=== PATIENT | male | born 1965 | race Caucasian/White ===

== ENCOUNTER 2023-06-03 08:51 | Outpatient (RCR) | payer BC, SELFPAY | END 2023-07-14 16:08 | disposition home or self-care (01) | LOC: PT 08:51 | PROVIDERS: PCP Family Medicine | DX: Z98.890 Other specified postprocedural states (principal) | CPT/HCPCS: 97110; 97112; 97163 ==

== ENCOUNTER 2024-03-07 09:15 | Outpatient (OUT) | payer BC, SELFPAY ==
--- OUTSIDE RECORDS SUMMARY | 2024-03-07 09:30 | XMS_ITS | CCD ---
Author Organization [facility] Care Team Providers Care Waiter/Waitress Captain Name Role Phone Wendy Daniel MD Unavailable Wendy Daniel Primary Care Physician [phone] Wendy Daniel MD Unavailable MARÍA ., DR NGUYEN Consulting Unavailable HOY ., DR NGUYEN Primary Care Unavailable HOY ., DR NGUYEN Admitting Unavailable HOY ., DR NGUYEN Attending Unavailable ZIEBER, DR MAURICE Holly Consulting Unavailable HOY ., DR NGUYEN Admitting Unavailable HOY ., DR NGUYEN Consulting Unavailable HOY ., DR NGUYEN Primary Care Unavailable HOY ., DR NGUYEN Attending Unavailable STAPLETON, DR DAYANARA Harrison Consulting Unavailable DAYANARA ALVAREZ Consulting Unavailable HOY ., DR NGUYEN Consulting Unavailable HOY ., DR NGUYEN Admitting Unavailable HOY ., DR NGUYEN Primary Care Unavailable HOY ., DR NGUYEN Attending Unavailable HOY ., DR NGUYEN Consulting Unavailable HOY ., DR NGUYEN Admitting Unavailable HOY ., DR NGUYEN Primary Care Unavailable HOY ., DR NGUYEN Attending Unavailable HOY ., DR NGUYEN Attending Unavailable HOY ., DR NGUYEN Admconrad Unavailable HOY ., DR NGUYEN Consulting Unavailable HOY ., DR NGUYEN Primary Care Unavailable ZIEBER, DR MAURICE Holly Consulting Unavailable HOY ., DR NGUYEN Admitting Unavailable HOY ., DR NGUYEN Consulting Unavailable HOY ., DR NGUYEN Primary Care Unavailable HOY ., DR NGUYEN Attending Unavailable ZIEBER, DR MAURICE Holly Consulting Unavailable NILL ., DR SHUKLA Attending Unavailable HOY ., DR NGUYEN Primary Care Unavailable NILL ., DR SHUKLA Consulting Unavailable NILL ., DR SHUKLA Admitting Unavailable LEXIE MARTELL Consulting Unavailable CAYLA WEINSTEIN Consulting Unavailable HOY ., DR NGUYEN Admconrad Unavailable HOY ., DR NGUYEN Consulting Unavailable HOY ., DR NGUYEN Primary Care Unavailable HOY ., DR NGUYEN Attending Unavailable Hoy Wendy ORR M Primary Care Provider [phone] Wendy Daniel MD Attending Unavaila ble WENDY DANIEL Primary Care Unavailable PELLE, CLIFF Referring Unavailable BONUS, KEON Attending Unavailable WENDY DANIEL Primary Care Unavailable PELLE, CLIFF Referring Unavailable WENDY DANIEL M Primary Care Unavailable ETHEL INGRAM Referring Unavailable WENDY DANIEL Primary Care Unavailable PELLE, CLIFF Referring Unavailable PELLE, CLIFF Referring Unavailable PELLE, CLIFF Attending Unavailable GRANADO, NICHOLE Referring Unavailable GRANADO, NICHOLE Attending Unavailable BONUS, KEON Attending Unavailable BONUS, KEON Referring Unavailable WENDY DANIEL Primary Care Unavailable PELLE, CLIFF Attending Unavailable PELLE, CLIFF Admitting Unavailable PELLE, CLIFF Referring Unavailable WENDY DANIEL Primary Care Unavailable PEYTON, KEON Attending Unavailable MD Essie Toscano Attending Provider MD Wendy Daniel Primary Care Provider [phone] María Wendy Johnny Primary Care Unavailable Asaad, Imad Attending Unavailable Asaad, Imad Admitting Unavailable NILGayla Mishra R Attending Unavailable NILL, Gayla R Attending Unavailable NILL, Gayla Holly Attending Unavailable Medications Current Medications Medication Drug Class(es) Dates Sig (Normalized) Sig (Original) gabapentin (7 sources) Anti-epileptic Agent Start: 01-27-2023 gabapentin as directed, Refills(s) 0 Start Date: 01/27/23 Status: Ordered Start: 01-23-2023 End: 02-22-2023 take 1 capsule by mouth three times daily gabapentin (NEURONTIN) 300 mg capsule Take 1 capsule by mouth three times daily for 30 days. 90 capsule 0 01/23/2023 Active Comment on above: Take [address] [facility] three times daily for 30 days. oxaprozin 600 mg oral tablet (8 sources) Nonsteroidal Anti-inflammatory Drug Start: 07-22-2023 take 600 mg by mouth once daily Oxaprozin Active 600 MG PO Daily July 22, 2023 12:00am Start: 01-01-2023 take [address] [facility] once daily oxaprozin (DAYPRO) 600 mg tablet Take 1,200 mg by mouth once daily. 0 01/01/2023 Active Comment on above: Take 1,200 mg by erick th once daily. tamsulosin hydrochloride 0.4 mg oral capsule (18 sources) alpha-Adrenergic Pascale Start: 07-22-2023 take 0.4 mg by mouth once daily Tamsulosin Active 0.4 MG PO Daily July 22, 2023 12:00am Start: 08-16-2020 tamsulosin (FL OMAX) 0.4 mg Take by mouth. 0 08/16/2020 Active Comment on above: Take by mouth. Completed/Discontinued Medications Medication Drug Class(es) Dates Sig (Normalized) Sig (Original) baclofen 20 mg oral tablet (5 sources) gamma-Aminobutyri c Acid-ergic Agonist Start: 01-01-2023 take 1 tablet by mouth once daily at bedtime baclofen (LIORESAL) 20 mg tablet Take 20 mg by mouth daily at bedtime. 0 01/01/2023 Active Comment on above: Take 20 mg by mouth daily at bedtime. methocarbamol 500 mg oral tablet (9 sources) Muscle Relaxant Start: 03-27-2023 take 1 tablet by mouth every eight hours as needed methocarbamol (ROBAXIN) 500 mg tablet Take 1 tablet by mouth three times daily as needed for up to 28 doses. 28 tablet 0 03/27/2023 Active Comment on above: Take 1 tablet by erick th three times daily as needed for up to 28 doses. tiZANidine 4 mg oral tablet (5 sources) Central alpha-2 Adrenergic Agonist Start: 01-19-2023 tiZANidine (ZANAFLEX) 4 mg tablet Take 8 mg by mouth daily at bedtime. 0 01/19/2023 Active Comment on above: Take 8 mg by mouth d aily at bedtime. Problems Active Problems Problem Classification Problem Date Documented Da te Episodic/Chronic Alcohol-related disorders (16 sources) Alcohol abuse; Translations: [Alcohol dependence, uncomplicated] Onset: 01-15-2023 01-21-2023 Chronic Deficiency and other anemia (1 source) Anemia, unspecified; Translations: [ANEMIA UNSPECIFIED] Onset: 01-19-2023 Episodic Hyperplasia of prostate (13 sources) Benign prostatic hyperplasia; Translations: [Benign prostatic hyperplasia without lower urinary tract symptoms] Onset: 02-26-2023 01-21-2023 Chronic Other acquired deformities (1 source) Lumbar spondylolisthesis; Translations: [Spondylolisthesis, lumbar region] Episodic Other and unspecified benign neoplasm (1 source) Benign neoplasm of transverse colon; Translations: [BENIGN NEOPLASM OF TRANSVERSE COLON] Onset: 02-26-2023 Episodic Other and unspecified benign neoplasm (1 source) Benign neoplasm of colon; Translations: [Benign neoplasm of colon, unspecified] Onset: 03-03-2023 Episodic Other and unspecified benign neoplasm (1 source) Adenomatous polyp of colon 03-03-2023 Episodic Other and unspecified benign neoplasm (1 source) Polyp of colon; Translations: [Polyp of colon] Onset: 07-22-2023 Episodic Other connective tissue disease (1 source) Pain in left leg; Translations: [PAIN IN LEFT LEG] Onset: 01-18-2023 Episodic Other connective tissue disease (1 source) Pain in right leg; Translations: [PAIN IN RIGHT LEG] Onset: 01-18-2023 Episodic Other gastrointestinal disorders (4 sources) Other fecal abnormalities; Translations: [OTHER FECAL ABNORMALITIES] Onset: 02-18-2023 Episodic Other gastrointestinal disorders (1 source) Occult blood in stools 01-28-2023 Episodic Other male genital disorders (2 sources) Impotence 01-21-2023 Chronic Other nervous system disorders (1 source) Other chronic pain; Translations: [Chronic left-sided low back pain with left-sided sciatica] Onset: 01-23-2023 Chronic Other non-traumatic joint disorders (5 sources) Pain in left hip; Translations: [PAIN IN LEFT HIP] Onset: 10-09-2022 Episodic Other nutritional; endocrine; and metabolic disorders (2 sources) Overweight in adulthood with body mass index of 25 or more but less than 30 01-27-2023 Episodic Other screening for suspected conditions (not mental disorders or infectious disease) (2 sources) Encounter for screening for malignant neoplasm of rectum; Translations: [Encounter for screening for malignant neoplasm of prostate] Onset: 06-26-2022 Episodic Residual codes; unclassified (2 sources) History of lumbar laminectomy; Translations: [Other specified postprocedural states] Episodic Spondylosis; intervertebral disc disorders; other back problems (2 sources) Lumbar spondylosis; Translations: [Spondylosis without myelopathy or radiculopathy, lumbar region] Onset: 01-23-2023 Chronic Substance-related disorders (13 sources) Smoker; Translations: [Nicotine dependence, cigarettes, uncomplicated] Onset: 02-26-2023 01-21-2023 Chronic Varicose veins of lower extremity (1 source) Varicose veins of bilateral lower extremities with pain; Translations: [VARICOSE VNS SAQIB LOW EXTREM W/PAIN] Onset: 01-19-2023 Episodic Past or Other Problems Problem Classification Problem Date Documented Da te Episodic/Chronic Administrative/social admission (2 sources) Education and/or schooling finding; Translations: [Problems related to education and literacy, unspecified] Onset: 03-18-2023 Episodic Other acquired deformities (1 source) Spondylolisthesis , lumbar region; Translations: [Spondylolisthesi s of lumbar region] Onset: 01-23-2023 Episodic Spondylosis; intervertebral disc disorders; other back problems (17 sources) Lumbar radiculopathy; Translations: [Radiculopathy, lumbar region] Onset: 01-07-2023 Episodic Results Test Name Value Interpretation Reference Range Facility Outside Colonoscopyon 2022 Outside Colonoscopy [id number]#1 .00CD:127 Normal [facility] Pathology Noteon 08-11-2023 Pathology Note [id number]# 1.00CD:127 [facility] 07-22-2023 L - -------- Specimen: [id number] Received: 07/22/23 Status: ARIEL Henriquez Num: [id number] Spec Type: Surgical Subm Dr: Essie Toscano MD Tissues: A Colon Biopsy (CECAL POLYP) B Colon Biopsy (ASCENDING COLON POLYP) C Colon Biopsy (SIGMOID POLYP) D Colon Biopsy (RECTAL POLYP) Procedures: HE/8, Gross/Micro L4/4 -------- Age/ Patient Sex Location Account Attending Physician -------- Mimi Villasenor /[facility] [id number] Essie Toscano MD -------- SPEC NUM: [id number] RECD: 07/22/23 STATUS: ARIEL HENRIQUEZ NUM: [id number] EDUARDO: 07/22/23-[address] [facility] [address]: Essie Toscano MD ENTERED: 07/22/[address] [facility] [address]: PAYTON TYPE: Surgical DEPT: S ENTERED BY: [id number] RECV BY: [id number] ORDERED: HE/8, Gross/Micro L4/4 ORDERED: HE/8, Gross/Micro L4/4 Pathological Diagnosis A. Polyp, Cecum, Biopsy: Tubular Adenoma. - Negative For High Grade Dysplasia And Malignancy. B. Polyp, Ascending Colon, Biopsy: Tubular Adenoma. - Negative For High Grade Dysplasia And Malignancy. C. Polyp, Sigmoid Colon, Biopsy: Tubular Adenoma. - Negative For High Grade Dysplasia And Malignancy. D. Polyp, Rectum, Biopsy: Serrated Polyp. - Negative For Dysplasia And Malignancy. Clinical Information Colon polyps -------- Specimen: [id number] Received: 07/22/23 Status: ARIEL Henriquez Num: [id number] Spec Type: Surgical Subm Dr: Essie Toscano MD Tissues: A Colon Biopsy (CECAL POLYP) B Colon Biopsy (ASCENDING COLON POLYP) C Colon Biopsy (SIGMOID POLYP) D Colon Biopsy (RECTAL POLYP) Procedures: , Gross/Micro L4/4 -------- Patient: Mimi Villasenor [id number] (Continued) -------- Specimen: [id number] Received: 07/22/23 (Continued) Signed (signature on file) Jammie Meraz MD 07/30/23 2304 -------- Specimen: [id number] Received: 07/22/23 Status: ARIEL Henriquez Num: [id number] Spec Type: Surgical Subm Dr: Essie Toscano MD Tissues: A Colon Biopsy (CECAL POLYP) B Colon Biopsy (ASCENDING COLON POLYP) C Colon Biopsy (SIGMOID POLYP) D Colon Biopsy (RECTAL POLYP) Procedures: /Bhaskar, Gross/Micro L4/4 -------- Patient: Mimi Villasenor [id number] (Continued) -------- Specimen: [id number] Received: 07/22/23 (Continued) Gross Description A. Received in formalin labeled with the patient's name, date of and cecal polyp are two kelley tissues averaging 0.4 x 0.3 x 0.1 cm. Entirely submitted in one cassette labeled A1. B. Received in formalin labeled with the patient's name, date of and ascending colon polyp are multiple kelley tissues and fecal material measuring 3.0 x 1.7 x 0.3 cm in aggregate. Entirely submitted in one cassette labeled B1. C. Received in formalin labeled with the patient's name, date of and sigmoid polyp is one kelley tissue measuring 0.5 x 0.3 x 0.1 cm. Entirely submitted in one cassette labeled C1. D. Received in formalin labeled with the patient's name, date of and rectal polyp is one kelley tissue measuring 0.5 x 0.3 x 0.2 cm. Entirely submitted in one cassette labeled D1. Microscopic Description A. Two H E slides reviewed. The microscopic examination confirms the diagnosis. B. Two H E slides reviewed. The microscopic examination confirms the diagnosis. C. Two H E slides reviewed. The microscopic examination confirms the diagnosis. D. Two H E slides reviewed. The microscopic examination confirms the diagnosis. CPT Codes 92771b4 -------- -------- Specimen: [id number] Received: 07/22/23 Status: ARIEL Henriquez Num: [id number] Spec Type: Surgical Subm Dr: Essie Toscano MD Tissues: A Colon Biopsy (CECAL POLYP) B Colon Biopsy (ASCENDING COLON POLYP) C Colon Biopsy (SIGMOID POLYP) D Colon Biopsy (RECTAL POLYP) Procedures: HE/Bhaskar, Gross/Micro L4/4 -------- Patient: HamiltonMimi [id number] (Continued) --------- (more content not included)... [facility] CNPAngella 06-26-2023 CNPN Telephone (SPNSMN) MIMI VILLASENOR ([id number]) 1965 M BMD Date Time Provider Department 06/26/23 CLIFF GOMES During your visit today, we recorded the following information about you: Brittany Apple 06/26/2023 3:54 PM Signed Return to work letter faxed to: Akhil Cornelius And to: Attn: Tierra Confirmation received for both. Fidelia Adams 06/29/2023 5:00 PM Signed Fax and confirmed RTW letter to the updated fax number for HR Tierra [phone] Allergies As of Date: 06/26/2023 (No Known Allergies) Date Reviewed: 03/27/2023 Reviewed by: Maddie Kay, CHRISTEN - Fully Assessed Reason for Visit: Return To Work Letter [0989] Prescriptions as of 06/29/2023 - methocarbamol (ROBAXIN) 500 mg tablet Take 1 tablet by mouth three times daily as needed for up to 28 doses. - tamsulosin (FLOMAX) 0.4 mg Take by mouth. Problem List As Of Date 06/26/2023 Noted Resolved Benign prostatic hyperplasia [N40.0] 02/26/2023 Current smoker [F17.200] 02/26/2023 Alcohol abuse [F10.10] 03/10/2023 Encounter Status:Closed by BRITTANY APPLE on 06/26/23 [facility] Cherrie 06-01-2023 ROMÁN Telephone (NIQ) MIMI VILLASENOR ([id number]) 1965 M BMD Date Time Provider Department 06/01/23 KEON TODD During your visit today, we recorded the following information about you: Chyna Tar Chaser, Claudia 06/01/2023 3:10 PM Signed received Restrictions form- given to PRIMARY TEACHING ASSISTANT team to process. Peace Toney LPN 06/01/2023 4:05 PM Signed Received, Reviewed [employer] [facility] forms and need signed by Dr. Gomes Placed on Brittany's [employer], to get signed and fax/scan to patient chart Leave dates: 03/27/23-TBD Per Keon Todd note 05/28/23: He has a physical job. We discussed plan of starting PT and in 4 weeks we will evaluate for RTW. Follow up scheduled for 06/26/23. VLAD Lee Suzanna 06/10/2023 1:17 PM Signed Restrictions form completed, signed and faxed to: [employer] [facility] Confirmation received, copy scanned to chart. Allergies As of Date: 06/01/2023 (No Known Allergies) Date Reviewed: 03/27/2023 Reviewed by: Maddie Kay, CHRISTEN - Fully Assessed Reason for Visit: Restriction form [Other] Prescriptions as of 06/10/2023 - methocarbamol (ROBAXIN) 500 mg tablet Take 1 tablet by mouth three times daily as needed for up to 28 doses. - tamsulosin (FLOMAX) 0.4 mg Take by mouth. Problem List As Of Date 06/01/2023 Noted Resolved Benign prostatic hyperplasia [N40.0] 02/26/2023 Current smoker [F17.200] 02/26/2023 Alcohol abuse [F10.10] 03/10/2023 Encounter Status:Closed by BRITTANY APPLE on 06/10/23 [facility] Cherrie 05-07-2023 ROMÁN Telephone (NIQ) MIMI VILLASENOR ([id number]) 1965 M BMD Date Time Provider Department 05/07/23 CLIFF GOMES During your visit today, we recorded the following information about you: Jessy Apodaca Oncology Physician Assistant 05/07/2023 12:25 PM Signed Patient is calling to know if he can start doing some yard work like riding his formulation chemist anything light he can do around the home call back [phone] Yaya Coronel RN 05/07/2023 1:22 PM Signed Neuro SPINE CARE COORDINATION QUICK NOTE SERVICE DATE: 04/10/2023- YOUNG with Keon BRITO SURGERY DATE: 03/27/23 L3-4 laminectomy Call to the pt to clarify 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 All post op restrictions have been reviewed at length Allergies As of Date: 05/07/2023 (No Known Allergies) Date Reviewed: 03/27/2023 Reviewed by: Maddie Kay RN - Fully Assessed Reason for Visit: Patient Question [2287] Prescriptions as of 05/07/2023 - methocarbamol (ROBAXIN) 500 mg tablet Take 1 tablet by mouth three times daily as needed for up to 28 doses. - tamsulosin (FLOMAX) 0.4 mg Take by mouth. Problem List As Of Date 05/07/2023 Noted Resolved Benign prostatic hyperplasia [N40.0] 02/26/2023 Current smoker [F17.200] 02/26/2023 Alcohol abuse [F10.10] 03/10/2023 Encounter Status:Closed by YAYA CORONEL on 05/07/23 [facility] Cherrie 04-27-2023 JOSUEN Telephone (BRENTQ) MIMI VILLASENOR ([id number]) 1965 M BMD Date Time Provider Department 04/27/23 CLIFF GOMES During your visit today, we recorded the following information about you: Jessy Apodaca Oncology Physician Assistant 04/27/2023 9:29 AM Signed Received 3 pages for patient Short Term Disability from [facility] [employer] requesting more information (medical) gave to PRIMARY TEACHING ASSISTANT's Zuleima/Dia for review Yaya Coronel RN 04/27/2023 10:13 AM Signed Neuro SPINE CARE COORDINATION QUICK NOTE noted Peace Toney LPN 04/27/2023 11:42 AM Signed STD forms stating more information requested. Printed Operative report, discharge summary and VV note from ALISHA Shannon. Gave to BIRGIT Jiménez to fax back to number provided. Allergies As of Date: 04/27/2023 (No Known Allergies) Date Reviewed: 03/27/2023 Reviewed by: Maddie Kay RN - Fully Assessed Reason for Visit: Short Term Disability paperwork [Other] Prescriptions as of 04/27/2023 - methocarbamol (ROBAXIN) 500 mg tablet Take 1 tablet by mouth three times daily as needed for up to 28 doses. - tamsulosin (FLOMAX) 0.4 mg Take by mouth. Problem List As Of Date 04/27/2023 Noted Resolved Benign prostatic hyperplasia [N40.0] 02/26/2023 Current smoker [F17.200] 02/26/2023 Alcohol abuse [F10.10] 03/10/2023 Encounter Status:[facility] Telephone (NIQ) MIMI VILLASENOR ([id number]) 1965 M BMD Date Time Provider Department 04/24/23 CLIFF GOMES During your visit today, we recorded the following information about you: Claudia Clemente Tar Chaser 04/24/2023 10:29 AM Signed pt had surgery on 03/27. Pt scheduled for colonoscopy scheduled, pt would like to discuss with RN if its okay to have colonoscopy post -op. Call back: [phone] Yaya Coronel RN 04/24/2023 11:47 AM Addendum Neuro SPINE CARE COORDINATION POST OP FOLLOW UP SURGERY/PROCEDURE: L3-L4 decompressive lumbar laminectomy, medial facetectomy, foraminotomy.( 03/27/23) No LE symptoms- minimal LBP only - he continues to ice. He will scheduled his colonoscopy Pt is requesting updated [employer] forms to confirm his work date. His HR is stating that his RTW is today No RTW date has been decided Next follow up on 05-28-23 Form updated with PRIMARY TEACHING ASSISTANT- this will be refaxed. CHRISTEN Armijo LPN 04/24/2023 12:01 PM Signed Forms reviewed and revised. Per Yaya RTW will be determined at next office visit 05/28/23. Gave forms to Johanna to have provider review and sign and fax back. Brittany Leander [facility] 04/24/2023 2:54 PM Signed Revised forms faxed to: [employer] Confirmation received. Allergies As of Date: 04/24/2023 (No Known Allergies) Date Reviewed: 03/27/2023 Reviewed by: Maddie Kay RN - Fully Assessed Reason for Visit: Patient Question [1477] Prescriptions as of 04/24/2023 - methocarbamol (ROBAXIN) 500 mg tablet Take 1 tablet by mouth three times daily as needed for up to 28 doses. - tamsulosin (FLOMAX) 0.4 mg Take by mouth. Problem List As Of Date 04/24/2023 Noted Resolved Benign prostatic hyperplasia [N40.0] 02/26/2023 Current smoker [F17.200] 02/26/2023 Alcohol abuse [F10.10] 03/10/2023 Encounter Status:Closed by YAYA CORONEL on 04/24/23 [facility] Cherrie 04-10-2023 CNPN Telephone (SPNSMN) MIMI VILLASENOR ([id number]) 1965 [facility] Date Time Provider Department 04/10/23 KEON TODD SPNSMN During your visit today, we recorded the following information about you: Keon Todd PA-C 04/10/2023 7:30 AM Signed Patient was scheduled for VV. Did not connect. Called listed number but no answer. Left VM. Keon Todd PA-C Allergies As of Date: 04/10/2023 (No Known Allergies) Date Reviewed: 03/27/2023 Reviewed by: Maddie Kay RN - Fully Assessed Reason for Visit: Appointment [186] Prescriptions as of 04/10/2023 - acetaminophen (TYLENOL EXTRA STRENGTH) 500 mg tablet Take 2 tablets by mouth every 8 hours for 14 days. - methocarbamol (ROBAXIN) 500 mg tablet Take 1 tablet by mouth three times daily as needed for up to 28 doses. - tamsulosin (FLOMAX) 0.4 mg Take by mouth. Problem List As Of Date 04/10/2023 Noted Resolved Benign prostatic hyperplasia [N40.0] 02/26/2023 Current smoker [F17.200] 02/26/2023 Alcohol abuse [F10.10] 03/10/2023 Encounter Status:Closed by KEON TODD on 04/10/23 [facility] ANES POSTPROC EVALon 023 ANES POSTPROC EVAL HNO ID: [id number] Author: Luis Barreto MD Service: ? Author Type: Anesthesiologist Type: Anesthesia Postprocedure Evaluation Filed: 03/27/2023 9:52 AM Note Text: POST ANESTHESIA EVALUATION NOTE : 1965 Procedure Summary Date: 03/27/23 Room / Location: MAIN OR14 / [facility] Anesthesia Start: 740 Anesthesia Stop: 936 Procedure: DECOMPRESSION LAMINECTOMY LUMBAR POSTERIOR LEVEL 1 (Spine levels L2-L3-L4) Diagnosis: Lumbar radiculopathy Pre-op testing (Lumbar radiculopathy [M54.16]) (Pre-op testing [Z01.818]) Surgeons: Cliff Gomes MD Responsible Provider: Luis Barreto MD Anesthesia Type: general ASA Status: 2 Anesthesia Type: general Airway Type: ETT Last Vitals Vitals Value Taken Time BP 135/86 03/27/23 0945 Temp 36.3 ?C (97.3 ?F) 03/27/23 0938 Pulse 69 03/27/23 0950 Resp 14 03/27/23 0950 SpO2 97 % 03/27/23 0950 Vitals shown include unvalidated device data. Post Anesthesia Patient Status Patient Evaluation: bedside. Anticipated Disposition: phase 2 then home. Neurological Status: aware and responsive. Pulmonary Status: breathing comfortably on supplemental oxygen Airway Control: returned to baseline unsupported. Cardiovascular Status: stable. Pain Management: clinically adequate Postoperative Hydration: acceptable. Intraoperative Events: no significant anesthesia events Post Operative Nausea/Vomiting Status: no significant post operative nausea or vomiting Recommendation: further care per PACU/ICU/floor team. Anesthesia Observations No Documentation SIGNATURE: Luis Barreto MD PATIENT NAME: Mimi Villasenor DATE: March 27, 2023 TIME: 9:52 AM CSN: [id number] Normal [facility] ANES PRE-OPon 03-27-2023 ANES PRE-OP HNO ID: [id number] Author: Luis Barreto MD Service: ? Author Type: Anesthesiologist Type: Anesthesia Preprocedure Evaluation Filed: 03/27/2023 7:45 AM Note Text: ANESTHESIOLOGY DAY OF SURGERY NOTE : 1965 Procedure Information Date/Time: 03/27/23729 Procedure: DECOMPRESSION LAMINECTOMY LUMBAR POSTERIOR LEVEL 1 (Spine levels L2-L3-L4) Location: MAIN [address] [facility] Surgeons: Cliff Gomes MD Estimated body mass index is 25.09 kg/m? as calculated from the following: Height as of 03/10/23: 182.9 cm (6'). Weight as of 03/10/23: 83.9 kg (185 lb). Most recent hematocrit and potassium results: Hematocrit 47.4 03/10/2023 Potassium 3.9 03/10/2023 Relevant Problems No relevant active problems I - PHYSICAL EVALUATION AIRWAY Patient intubated: No. Tracheostomy tube not present Mallampati: II. TM distance: >3 FB. Neck ROM: full ROM without neurological symptoms. Mouth opening: adequate. Short neck: no. Thick neck: no Gu present: no DENTAL Dental findings: teeth intact. Additional exam findings: no II - ANESTHESIA PLAN ASA Score: 2 Anesthetic Plan: general Airway type: ETT The patient is a current smoker. NPO Status: adequate Beta Pascale Monitoring Plan Monitoring plan: standard ASA. Post Procedure Analgesic Plan Postoperative analgesic plan: parenteral or oral opioids. Informed Consent Anesthetic risks, benefits, alternatives, personnel and consent discussed: yes. Patient / Responsible Alliance Party agrees to proceed: yes Patient / Surrogate agrees to blood products: Yes DNR status not reviewed with patient and/or family prior to surgery. Significant changes in the patient condition since the History and Physical, not otherwise documented in primary service progress note: no. Potential Anesthesia issues that may suggest increased risk of complications or contraindication to planned procedure: none. Discussed the possibility of lip / dental damage: no Vitals Value Taken Time BP 113/75 03/27/23 0602 Pulse 74 03/27/23 0602 Resp 16 03/27/23 0602 Temp 36.1 ?C (97 ?F) 03/27/23 06 SpO2 97 % 03/27/23 0602 Facility-Administered Medications as of 03/27/2023 Medication Dose Route Frequency - lidocaine (PF) 10 mg/mL (1 %) 1-2 mg injection (XYLOCAINE) 0.1-0.2 mL INTRADERMAL PRN Or - lidocaine 1% 0.25 mL subcutaneous j-tip syringe (XYLOCAINE) 0.25 mL SUBCUTANEOUS PRN - lactated ringers iv infusion 5-30 mL/hr INTRAVENOUS CONTINUOUS - NaCl 0.9% iv flush bag 20 mL INTRAVENOUS PRN - ceFAZolin iv piggyback 2 g in D5W (iso-osmotic) 100 mL (ANCEF) 2 g INTRAVENOUS Pre-Op Once - [COMPLETED] acetaminophen 1,000 mg tab(s) (TYLENOL) 1,000 mg ORAL ONCE - [COMPLETED] gabapentin 300 mg cap(s) (NEURONTIN) 300 mg ORAL ONCE Outpatient Medications as of 03/27/2023 Medication Sig - tamsulosin (FLOMAX) 0.4 mg Take by mouth. I have interviewed and examined the patient. I have reviewed the medical record and/or the pre-anesthesia evaluation, pertinent labs, and test results. This contains updated information obtained within 48 hours of Surgery/Procedure. SIGNATURE: Lindsey Nair MD PATIENT NAME: Mimi Villasenor DATE: March 27, 2023 TIME: 7:13 AM CSN: [id number] [facility] BRIEF OP NOTon 03-27-2023 BRIEF OP NOT HNO ID: [id number] Author: Cliff Gomes MD Service: Neurosurgery Author Type: Physician Type: Brief Op Note Filed: 04/14/2023 2:47 PM Note Text: BRIEF OPERATIVE / PROCEDURE NOTE LOG ID: [id number] Surgery/Procedure Date: 03/27/2023 Incision/Procedure Start Time: 8:13 AM Incision Close/Procedure End Time: 9:26 AM Surgeon(s)/Procedural ist(s) and Panel Flow Machine Operator(s): Surgeon(s) and Role: * Cliff Gomes MD - Primary * Lino Plasencia MD - Resident - Assisting * Carlitos Person MD - Fellow Procedure(s): Procedure(s) (LRB): DECOMPRESSION LAMINECTOMY LUMBAR POSTERIOR LEVEL 1 (N/A) Anesthesia: General Approach: Posterior Findings: see dictation Estimated Blood Loss: 50cc Specimens: None Complications: None Pre-Op/Pre-Procedure Diagnosis: Lumbar radiculopathy [M54.16] Pre-op testing [Z01.818] Post-Op/Post-Procedur e Diagnosis: * No post-op diagnosis entered * SIGNATURE: Cliff Gomes MD PATIENT NAME: Mimi Villasenor DATE: April 14, 2023 TIME: 2:47 PM PAGER/CONTACT #: [facility] OPERATIVE NOon 03-27-2023 OPERATIVE NO HNO ID: [id number] Author: Cliff Gomes MD Service: Neurosurgery Author Type: Physician Type: Operative Report Filed: 04/15/2023 7:27 AM Note Text: [facility] - Operative Report [address] [id number] [place] : 1965 AGE: 57. SEX: M PATIENT TYPE: A HOSP C: [facility] LOCATION: [place] [address] ATTENDING PHYSICIAN: Cliff Gomes M.D. CSN NUMBER: [id number] DATE OF SURGERY/PROCEDURE: 03/27/2023 INCISION/PROCEDURE START TIME: 08:13 a.m. INCISION CLOSE/PROCEDURE END TIME: 09:26 a.m. PREOPERATIVE DIAGNOSIS: Lumbar radiculopathy, neurogenic claudication due to lumbar spinal stenosis. POSTOPERATIVE DIAGNOSIS: Lumbar radiculopathy, neurogenic claudication due to lumbar spinal stenosis. SURGEON: Cliff Gomes M.D. QUICK MIXER OPERATOR: 1. Dr. Carlitos Person. Dr. Perosn assisted in the absence of a qualified resident being available. 2. SURGERY/PROCEDURE: L3-L4 decompressive lumbar laminectomy, medial facetectomy, foraminotomy. ANESTHESIA: General endotracheal anesthesia. FINDINGS: Adequate decompression of neural elements. ESTIMATED BLOOD LOSS: Less than 50 mL. SPECIMENS: None. COMPLICATIONS: None. OPERATIVE INDICATIONS: Very pleasant 57-year-old male with the aforementioned diagnosis. Risks, benefits, alternative treatments, and expected outcomes of the aforementioned surgery were discussed in comprehensive detail. The patient elected to proceed with operative intervention. Written consent was signed. DESCRIPTION OF PROCEDURE: The patient was brought to the operating room theater. Appropriate huddle was performed per hospital guideline standards. After huddle was performed, the patient was anesthetized per Anesthesia documentation, flipped prone on Neeraj table. All bony prominences were padded. No Muñoz catheter, Bilateral SCDs. A pre-incision radiograph was obtained. Midline incision was made after audible time-out was performed and the lumbar spine was prepped and draped in a sterile fashion. Subperiosteal exposure of the spine was done and final retractors were placed and localization was done based on spine health guideline. After this was done, portion of L3 and L4 spinous process removed with Leksell rongeur. The portions of the L3 and L4 laminectomy using Leksell rongeur safely were done too. The remainder of the lamina was drilled with high-speed pneumatic drill down to the ligamentum flavum. Once the ligamentum flavum was dissected free from the underlying dura, it was wound 4 punch Kerrison rongeur. Pedicle to pedicle decompression from 3-3 and 4-4 was done with a 4-punch Kerrison rongeur. The medial facets were undercut. Foraminotomies were performed with a 4-punch Kerrison rongeur. The wound was copiously irrigated. No CSF was encountered. The hemostasis was achieved meticulously and the wound was closed in layers. I performed the surgery aside from initial positioning, opening, closing, which was done by Dr. Person under my direct supervision. Cliff Gomes M.D. DP:[id number] /[id number] Normal [facility] XR LUMBAR SPECIFY 1Von 03-27 XR LUMBAR SPECIFY 1V * * *Final Report* * * DATE OF EXAM: Mar 27 2023 8:52AM ESX 5234 - XR LUMBAR SPECIFY 1V / PROCEDURE REASON: INTRA OP * * * * Physician Interpretation * * * * EXAMINATION / TECHNIQUE: XR LUMBAR SPECIFY 1V HISTORY: INTRA OP COMPARISON: Same day spine level verification RESULT: Counting reference: Lumbosacral junction. For the purposes of this report, L4-5 is considered the level of the iliac crest and there are 5 lumbar-type vertebrae. Anatomic Variants: None. Intraoperative radiograph for localization demonstrating surgical instrument, slightly larger than the last, with tip now projecting along the L3-L4 neural foramen. IMPRESSION: Radiograph for intraoperative guidance Travel Registered Nurse [facility] Transcribe Date/Time: Mar 27 2023 8:56A Dictated by : LIZZIE LAWRENCE MD This examination was interpreted and the report reviewed and electronically signed by: LIZZIE LAWRENCE MD on Mar 27 2023 8:57AM EST [id number] Normal [facility] XR LUMBAR SPECIFY 1V * * *Final Report* * * DATE OF EXAM: Mar 27 2023 8:12AM ESX 5234 - XR LUMBAR SPECIFY 1V / PROCEDURE REASON: pre incisional * * * * Physician Interpretation * * * * EXAMINATION / TECHNIQUE: XR LUMBAR SPECIFY 1V HISTORY: pre incisional COMPARISON: 01/23/2023 RESULT: Counting reference: Lumbosacral junction. For the purposes of this report, L4-5 is considered the level of the iliac crest and there are 5 lumbar-type vertebrae. Anatomic Variants: None. Preinsertional operative radiograph demonstrating a posterior approach needle extending towards the inferior aspect of the L3 posterior spinous process at the L3-L4 level. Degenerative findings and alignment are unchanged when compared to the 01/23/2023 radiographs. No acute osseous abnormality IMPRESSION: Preincisional radiograph for operative guidance Travel Registered Nurse Oncology[facility] Transcribe Date/Time: Mar 27 2023 8:31A Dictated by : LIZZIE LAWRENCE MD This examination was interpreted and the report reviewed and electronically signed by: LIZZIE LAWRENCE MD on Mar 27 2023 8:36AM EST [id number] Normal [facility] XR VERIFY LEVEL [id number] 03-27-2023 XR VERIFY LEVEL L-SPINE-NB * * *Final Report* * * DATE OF EXAM: Mar 27 2023 8:17AM ESX 5642 - XR VERIFY LEVEL L-SPINE-NB / PROCEDURE REASON: localiaation * * * * Physician Interpretation * * * * EXAMINATION / TECHNIQUE: XR VERIFY LEVEL L-SPINE-NB HISTORY: localiaation. COMPARISON: Same day spine level specify RESULT: Counting reference: Lumbosacral junction. For the purposes of this report, L4-5 is considered the level of the iliac crest and there are 5 lumbar-type vertebrae. Anatomic Variants: None. See Impression. IMPRESSION: Intraprocedural image for the purposes of localization demonstrating posterior approach instruments projecting at the L3 pars. See procedure report for details. COMMUNICATION: Communicated with CLIFF GOMES on 03/27/2023 8:23 AM via verbal communication. Travel Registered Nurse Oncology: [facility] Transcribe Date/Time: Mar 27 2023 8:22A Dictated by : LIZZIE LAWRENCE MD This examination was interpreted and the report reviewed and electronically signed by: LIZZIE LAWRENCE MD on Mar 27 2023 8:23AM EST [id number] Normal [facility] CNNURSEon 03-18-2023 CNNURSE Nurse Visit (SPNSMN) HAMILTONMIMI ([id number]) 1965 M BMD Date Time Provider Department 03/18/23 10:00 AM NANCY CALVERT During your visit today, we recorded the following information about you: Dia Covarrubias LPN 03/18/2023 9:50 AM Signed Neuro SPINE CARE COORDINATION PRE-OP VISIT Spoke with patient for pre op education. Given both written and verbal instructions re : Skin prep, wound care, pain management and post op restrictions. Provided to patient: [facility] Surgery Guide, skin prep supplies, Spine Surgery Pre/post op education packet. Yes Reviewed with patient to report to desk Azimo for surgery ? Yes. Reviewed with the patient to call [phone] the day before to get surgery report time? Yes. Patient aware eat nothing after midnight prior to surgery, clear liquids only until 2 hours before report time. Yes. Patient aware surgery will be OUTPATIENT. Discussed care post discharge : Self care. Does patient have transportation to and from surgery ? Yes. Falls Education provided ? Yes Questions answered and patient voice(s) understanding via teach back. Physical Therapy : NO Additional Comments : Post -op Support All questions answered . Dia Covarrubias LPN Referring Provider: CLIFF GOMES [[id number]] Allergies As of Date: 03/18/2023 (No Known Allergies) Date Reviewed: 03/10/2023 Reviewed by: Ethel Ingram APRN.TECHNICAL SALES SPECIALIST - Fully Assessed Primary Visit Diagnosis:Educational circumstance [Z55.9] Prescriptions as of 03/18/2023 - tamsulosin (FLOMAX) 0.4 mg Take by mouth. Problem List As Of Date 03/18/2023 Noted Resolved Benign prostatic hyperplasia [N40.0] 02/26/2023 Current smoker [F17.200] 02/26/2023 Alcohol abuse [F10.10] 03/10/2023 Encounter Status:Closed by DIA COVARRUBIAS on 03/18/23 Normal [facility] Cherrie 03-11-2023 CNPN Telephone (SPNSMN) MIMI VILLASENOR ([id number]) 1965 [facility] Date Time Provider Department 03/11/23 [facility] During your visit today, we recorded the following information about you: Brittany Kingston 03/11/2023 10:11 AM Signed Restrictions Form and Attending Physician's Statement completed and faxed to: [employer] Confirmation received and copy scanned to chart. Allergies As of Date: 03/11/2023 (No Known Allergies) Date Reviewed: 03/10/2023 Reviewed by: Ethel Ingram APRN.TECHNICAL SALES SPECIALIST - Fully Assessed Reason for Visit: Forms [913] Prescriptions as of 03/11/2023 - mupirocin (BACTROBAN) 2 % ointment twice daily for 5 days. Apply 0.5 inch with cotton swab (Q-tip) to each nostril in the morning and evening for 5 days prior to and including day of surgery. - tamsulosin (FLOMAX) 0.4 mg Take by mouth. Problem List As Of Date 03/11/2023 Noted Resolved Benign prostatic hyperplasia [N40.0] 02/26/2023 Current smoker [F17.200] 02/26/2023 Alcohol abuse [F10.10] 03/10/2023 Encounter Status:Closed by BRITTANY APPLE on 03/11/23 [facility] Basic metabolic 2000 panelon 03-10-2023 Anion gap [Moles/Vol] 12 mmol/L Normal - [facility] Comment on above: Order Comment: Speci men Type: BLOOD SPECIMEN Ordering Facility: [facility] Address: [address] [place] [address] [place] [address] Performed By: #### 2 4321-2 #### [facility] CLIA [id number] [address] [place] [address] [place] Calcium [Mass/Vol] 9.4 mg/dL Normal 8.5-10.2 [facility] Comment on above: Order Comment: Speci men Type: BLOOD SPECIMEN Ordering Facility: [facility] Address: [address] [place], [place] [address] Performed By: #### 2 4321-2 #### [facility] CLIA [id number] [address] [place] [address] [place] Chloride [Moles/Vol] 107 mmol/L High 97-105 [facility] Comment on above: Order Comment: Speci men Type: BLOOD SPECIMEN Ordering Facility: [facility] Address: [address] [address] Performed By: #### 2 4321-2 #### [facility] CLIA [id number] [address] [place] [address] [place] CO2 [Moles/Vol] 22 mmol/L Normal 22-30 [facility] Comment on above: Order Comment: Speci men Type: BLOOD SPECIMEN Ordering Facility: [facility] Address: [address] Performed By: #### 2 4321-2 #### [facility] CLIA [id number] [address] [place] [address] [place] Creatinine [Mass/Vol] 0.62 mg/dL Low 0.73-1.22 [facility] Comment on above: Order Comment: Speci men Type: BLOOD SPECIMEN Ordering Facility: [facility] Address: [address] Performed By: #### 2 4321-2 #### [facility] CLIA [id number] [address] [place] [address] [place] ESTIMATED GLOMERULAR FILTRATION RATE 111 mL/min/1.73m??? Normal >=60 [facility] Comment on above: Order Comment: Ciara reinoso Type: BLOOD SPECIMEN Ordering Facility: [facility] Address: [address] [place] [address] Result Comment: Gabrielle mated Glomerular Filtration Rate (eGFR) is calculated using the 2020 CKD-EPI creatinine equation. This equation utilizes serum creatinine, sex, and age as parameters. The creatinine assay has traceable calibration to isotope dilution-mass spectrometry. Refer to KDIGO guidelines for clinical interpretation. In patients with unstable renal function, e.g. those with acute kidney injury, the eGFR may not accurately reflect actual GFR. Performed By: #### 2 4321-2 #### [facility] CLIA [id number] [address] [place] [address] [place] Glucose [Mass/Vol] 86 mg/dL Normal 74-99 [facility] Comment on above: Order Comment: Ciara reinoso Type: BLOOD SPECIMEN Ordering Facility: [facility] Address: [address] [place] [address] Result Comment: The [place] Diabetes Association (ADA) provides guidance for cutoff values for fasting glucose and random glucose. The ADA defines fasting as no caloric intake for at least 8 hours. Fasting plasma glucose results between 100 to 125 mg/dL indicate increased risk for diabetes (prediabetes). Fasting plasma glucose results greater than or equal to 126 mg/dL meet the criteria for diagnosis of diabetes. In the absence of unequivocal hyperglycemia, results should be confirmed by repeat testing. In a patient with classic symptoms of hyperglycemia or hyperglycemic crisis, random plasma glucose results greater than or equal to 200 mg/dL meet the criteria for diagnosis of diabetes. Reference: Standards of Medical Care in Diabetes 2016, [place] Diabetes Association. Diabetes Care. 2016.39(Suppl 1). Performed By: #### 2 4321-2 #### [facility] CLIA [id number] [address] [place] [address] [place] Potassium [Moles/Vol] 3.9 mmol/L Normal 3.7-5.1 [facility] Comment on above: Order Comment: Ciara reinoso Type: BLOOD SPECIMEN Ordering Facility: [facility] Address: [address] Performed By: #### 2 4321-2 #### [facility] CLIA [id number] [address] [place] [address] [place] Sodium [Moles/Vol] 141 mmol/L Normal 136-144 [facility] Comment on above: Order Comment: Speci men Type: BLOOD SPECIMEN Ordering Facility: [facility] Address: [address] Performed By: #### 2 4321-2 #### [facility] CLIA [id number] [address] [place] [address] [place] Urea nitrogen [Mass/Vol] 8 mg/dL Low 9-24 [facility] Comment on above: Order Comment: Speci men Type: BLOOD SPECIMEN Ordering Facility: [facility] Address: [address] Performed By: #### 2 4321-2 #### [facility] CLIA [id number] [address] [place] [address] [place] CBC W Auto Differential pane l (Bld)on 03-10-2023 Basophils (Bld) [#/Vol] 0.05 10*3/uL Normal <0.11 [facility] Comment on above: Order Comment: Speci men Type: SWAB OF INTERNAL NOSE Ordering Facility: [facility] Address: [address] Performed By: #### S APCR #### [facility] CLIA [id number] [facility] [place] [address] [place] Basophils/100 WBC (Bld) 0.4 % Normal [facility] Comment on above: Order Comment: Speci men Type: SWAB OF INTERNAL NOSE Ordering Facility: [facility] Address: [address] Performed By: #### S APCR #### [facility] CLIA [id number] [address] [place] [address] [place] Differential cell count method Nom (Bld) Auto Normal [facility] Comment on above: Order Comment: Speci men Type: SWAB OF INTERNAL NOSE Ordering Facility: [facility] Address: [address] [place] [address] Performed By: #### S APCR #### [facility] CLIA [id number] [address] [place] [address] [place] Eosinophils (Bld) [#/Vol] 0.10 10*3/uL Normal <0.46 [facility] Comment on above: Order Comment: Speci men Type: SWAB OF INTERNAL NOSE Ordering Facility: [facility] Address: [address] [place] [address] Performed By: #### S APCR #### [facility] CLIA [id number] [address] [place] [address] [place] Eosinophils/100 WBC (Bld) 0.9 % Normal [facility] Comment on above: Order Comment: Speci men Type: SWAB OF INTERNAL NOSE Ordering Facility: [facility] Address: [address] [place], [place] [address] Performed By: #### S APCR #### [facility] CLIA [id number] [address] [place] [address] [place] Erythrocyte distribution width (RBC) [Ratio] 13.2 % Normal 11.5-15.0 [facility] Comment on above: Order Comment: Speci men Type: SWAB OF INTERNAL NOSE Ordering Facility: [facility] Address: [address] [place], [place] [address] Performed By: #### S APCR #### [facility] CLIA [id number] [address] [place] [address] [place] Hematocrit (Bld) [Volume fraction] 47.4 % Normal 39.0-51.0 [facility] Comment on above: Order Comment: Speci men Type: SWAB OF INTERNAL NOSE Ordering Facility: [facility] Address: [address] Performed By: #### S APCR #### [facility] CLIA [id number] [address] [place] [address] [place] Hemoglobin (Bld) [Mass/Vol] 15.9 g/dL Normal 13.0-17.0 [facility] Comment on above: Order Comment: Speci men Type: SWAB OF INTERNAL NOSE Ordering Facility: [facility] Address: [address] Performed By: #### S APCR #### [facility] CLIA [id number] [address] [place] [address] [place] Immature granulocytes (Bld) [#/Vol] 0.03 10*3/uL Normal <0.10 [facility] Comment on above: Order Comment: Speci men Type: SWAB OF INTERNAL NOSE Ordering Facility: [facility] Address: [address] Performed By: #### S APCR #### [facility] CLIA [id number] [address] [place] [address] [place] Immature granulocytes/100 WBC (Bld) 0.3 % Normal [facility] Comment on above: Order Comment: Speci men Type: SWAB OF INTERNAL NOSE Ordering Facility: [facility] Address: [address] [place] [address] Performed By: #### S APCR #### [facility] CLIA [id number] [address] [place] [address] [place] Lymphocytes (Bld) [#/Vol] 2.60 10*3/uL Normal 1.00-4.00 [facility] Comment on above: Order Comment: Speci men Type: SWAB OF INTERNAL NOSE Ordering Facility: [facility] Address: [address] Performed By: #### S APCR #### [facility] CLIA [id number] [address] [place] [address] [place] Lymphocytes/100 WBC (Bld) 23.1 % Normal [facility] Comment on above: Order Comment: Speci men Type: SWAB OF INTERNAL NOSE Ordering Facility: [facility] Address: [address] [place] [address] Performed By: #### S APCR #### [facility] CLIA [id number] [address] [place] [address] [place] MCH (RBC) [Entitic mass] 32.9 pg Normal 26.0-34.0 [facility] Comment on above: Order Comment: Speci men Type: SWAB OF INTERNAL NOSE Ordering Facility: [facility] Address: [address] [place], [place] [address] Performed By: #### S APCR #### [facility] CLIA [id number] [address] [place] [address] [place] MCHC (RBC) [Mass/Vol] 33.5 g/dL Normal 30.5-36.0 [facility] Comment on above: Order Comment: Speci men Type: SWAB OF INTERNAL NOSE Ordering Facility: [facility] Address: [address] [place], [place] [address] Performed By: #### S APCR #### [facility] CLIA [id number] [address] [place] [address] [place] MCV (RBC) [Entitic vol] 97.9 fL Normal 80.0-100.0 [facility] Comment on above: Order Comment: Speci men Type: SWAB OF INTERNAL NOSE Ordering Facility: [facility] Address: [address] [place], [place] [address] Performed By: #### S APCR #### [facility] CLIA [id number] [address] [place] [address] [place] Monocytes (Bld) [#/Vol] 0.57 10*3/uL Normal <0.87 [facility] Comment on above: Order Comment: Speci men Type: SWAB OF INTERNAL NOSE Ordering Facility: [facility] Address: [address] [place] [address] Performed By: #### S APCR #### [facility] CLIA [id number] [address] [place] [address] [place] Monocytes/100 WBC (Bld) 5.1 % Normal [facility] Comment on above: Order Comment: Speci men Type: SWAB OF INTERNAL NOSE Ordering Facility: [facility] Address: [address] Performed By: #### S APCR #### [facility] CLIA [id number] [address] [place] [address] [place] Neutrophils (Bld) [#/Vol] 7.89 10*3/uL High 1.45-7.50 [facility] Comment on above: Order Comment: Speci men Type: SWAB OF INTERNAL NOSE Ordering Facility: [facility] Address: [address] Performed By: #### S APCR #### [facility] CLIA [id number] [address] [place] [address] [place] Neutrophils/100 WBC (Bld) 70.2 % Normal [facility] Comment on above: Order Comment: Speci men Type: SWAB OF INTERNAL NOSE Ordering Facility: [facility] Address: [address] [place] [address] Performed By: #### S APCR #### [facility] CLIA [id number] [address] [place] [address] [place] Nucleated RBC (Bld) [#/Vol] 10*3/uL Normal <0.01 [facility] Comment on above: Order Comment: Speci men Type: SWAB OF INTERNAL NOSE Ordering Facility: [facility] Address: [address] Performed By: #### S APCR #### [facility] CLIA [id number] [address] [place] [address] [place] Nucleated RBC/100 WBC (Bld) [Ratio] 0.0 /100 WBC Normal [facility] Comment on above: Order Comment: Speci men Type: SWAB OF INTERNAL NOSE Ordering Facility: [facility] Address: [address] [place], [place] [address] Performed By: #### S APCR #### [facility] CLIA [id number] [address] [place] [address] [place] Platelet mean volume (Bld) [Entitic vol] 9.5 fL Normal 9.0-12.7 [facility] Comment on above: Order Comment: Speci men Type: SWAB OF INTERNAL NOSE Ordering Facility: [facility] Address: [address] [place], [place] [address] Performed By: #### S APCR #### [facility] CLIA [id number] [address] [place] [address] [place] Platelets (Bld) [#/Vol] 333 10*3/uL Normal 150-400 [facility] Comment on above: Order Comment: Speci men Type: SWAB OF INTERNAL NOSE Ordering Facility: [facility] Address: [address] [place] [phone] Performed By: #### S APCR #### [facility] CLIA [id number] [address] [place] [address] [place] RBC (Bld) [#/Vol] 4.84 10*6/uL Normal 4.20-6.00 [facility] Comment on above: Order Comment: Speci men Type: SWAB OF INTERNAL NOSE Ordering Facility: [facility] Address: [address] [place] [address] Performed By: #### S APCR #### [facility] CLIA [id number] [address] [id number] [address] [place] WBC (Bld) [#/Vol] 11.24 10*3/uL High 3.70-11.00 [facility] Comment on above: Order Comment: Speci men Type: SWAB OF INTERNAL NOSE Ordering Facility: [facility] Address: [address] [place] [address] Performed By: #### S APCR #### [facility] CLIA [id number] [address] CONFIRM BLOOD TYPEon 023 ABO O Normal [facility] Comment on above: Order Comment: Speci men Type: SWAB OF INTERNAL NOSE Ordering Facility: [facility] Address: [address] [place] [address] Performed By: #### S APCR #### [facility] CLIA [id number] [address] [place] Rh Nom (Bld) Negative Normal [facility] Comment on above: Order Comment: Speci men Type: SWAB OF INTERNAL NOSE Ordering Facility: [facility] Address: [address] [place] [address] Performed By: #### S APCR #### [facility] CLIA [id number] [address] [place] ECG COMPLETEon 03-10-2023 ECG COMPLETE Ventricular Rate : 7 1 BPM Atrial Rate : 71 BPM P-R Interval : 126 ms QRS Duration : 98 ms Q-T Interval : 386 ms QTC Calculation(Bazett) : 419 ms Calculated P Lancaster : 61 degrees Calculated R Lancaster : 77 degrees Calculated T Lancaster : 64 degrees NORMAL SINUS RHYTHM NORMAL ECG Confirmed by NAA CAMPBELL MD ([id number]) on 03/18/2023 2:49:46 PM NAME : MIMI VILLASENOR PID : [id number] : 1965 Gender : Male Race : ORD : [id number] Procedure Date : Mar 10 2023 09:43:15 Edit Date : Mar 18 2023 14:49:48 Diagnosis: NORMAL SINUS RHYTHM NORMAL ECG Confirmed by NAA CAMPBELL MD ([id number]) on 03/18/2023 2:49:46 PM Test Reason : Location : 145 : LOCARD Overread By : NAA CAMPBELL MD Edited By : NAA CAMPBELL MD Referred By : ETHEL INGRAM Acquired by : Azul negrete [facility] HISTORY PHYSICALon HISTORY PHYSICAL HNO ID: [id number] Author: Ethel Ingram APRN.TECHNICAL SALES SPECIALIST Service: ? Author Type: Nurse Practitioner Type: HANDP Filed: 03/11/2023 9:04 AM Note Text: HISTORY AND PHYSICAL EXAMINATION SERVICE DATE: 03/10/2023 SERVICE TIME: 10:49 AM PRIMARY CARE PHYSICIAN: Wendy Daniel MD REASON FOR VISIT: Mimi Villasenor is a 57 year old male who is scheduled for Procedure(s) (LRB): DECOMPRESSION LAMINECTOMY LUMBAR POSTERIOR LEVEL 1 (N/A) at the request of Dr. Cliff Gomes for consultation. My final recommendation will be communicated back to the requesting physician by way of shared medical record or letter. The patient has the following: ACTIVE PROBLEM LIST Benign Prostatic Hyperplasia Current Smoker Alcohol Abuse Subjective CHIEF COMPLAINT: Lumbar radiculopathy HPI: 57 year old year old Male presents to [facility] for evaluation. Patient has been having back pain > 1 year. Reports that the pain radiates to his hip and down his leg. He has been unable to work due to the pain and has elected for surgical intervention. History reviewed. No pertinent past medical history. PAST SURGICAL HISTORY Procedure Laterality Date APPENDECTOMY INGUINAL HERNIA REPAIR HX FAMILY HISTORY Problem Relation Age of Onset Anesthesia Problems No Family History SOCIAL HISTORY: Social History Tobacco Use Smoking status: Every Day Packs/day: 0.75 Types: Cigarettes Start date: 2007 Smokeless tobacco: Never Substance Use Topics Alcohol use: Yes Comment: 4x per week 6-10 beers Drug use: Not Currently Comment: denies tx for drug/alcohol abuse in the past. Prior to Admission medications as of 03/10/23 1052 Medication Sig Last Dose Taking tamsulosin (FLOMAX) 0.4 mg Take by mouth. Yes mupirocin (BACTROBAN) 2 % ointment twice daily for 5 days. Apply 0.5 inch with cotton swab (Q-tip) to each nostril in the morning and evening for 5 days prior to and including day of surgery. No medication comments found. ALLERGIES No Known Allergies COVID VACCINATION STATUS: Not vaccinated REVIEW OF SYSTEMS: PAIN ASSESSMENT: Pain Pain Level: 6 Pain Location: Back-Lower Description: Dull, Aching Duration Amount of Time: 1 Duration Units: Months Frequency: Continuous Intervention/Comfort measure: Positioning, Medication Comments: laying flat with legs raised. General: No weight loss, malaise or fevers. Neuro: No history of TIA's, stroke, EDGE FINISHER tumor, impaired sensorium, hemiplegia, paraplegia or quadraplegia. No neurological symptoms or problems. Respiratory: No history of current cough or dyspnea, or pneumonia in the past 6 weeks. No history of respiratory/pulmonary symptoms or problems. Cardiovascular: No history of HTN requiring medication, no history of angina, CHF, [place], cardiac surgery or stents. Denies rest pain, gangrene or revascularization/amp utation for PVD. No history of cardiovascular symptoms or problems. GI: No history of GI symptoms or problems. No history of esophageal varices, recent ascites, or ETOH greater than 2 drinks per day. : No difficulty urinating, nocturia > 1 time per night or hematuria +BPH Endocrine: No history of diabetes. Has not taken steroids within the past 30 days. No history of endocrinological symptoms or problems. Hematology: No history of bleeding or clotting disorder. Pt is not taking anti-coagulation or platelet medications. No history of hematological symptoms or problems. Oncology: No history of CA metastasis, chemo within 30 days, or radiotherapy within 90 days. Has not lost 10% of body wt in 6 months. No history of oncological symptoms or problems. Psych: Anxiety Musculoskeletal: See HPI Skin: Negative for lesions, rash and itching. Objective PHYSICAL EXAM: VITALS: BP 138/81 Pulse 74 Temp (Src) 97.9 (Temporal Artery) Resp 16 Ht 6' 0 (1.83m) Wt 185 lb (83.9kg) SpO2 96% BMI 25.08 kg/(m2). General: Alert and oriented Skin: Normal color, no rash, no lesions. HEENT: EOM, pupils equal, round and reactive. Cardiovascular: Normal S1 AND S2, no rubs, murmurs or gallops. No JVD. Pulse regular. Lungs: Normal breath sounds, no wheezes or crackles. Extremities: No deformity, no edema or tenderness, no joint swelling or clubbing. Neurological: Normal cognition and motor skills. Pulses: Carotid and radial pulses normal +2. Diagnostic tests reviewed for today's visit: Lab Value Units Date High Low HB 15.9 g/dL 03/10/2023 17.0 13.0 HCT 47.4 % 03/10/2023 51.0 39.0 WBC 11.24 k/uL 03/10/2023 11.00 3.70 PLT 333 k/uL 03/10/2023 400 150 NA 141 mmol/L 03/10/2023 144 136 K 3.9 mmol/L 03/10/2023 5.1 3.7 GLUC 86 mg/dL 03/10/2023 99 74 BUN 8 mg/dL 03/10/2023 24 9 CREAT 0.62 mg/dL 03/10/2023 1.22 0.73 PTSEC 9.8 sec 03/10/2023 13.0 9.7 INR 0.9 no uni* 03/10/2023 1.3 0.9 APTT 30.0 sec 03/10/2023 32.4 23.0 ALT No results within date range. AST No results within date range. TBILI No results within date range. (more content not included)... Normal [facility] PT panel Coag (PPP)on 2022 INR Coag (PPP) [Relative time] 0.9 {INR} Normal 0.9-1.3 [facility] Comment on above: Order Comment: Speci men Type: SWAB OF INTERNAL NOSE Ordering Facility: [facility] Address: [address] [place] [phone] Result Comment: Mishel min K Antagonist (VKA) Therapeutic Range: INR 2 to 3 (Target INR of 2.5) Note: For patients treated with VKA drugs, such as warfarin, the [employer] 2012 Guideline recommends a therapeutic INR range of 2 to 3 (target INR of 2.5). This recommendation includes high-risk patients with antiphospholipid syndrome with previous arterial or venous thromboembolism, current-generation mechanical or bioprosthetic aortic heart valve replacement. Note: Patients with mechanical aortic valve replacement and additional risk factors for thromboembolic events (atrial fibrillation, previous thromboembolism, LV dysfunction, hypercoagulable conditions) or an older generation mechanical AVR (i.e., ball in-Cage) or any mechanical MVR should have a INR therapeutic range of 2.5 to 3.5 (target INR of 3). Hansel GH, et al. Chest 2012, 141:7S-47S Emmy RA, et al. [facility] 2017, 70: 252-289 Performed By: #### S APCR #### [facility] CLIA [id number] [address] [place] [address] [place] PT Coag (PPP) [Time] 9.8 s Normal 9.7-13.0 [facility] Comment on above: Order Comment: Speci men Type: SWAB OF INTERNAL NOSE Ordering Facility: [facility] Address: [address] [place] [address] Performed By: #### S APCR #### [facility] CLIA [id number] [address] [place] [address] STAPH AUREUS PCRon S. aureus and MRSA panel TYLER+probe (Nose) Normal Negative [facility] Comment on above: Order Comment: Speci men Type: SWAB OF INTERNAL NOSE Ordering Facility: [facility] Address: [address] [place] [address] Result Comment: Nega tive for Staphylococcus aureus by PCR. Negative for MRSA by PCR Performed By: #### S APCR #### [facility] CLIA [id number] [address] [place] [address] [place] TYPE AND SCREEN,30 DAYon ABO O Normal [facility] Comment on above: Order Comment: Speci men Type: SWAB OF INTERNAL NOSE Ordering Facility: [facility] Address: [address] [place] [address] Performed By: #### S APCR #### [facility] CLIA [id number] [address] [place] [address] [place] HISTORICAL AB SCR STATUS Negative Normal [facility] Comment on above: Order Comment: Speci men Type: SWAB OF INTERNAL NOSE Ordering Facility: [facility] Address: [address] [place] [address] Performed By: #### S APCR #### [facility] CLIA [id number] [address] [place] [address] [place] Rh Nom (Bld) Negative Normal [facility] Comment on above: Order Comment: Speci men Type: SWAB OF INTERNAL NOSE Ordering Facility: [facility] Address: [address] [place] [address] Performed By: #### S APCR #### [facility] CLIA [id number] [address] [place] [address] [place] aPTT PPPon 03-10-2023 aPTT Coag (PPP) [Time] 30.0 s Normal 23.0-32.4 [facility] Comment on above: Order Comment: Speci men Type: SWAB OF INTERNAL NOSE Ordering Facility: [facility] Address: [address] [place] [address] Result Comment: Froz en Plasma Aliquot Performed By: #### S APCR #### [facility] CLIA [id number] [address] [place] [address] CNPNon 03-04-2023 CNPN Telephone (NIQ) MIMI VILLASENOR ([id number]) 1965 M BMD Date Time Provider Department 03/04/23 CLIFF GOMES During your visit today, we recorded the following information about you: Denise Silva [facility] 03/04/2023 8:37 AM Signed Pt saw Dr. Gomes on 02/25 and has been waiting for a call to schedule his surgery. He is asking for a call. Nancy Calvert RN 03/05/2023 1:21 PM Signed Surgery Planning Name: Mimi Villasenor Age: [age] year old Wt: 83.1 kg (183 lb 4.8 oz) BMI: 24.86 kg/(m2) Procedure: 3.4 lami Diagnosis: (M54.16) Lumbar radiculopathy Length of Surgery:2 Expected Length of Hospital Stay:n/a Special needs: n/a PMH: No past medical history on file. PSH: No past surgical history on file. Nicotine: Tobacco Use: Types: Cigarettes HGBA1C: No results found for: HBA1C CBC:No results found for: HB, HCT, WBC, PLT Optimization Labs:none Last In-person appointment w/ Dr. Cliff Gomes:02/25/23 Please schedule PAT for [place] for the week of 03/09. Please schedule pre op consent with Dr Gomes: n/a Please schedule pre op RN education: 03/18 at 10 AM Please schedule 2 week post op Mago Todd (virtual visit) Please schedule post op MCVV with Mago Todd 6-8wks post op [place] call: RHYS Blood Thinner: No Consults: Type(s):None Provider: Conservative Therapy: baclofen, tizanidine and oxaprozin; gabapentin; oxycodone, voltaren, heat/cold, never tried injections or membrane stabilizers. Other Medication/Concerns: n/a Orders Nicotine N/A HGBA1C N/A Blood MGMT N/A Mupriocin/swab X XRAY N/A Surg Elective X [facility] X Education X Urology/CT Lumbar N/A TREK/ N/A Nancy Calvert RN 03/05/2023 1:21 PM Signed Neuro SPINE CARE COORDINATION SURGERY SCHEDULING Patient accepts surgery date of 03/[address] Gomes. Planned procedure is 3.4 lami . [facility] will be in person. [facility]quest : n/a Medications reviewed : Yes}. Meds to be stopped prior to surgery : NSAIDS and Vitamins and supplements. Additional pre op clearances needed : none. Any implanted devices : No. Transplant History No . Patient will get optimization lab work : none. Questions answered. Patient verbalizes understanding via teach back. Additional comments : lives at home with and adult children who will help with post op care Preoperative Needs Assessment Do you live alone or with someone that can help you? Lives with caregiver Will you have assistance available at home after your surgery to help with physical activities such a toileting or dressing? Always How many steps do you need to climb to get into your home? 1-10 Once in your home, how many steps do you need to climb to access your bedroom or bathroom? 11-20 Do you use a mobility aid for walking/getting around? (note, if more than one type of aid is used, select the one that is used more frequently) None Anticipated LOS > 5 days: No Significant home social issues or Current history or past history of substance abuse: No Wheelchair baseline, Homebound baseline, Significant gait instability, or History of significant falls: No Thora/lumbar fusion any level planned or 2+ level posterior cervical fusion planned: No Myelopathic or Spine tumor: No Probability of non-home discharge disposition : Low [4] Nancy Calvert RN Allergies As of Date: 03/04/2023 (No Known Allergies) Date Reviewed: 02/25/2023 Reviewed by: Leola Valiente MA - Fully Assessed Reason for Visit: Schedule Surgery [1330] Prescriptions as of 03/05/2023 - baclofen (LIORESAL) 20 mg tablet Take 20 mg by mouth daily at bedtime. - oxaprozin (DAYPRO) 600 mg tablet Take 1,200 mg by mouth once daily. - tamsulosin (FLOMAX) 0.4 mg Take by mouth. - tiZANidine (ZANAFLEX) 4 mg tablet Take 8 mg by mouth daily at bedtime. - gabapentin (NEURONTIN) 300 mg capsule Take 1 capsule by mouth three times daily for 30 days. Problem List As Of Date: 03/04/2023 (None) Encounter Status:Closed by NANCY CALVERT on 03/05/23 [facility] General Surgery Office/Clini c Noteon 03-03-2023 General Surgery Office/Clinic Note Chief Complaint colonoscopy follow up HPI Staff 13 day post operative follow up post colonoscopy with transverse colon polypectomy. History of Present Illness s/p colonoscopy done due to positive fecal occult blood; flat, ill-defined lesion in proximal transverse colon biopsied, pathology consistent with serrated adenoma; denies abd pain or blood in stools. Review of Systems ROS - Provider Constitutional: no fever, no sweats, no weight loss. Eyes: no glasses, no blurred vision, no visual loss. ENMT: no dentures, no hoarseness, no swallowing difficulties, no hearing loss, no ear infection(s), no nose bleeds. Cardiovascular: normal blood pressure, no chest pain, regular heartbeat, no heart murmur. Respiratory: no shortness of breath, no cough, no asthma, no wheezing. Gastrointestinal: no nausea, no vomiting, no diarrhea, no constipation, no blood in stool, no change in bowel habits, no abdominal pain, no hepatitis. Genitourinary: no kidney stones, no urine infection, no dysuria. Musculoskeletal: no pain, no weakness. Skin: no changing moles, no rash, no skin lumps. Neurologic: no seizures, no epilepsy, no headache. Psychiatric: no emotional or psychiatric problem. Heme/Lymph: no bleeding problems, no anemia, no blood clots, no transfusions. Allergy/Immunologic: no swollen lymph nodes/glands, no IV drug abuse. Other: Additional ROS info: Except as noted in the above Review of Systems and in the History of Present Illness, all other systems have been reviewed and are negative or noncontributory. Assessment/Plan 1. Serrated adenoma of colon (D12.6: Benign neoplasm of colon, unspecified) plan referral to Gastroenterology for removal with possible lift technique; call with problems/questions. [place] [facility] [place] Ambulatory Referral Follow-up No qualifying data available Problem List/Past Medical History Ongoing Alcohol abuse BMI 25.0-25.9,adult BPH (benign prostatic hyperplasia) Impotence Low back pain syndrome Lumbar radiculopathy Positive fecal occult blood test Serrated adenoma of colon Smoker Historical No qualifying data Procedure/Surgical History Colonoscopy (02/18/2023), excision of subcutaneous nodule left anterior thigh - local (07/26/2015), Appendectomy, Repair of left inguinal hernia, Repair of right inguinal hernia. Medications Daypro 600 mg Tab, 1200 mg= 2 tab(s), Oral, Daily Flomax 0.4 mg Cap, 0.4 mg= 1 cap(s), Oral, Daily gabapentin Allergies No Known Allergies Social History Alcohol Current, Beer, 3-5 times per week, 01/27/2023 Substance Abuse - Denies Substance Abuse, 01/27/2023 Tobacco 10 or more cigarettes (1/2 pack or more)/day in last 30 days Tobacco Use:. Never Smokeless Tobacco Use:. Cigarettes, 1 per day. Started age 40.0 Years. Yes, 01/27/2023 Family History Diabetes mellitus type 2: Brother. Malignant lymphoma: Sister. Immunizations Vaccine Date Status Comments influenza virus vaccine, inactivated - Not Given Patient Refuses SARS-CoV-2 mRNA (tozinameran 5y-11y) vac - Not Given Patient Refuses Normal [facility] Comment on above: Result Comment: Elec tronically Signed By: SHEY ORR, Gayla Li\Date and Time Signed: 03/03/23 15:15 EDT Cherrie 02-27-2023 CNPN Telephone (NIQ) MIMI VILLASENOR ([id number]) 1965 M BMD Date Time Provider Department 02/27/23 CLIFF GOMES During your visit today, we recorded the following information about you: Denise Ricardo [facility] [place] [facility] 02/27/2023 2:09 PM Signed Pt called asking for an 02/25/23 OV summary or plan of care documentation. Review of OV does not have the requested information documented. The incomplete information was not identified. Pt was only told he would be contacted by the nurse. Brittany Leander [facility] 03/11/2023 10:05 AM Signed 02/25/23 OV Note faxed to: [employer] Confirmation received. Allergies As of Date: 02/27/2023 (No Known Allergies) Date Reviewed: 02/25/2023 Reviewed by: Leola Valiente MA - Fully Assessed Reason for Visit: Incomplete Office Note [Other] Prescriptions as of 03/11/2023 - mupirocin (BACTROBAN) 2 % ointment twice daily for 5 days. Apply 0.5 inch with cotton swab (Q-tip) to each nostril in the morning and evening for 5 days prior to and including day of surgery. - tamsulosin (FLOMAX) 0.4 mg Take by mouth. Problem List As Of Date: 02/27/2023 (None) Encounter Status:Closed by BRITTANY APPLE on 03/11/23 Normal [facility] CNOVon 02-25-2023 CNOV Office Visit (SPNSMN ) MIMI VILLASENOR ([id number]) 1965 M [facility] Date Time Provider Department 02/25/23 9:10 AM CLIFF GOMES SPNSMN During your visit today, we recorded the following information about you: Pulse Respiration Blood pressure Weight 80/minute 16/minute 131/78 83.1 kg Height 1.829 m Cliff Gomes MD 02/25/2023 1:25 PM Signed SPINE SURGERY OUTPATIENT CONSULT This is an in-person visit. Staff note: Radiculopathy and claudication We discussed the minimum criteria for elective surgery: A. Imaging fits with history and examination and has surgical correctable findings B. Conservative modalities have been trialed in a meaningful way that have failed to provide relief C. The pain is significant enough to interfere with QOL and undergoing an irreversible surgical procedure makes sense to the patient from a symptom severity standpoint A and B were confirmed by me, C was confirmed by the patient. With this in mind it is reasonable to proceed with: 3.4 andi MEJIA reviewed in comprehensive detail, all questions were answered to stated satisfaction, patient elected to proceed I had a long discussion with the patient in the office today, they had many appropriate questions, all were answered to their satisfaction, no guarantees were offer nor implied in our discussion. Cliff Gomes MD SERVICE DATE: 02/25/2023 PCP: No primary care provider on file. REFERRING PROVIDER: No referring provider defined for this encounter. Consult requested for an opinion regarding the evaluation and treatment of leg pain. My final impression and recommendations will be communicated back to the requesting physician by way of the shared medical record or letter via [place] mail. SUBJECTIVE Mimi Villasenor is a 57 year old male presenting with daughter. CHIEF COMPLAINT: Left leg pain HISTORY OF PRESENT ILLNESS Mr. Villasenor is a very pleasant 57-year-old man who presents with approximately 1 year of left leg pain. He states that the pain is going on for about 1 year but flared significantly in December. The pain would go down the back of his left buttocks throughout most of his proximal left leg and down to his ankle. He did not have any significant extension into his foot. The pain would be present in most activities but could be relieved when lying supine. It was exacerbated by walking and even sitting. The pain can reach 10 out of 10 in severity. 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 He tried a number of conservative treatments, including anti-inflammatories, muscle relaxants, oral prednisone, and more recently gabapentin. He states that the gabapentin gave him the most significant relief. At present, his leg pain is down to a 3 out of 10 in severity. However, he has stopped taking his gabapentin recently due to difficulty tolerating the side effects. He denies any significant component of axial back pain and he denies any right leg pain. He denies any upper extremity complaints. PRECIPITATING EVENT: None DURATION OF SYMPTOMS: Greater Than 1 Year DERMATOMAL DISTRIBUTION: Left: L3 and L4 AMBULATORY STATUS: Independent Community Distances ANTIPLATELET OR ANTICOAGULATION STATUS: No PREVIOUS CONSERVATIVE TREATMENTS: baclofen, tizanidine and oxaprozin; gabapentin; oxycodone, voltaren, heat/cold, never tried injections or membrane stabilizers. PREVIOUS SPINAL SURGERY: None There is no problem list on file for this patient. History reviewed. No pertinent past medical history. History reviewed. No pertinent surgical history. History reviewed. No pertinent family history. Social History Tobacco Use Smoking status: Every Day Types: Cigarettes Smokeless tobacco: Never Substance Use Topics Alcohol use: Yes Comment: social ALLERGIES No Known Allergies MEDICATIONS: baclofen (LIORESAL) 20 mg tablet Take 20 mg by mouth daily at bedtime. oxaprozin (DAYPRO) 600 mg tablet Take 1,200 mg by mouth once daily. tamsulosin (FLOMAX) 0.4 mg Take by mouth. tiZANidine (ZANAFLEX) 4 mg tablet Take 8 mg by mouth daily at bedtime. gabapentin (NEURONTIN) 300 mg capsule Take 1 capsule by mouth three times daily for 30 days. REVIEW OF SYSTEMS: GENERAL: No weight loss or malaise MUSCULOSKELETAL: Negative for joint pain, swelling or muscle pain NEURO: No history of headaches, syncope, paralysis, seizures or tremors Patient Entered Questionnaires Spine Questions 01/20/2023 Pain Location: Lower back Pain Duration: 3-6 months Pain over last 6 months: Every day or nearly every day in the past 6 months Symptoms from neck/cervical spine: No Employment Status: Disabled due to back pain, permanently or temporarily Off work 1 month or more due to back/neck pain: Yes Applied for/receive disability/WC due to low back/neck pain Yes Involved in law suit/legal claim: No PROMIS Score Pe (more content not included)... Normal [facility] Pathology Noteon 02-23-2023 Pathology Note [id number] .00CD:127 [facility] Outside Colonoscopyon 2022 Outside Colonoscopy [id number] .00CD:127 [facility] Pre-Certification Formon Pre-Certification Form [id number] 1.00CD:127 [facility] Consent for Procedure/Surger yon 01-29-2023 Consent for Procedure/Surgery [id number] .00CD:127 [facility] Facesheeton 01-29-2023 Facesheet [id number] .00CD:127 [facility] CNPNon 01-28-2023 [facility] Telephone (SPNS[facility]) MIMI VILLASENOR ([id number]) 1965 M BMD Date Time Provider Department 01/28/23 NICHOLE GRANADO SPNSMN During your visit today, we recorded the following information about you: Nichole Granado APRN.TECHNICAL SALES SPECIALIST 01/28/2023 3:24 PM Signed Called and spoke with patient regarding his case. I reviewing his images and symptoms with Dr. Guy who recommends lumbar decompression. However Dr. Guy would not be able to schedule this until May. Patient requested another surgeon who could possibly get him in sooner. Also provided appointment number if patient does not hear from scheduling by end of next week. Patient grateful for call and all questions answered. Nichole Granado APRN.TECHNICAL SALES SPECIALIST Allergies As of Date: 01/28/2023 (No Known Allergies) Date Reviewed: 01/23/2023 Reviewed by: Adriana Ochoa MA - Fully Assessed Reason for Visit: Follow Up [171] Prescriptions as of 01/28/2023 - baclofen (LIORESAL) 20 mg tablet Take 20 mg by mouth daily at bedtime. - oxaprozin (DAYPRO) 600 mg tablet Take 1,200 mg by mouth once daily. - tamsulosin (FLOMAX) 0.4 mg Take by mouth. - tiZANidine (ZANAFLEX) 4 mg tablet Take 8 mg by mouth daily at bedtime. - gabapentin (NEURONTIN) 300 mg capsule Take 1 capsule by mouth three times daily for 30 days. Problem List As Of Date: 01/28/2023 (None) Encounter Status:Closed by NICHOLE GRANADO on 01/28/23 Normal [facility] Consent for Procedure/Surger yon 01-28-2023 Consent for Procedure/Surgery [id number] .00CD:127 Normal [facility] Ambulatory Visit Summaryon 0 01-27-2023 Ambulatory Visit Summary MIMI VILLASENOR :1965 Visit Date:01/27/2023 Ambulatory Visit Instructions Your Care Team Attending Physician - Gayla KAT MD Primary Care Physician - Wendy Daniel MD This Is Your Medications List gabapentin oxaprozin (Daypro 600 mg Tab) tamsulosin (Flomax 0.4 mg Cap) Procedures Performed excision of subcutaneous nodule left anterior thigh - local (07/26/2015), Appendectomy, Repair of left inguinal hernia, Repair of right inguinal hernia. Discharge Vitals Heart Rate (Peripheral) 68 Respiratory Rate 16 Blood Pressure 120/76 Height 182.88 cm Height 72 in Weight 85 kg Weight 187 lb BMI 25.41 Medications What How Much When Instructions Unchanged gabapentin as directed Unchanged oxaprozin (Daypro 600 mg Tab) 2 Tablets By Mouth Every day Unchanged tamsulosin (Flomax 0.4 mg Cap) 1 Capsules By Mouth Every day Medications and Immunizations Administered Not Given influenza virus vaccine, inactivated, Patient Refuses SARS-CoV-2 mRNA (tozinameran 5y-11y) vac, Patient Refuses Allergies No Known Allergies Problems Ongoing - Any problem that you are currently receiving treatment for. Alcohol abuse BMI 25.0-25.9,adult BPH (benign prostatic hyperplasia) Impotence Low back pain syndrome Lumbar radiculopathy Smoker Normal [facility] CNOVon 01-23-2023 CNOV Office Visit (SPNSMN ) MIMI VILLASENOR ([id number]) 1965 M [facility] Date Time Provider Department 01/23/23 1:00 PM NICHOLE GRANADO SPNSMN During your visit today, we recorded the following information about you: Pulse Respiration Blood pressure Weight 81/minute 18/minute 111/75 82.8 kg Height 1.829 m Nichole Granado APRN.TECHNICAL SALES SPECIALIST 01/23/2023 2:30 PM Signed SPINE SURGERY NEW PATIENT This is an in-person visit. PCP: No primary care provider on file. REFERRING PROVIDER: none SUBJECTIVE HISTORY OF PRESENT ILLNESS: Mimi Villasenor is a 57 year old male presenting with spouse. 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 Pain is worse when sitting too long and standing. Pain path radiates from his low back down his left buttock into his posterior thigh and into his knee. Patient states when the pain is really bad the pain radiates further down his leg and into his heel. He describes the pain as a constant burning. He also states he gets bad muscle spasms in the top of his left thigh. Patient also endorses numbness and tingling He went to see his PCP who prescribed him baclofen, tizanidine and oxaprozin; Patient states PCP also gave him 3 injections in the back which he did not know the name of the specific drugs injected but stated it was a steroid, muscle relaxer and NSAID which helped with his pain for a couple days. CMT: baclofen, tizanidine and oxaprozin; oxycodone, voltaren, heat/cold, never tried injections or membrane stabilizers Educated patient on Gabapentin and states he is willingly to try it in the meantime for pain. Provided him with chart and instructions to titrate until he finds a dose that works for his pain. Denies bowel and bladder incontinence. Having bowel issues with constipation. Occult blood test + going for colonoscopy next week. Denies trouble using hands. Denies unsteady gait and feeling unbalanced. Smoker since 1996 almost pack a day (kennedy sweets) Hx ETOH abuse drinks daily PRECIPITATING EVENT: None DURATION OF SYMPTOMS: Greater Than 1 Year Progressively worse this past month PAIN EVALUATION 01/20/2023 0816 Pain Level: 6 Pain Location: Back-Lower Description: Aching;Cramping;Numbn ess;Spasm;Stiffness;T ightness;Tingling Frequency: Intermittent Intervention/Comfort measure: Medication;Reposition ;Relaxation;Cold;Pill ow support;Positioning Pain Radiation: down posterior thigh into knee and when severe can go pass the knee into heel of foot All left side Aggravating Factors: Flexion, Rotation, Lifting, Standing, Walking Alleviating Factors: Medications, Side-lying Pain Ratio: Pain in the leg(s) is greater than in the back DERMATOMAL DISTRIBUTION: Left: L3, L4, and L5 AMBULATORY STATUS: Independent Community Distances ANTIPLATELET OR ANTICOAGULATION STATUS: No PREVIOUS CONSERVATIVE TREATMENTS: See above HPI PREVIOUS SPINAL SURGERY: None There is no problem list on file for this patient. No past medical history on file. No past surgical history on file. No family history on file. Social History Tobacco Use Smoking status: Every Day Types: Cigarettes Smokeless tobacco: Never Substance Use Topics Alcohol use: Yes Comment: social ALLERGIES No Known Allergies MEDICATIONS: baclofen (LIORESAL) 20 mg tablet Take 20 mg by mouth daily at bedtime. oxaprozin (DAYPRO) 600 mg tablet Take 1,200 mg by mouth once daily. tamsulosin (FLOMAX) 0.4 mg Take by mouth. tiZANidine (ZANAFLEX) 4 mg tablet Take 8 mg by mouth daily at bedtime. gabapentin (NEURONTIN) 300 mg capsule Take 1 capsule by mouth three times daily for 30 days. REVIEW OF SYSTEMS: PAIN ASSESSMENT: See HPI. GENERAL: Denies fever, chills malaise and weight loss. HEENT: No recent change in vision or hearing. CARDIOVASCULAR: Denies chest pain, history of A-fib, valvular disease, or pacemaker/ICD. RESPIRATORY: Denies SOB, sputum production, and hemoptysis. GI: Denies GI ulcers, inflammatory disease, or liver disease. : Denies change in frequency or urgency, kidney disease, and burning with urination. MUSCULOSKELETAL: Positive for low back pain and muscle pain SKIN: Denies rash or itching. PSYCHOLOGICAL: Denies uncontrolled depression or anxiety. NEURO: Denies CVA, seizures, headaches. ENDOCRINE: Denies diabetes, thyroid disease. HEMATOLOGY/LYMPHOLOGY : Denies cancer, bleeding or clotting disorders, anemia,and DVT's. ALLERGIC/IMMUNOLOGICA L: Denies risks for infection, or recent MRSA infections. Patient Entered Questionnaires Spine Questions 01/20/2023 Pain Location: Lower back Pain Duration: 3-6 months Pain over last 6 months: Every day or nearly every day in the past 6 months Symptoms from neck/cervic (more content not included)... Normal [facility] XR LUMBAR 4V AP/LAT/ FLEX/EX Ton 01-23-2023 XR LUMBAR 4V AP/LAT/ FLEX/EXT * * *Final Report* * * DATE OF EXAM: Jan 23 2023 11:43AM JIX [id number] - XR LUMBAR 4V AP/LAT/ FLEX/EXT / PROCEDURE REASON: Lumbar spondylosis * * * * Physician Interpretation * * * * HISTORY: Lumbar spondylosis TECHNOLOGIST PROVIDED HISTORY (if applicable): 1 1/2 YEARS LEFT SIDED LBP RADIATING DOWN THE LEFT LEG WITH NUMBNESS AND TINGLING. TECHNIQUE: XR LUMBAR 4V AP/LAT/ FLEX/EXT RESULT: 4 views of the lumbar spine. Counting reference: Lumbosacral junction. For the purposes of this report, L5-S1 is considered the most caudal well formed disc space. [place] rightward curvature centered at L2 to. The lordosis is mildly straightened. There is mild disc space narrowing and minimal anterolisthesis at L4-5. Similar narrowing at L3-4 without subluxation. Small endplate osteophytes at L1-2 and L2-3. Advanced facet arthropathy L3-4 caudal. Between flexion and extension there is no demonstration of instability. Mild degenerative changes of the LEFT sacroiliac joint. Mild degenerative changes at the hips. IMPRESSION: Multilevel degenerative changes without radiographically demonstrated instability. Travel Registered Nurse Oncology: [facility] Transcribe Date/Time: Jan 23 2023 11:54A Dictated by : DORIS GIPSON MD This examination was interpreted and the report reviewed and electronically signed by: DORIS GIPSON MD on Jan 23 2023 11:55AM EST [id number] Normal [facility] XR LUMBAR MOTION 4V AP/LAT/ FLEX/EXTon 01-23-2023 [facility] OCC BLD IMMUNO SCREENon 12-25 OCCULT BLOOD Positive Abnormal NEGATIVE [facility] Comment on above: Performed By: #### O BSN ####[facility] [id number] [place], [place] [address]Og. Osei Argueta US SINGLE QUAD RT UPPERon US SINGLE QUAD RT UPPER EXAMINATION: US SINGLE QUAD RT UPPER HISTORY: Alcohol dependence COMPARISON: No relevant comparison available. TECHNIQUE: Transabdominal evaluation of the right upper quadrant. FINDINGS: LIVER: Mild fatty infiltration. PORTAL VEIN: Duplex Doppler demonstrates normal hepatopetal flow pattern with flow velocity averaging 24 cm/s. GALLBLADDER: No visible gallstones, wall thickening, or pericholecystic free fluid. Negative sonographic Toney's sign. BILIARY: No abnormal dilation or stones. Common bile duct diameter is within normal limits. PANCREASE: No visible mass, abnormal atrophy, or duct dilation. KIDNEY: No hydronephrosis. No visible mass or stones. Size: 12.0 x 5.7 x 6.1 cm IMPRESSION: 1. Mild fatty infiltration of liver. No appreciable evidence of cirrhosis. 2. Otherwise unremarkable right upper quadrant ultrasound. Electronically authenticated by: MAURICE GARCIA Date: 2023-01-15 17:25 Normal [facility] VC VENOUS REFLUX SAQIB LMTon 0 01-15-2023 VC VENOUS REFLUX SAQIB LMT Patient: MIMI VILLASENOR Exam Date: 01/15/2023 : 1965 Gender:M Ordering : DR WENDY DANIEL . Admission #: [id number] Family : Order #: [id number] CLICK HERE TO VIEW EXAM RADIOLOGY REPORT PROCEDURE: VEIN CENTER ULTRASOUND VENOUS REFLUX BILATERAL LIMTED COMPARISON: None. INDICATIONS: Pain co-occurrent and due to varicose veins of bilateral legs I83.813 TECHNIQUE: Duplex imaging of the lower extremity to assess the deep and superficial venous system for the presence of deep or superficial venous incompetence and to document the location and severity of disease. The study includes evaluation of the great saphenous vein (GSV), anterior accessory saphenous vein (AASV) and small saphenous vein (SSV). Patient scanned in reverse Trendelenburg and standing. FINDINGS: RIGHT LOWER EXTREMITY: Saphenofemoral Junction Reflux: YesNo 9.1mm sec GSV: Diam (mm) Reflux/ Time (sec) Proximal Thigh 3.6 No Mid Thigh 2.8 Yes 0.5 Distal Thigh 3.1 Yes 0.5 Prox Calf 2.3 No Mid Calf 1.9 Yes 0.6 Saphenopopliteal Junction Reflux: 2.3mm Yes 0.5 SSV: Proximal Calf 1.8 Yes 0.3 Mid Calf 2.7 No AASV: Proximal Thigh 2.1 Yes 0.7 Mid Thigh Distal Thigh Thrombi: No acute or chronic thrombus visualized Compressibility: Normal Flow: Normal Preforator: Dist/med calf 4mm with 0s reflux. Tech Note: No incompetent varicose veins visualized. LEFT LOWER EXTREMITY: Saphenofemoral Junction Reflux: Yes 6.0 mm 0.5 sec GSV: Diam (mm) Reflux/Time (sec) Proximal Thigh 3.6 Yes 0.6 Mid Thigh 3.7 Yes 0.6 Distal Thigh 3.2 No Prox Calf 3.1 Yes 0.6 Mid Calf 2.3 No Saphenopopliteal Junction Relux: 2.4 mm No SSV: Proximal Calf 2.2 No Mid Calf 2.3 No AASV: Proximal Thigh 4.0 No Mid Thigh 2.3 Yes 0.7 Distal Thigh Thrombi: No acute or chronic thrombus visualized Compressibility: Normal Flow: Normal Professor Of Environmental Engineering: Dist/med calf 3.3mm with 0s reflux. Tech Note: Patent varicose vein mid/med calf 1.7mm with 0.4s reflux. Patent varicose vein mid/med thigh 2.3mm with 0.7s reflux. CONCLUSION: 1. No significant dilation of the superficial veins or clinically significant venous reflux. Dictated by: Maurice Garcia M.D. on 01/15/2023 at 14:05 Approved by: Maurice Garcia M.D. on 01/15/2023 at 14:07 Normal [facility] AMYLASEon 01-14-2023 Amylase [Catalytic activity/Vol] 58 U/L Normal 25-[address] [facility] Comment on above: Performed By: #### L IPA, LIPID, TERRY, CMP ####[facility] [id number] [place] [address]Dr. Osei Argueta CBC AUTO DIFFon 01-14-2023 BASO # 0.1 103/ul Normal 0.0-0.1 [facility] Comment on above: Performed By: #### C BC #### [facility] [address] [place] [address] [address] Osei Argueta Basophils/100 WBC (Bld) 0.5 % Normal 0.2-2.[address] [facility] Comment on above: Performed By: #### C BC #### [facility] [address] [address] [address] Osei Argueta EO # 0.4 103/ul Normal 0.0-0.7 [facility] Comment on above: Performed By: #### C BC #### [facility] [address] [address] [address] Osei Argueta Eosinophils/100 WBC (Bld) 3.5 % Normal 0.9-7.0 [facility] Comment on above: Performed By: #### C BC #### [facility] [address] [place] [address] Dr. Osei Argueta Erythrocyte distribution width (RBC) [Ratio] 12.8 % Normal 11.0-15.0 [facility] Comment on above: Performed By: #### C BC #### [facility] [address] [place] [address] Dr. Osei Argueta Hematocrit (Bld) [Volume fraction] 48.3 % Normal 42.0-54.0 [facility] Comment on above: Performed By: #### C BC #### [facility] [address] [place] [address] Dr. Osei Argueta Hemoglobin (Bld) [Mass/Vol] 16.7 g/dL Normal 14.0-18.0 [facility] Comment on above: Performed By: #### C BC #### [facility] [address] [place] [address] Dr. Osei Argueta IG # 0.03 10e3/ul Normal 0.00-0.03 [facility] Comment on above: Performed By: #### C BC #### [facility] [address] [place] [address] Dr. Osei Argueta IG % 0.3 % Normal 0.0-0.5 [facility] Comment on above: Performed By: #### C BC #### [facility] [address] [place] [address] Dr. Osei Argueta LYMPH # 2.9 103/ul Normal 1.2-3.8 [facility] Comment on above: Performed By: #### C BC #### [facility] [address] [place] [address] Dr. Osei Argueta Lymphocytes/100 WBC (Bld) 27.4 % Normal 20.5-60.0 [facility] Comment on above: Performed By: #### C BC #### [facility] [address] [place] [address] Dr. Osei Argueta MANUAL DIFF REQ NO Normal [facility] Comment on above: Performed By: #### C BC #### [facility] [address] [address] [address] Osei Argueta MCH (RBC) [Entitic mass] 33.3 pg Normal 25.9-34.0 [facility] Comment on above: Performed By: #### C BC #### [facility] [address] [address] [address] Osei Argueta MCHC (RBC) [Mass/Vol] 34.6 g/dL Normal 29.9-35.2 [facility] Comment on above: Performed By: #### C BC #### [facility] [address] [address] [address] Osei Argueta MCV (RBC) [Entitic vol] 96.2 fL Critically high 80.0-94.0 [facility] Comment on above: Performed By: #### C BC #### [facility] [address] [place] [address] Dr. Osei Argueta MONO # 0.6 103/ul Normal 0.3-0.8 [facility] Comment on above: Performed By: #### C BC #### [facility] [address] [address] [address] Osei Argueta Monocytes/100 WBC (Bld) 5.5 % Normal 1.7-12.0 [facility] Comment on above: Performed By: #### C BC #### [facility] [address] [place] [address] Dr. Osei Argueta NEUT # 6.6 103/ul Critically high 1.4-6.5 [facility] Comment on above: Performed By: #### C BC #### [facility] [address] [place] [address] Dr. Osei Argueta Neutrophils/100 WBC (Bld) 62.8 % Normal 43.0-75.[address] [facility] Comment on above: Performed By: #### C BC #### [facility] [address] [place] [address] Dr. Osei Argueta Platelet mean volume (Bld) [Entitic vol] 9.0 fL Critically low 9.5-13.[address] [facility] Comment on above: Performed By: #### C BC #### [facility] [address] [address] [address] Osei Argueta PLT 299 103/ul Normal 150-450 [facility] Comment on above: Performed By: #### C BC #### [facility] [address] [address] [address] Osei Argueta RBC 5.02 106/ul Normal 4.70-6.10 [facility] Comment on above: Performed By: #### C BC #### [facility] [address] [address] [address] Osei Argueta WBC 10.4 103/ul Normal 4.0-11.0 [facility] Comment on above: Performed By: #### C BC #### [facility] [address] [address] [address] Osei Argueta IRONon 01-14-2023 Iron [Mass/Vol] 68.0 ug/dL Normal 65.0-175.0 [facility] Comment on above: Performed By: #### I JHONATHAN #### [facility] [address] [address] [address] Osei Argueta LIPASEon 01-14-2023 Lipase [Catalytic activity/Vol] 102.0 U/L Normal 73.0-393.0 [facility] Comment on above: Performed By: #### L IPA, LIPID, TERRY, CMP ####[facility] [id number] [place] [id number] Argueta LIPID PROFILEon 01-14-2023 CHOL-HDL RATIO NORM SEE BELOW Normal [facility] Comment on above: Result Comment: 3.3 - 4.4 LOW RISK 4.4 - 7.1 AVERAGE RISK 7.1 - 11.0 MODERATE RISK >11.0 HIGH RISK Performed By: #### L IPA, LIPID, TERRY, CMP ####[facility] [id number] [place] [id number] Argueta Cholesterol [Mass/Vol] 162 mg/dL Normal <=[address] [facility] Comment on above: Performed By: #### L IPA, LIPID, TERRY, CMP ####[facility] [id number] [place] [id number]. Osei Argueta Cholesterol in HDL [Mass/Vol] 44 mg/dL Normal 40-[address] [facility] Comment on above: Performed By: #### L IPA, LIPID, TERRY, CMP ####[facility] [id number] [place] [id number]. Osei Argueta Cholesterol in LDL [Mass/Vol] 111.2 mg/dL Normal [facility] Comment on above: Performed By: #### L IPA, LIPID, TERRY, CMP ####[facility] [address] [place] [id number]. Osei Argueta Cholesterol.total/Ch olesterol in HDL [Mass ratio] 3.7 {ratio} Normal [facility] Comment on above: Performed By: #### L IPA, LIPID, TERRY, CMP ####[facility] [address] [place] [address]Dr. Osei Argueta HDL NORMAL > or = 60 mg/dl - LO W CARDIOVASCULAR RISK <40 mg/dl - HIGH CARDIOVASCULAR RISK Normal [facility] Comment on above: Performed By: #### L IPA, LIPID, TERRY, CMP ####[facility] [address] [place] [id number]. Osei Argueta LDL CALC NORMAL SEE BELOW Normal [facility] Comment on above: Result Comment: <100 mg/dl OPTIMAL 100 - 129 mg/dl NEAR OR ABOVE OPTIMAL 130 - 159 mg/dl BORDERLINE HIGH 160 - 189 mg/dl HIGH >190 mg/dl VERY HIGH Performed By: #### L IPA, LIPID, TERRY, CMP ####[facility] [address] [place] [id number]. Osei Argueta Triglyceride [Mass/Vol] 34 mg/dL Normal <=[address] [facility] Comment on above: Performed By: #### L IPA, LIPID, TERRY, CMP ####[facility] [address] [place] [id number]. Osei Argueta VLDL CALC 6.8 mg/dL Normal [facility] Comment on above: Performed By: #### L IPA, LIPID, TERRY, CMP ####[facility] [address] [place] [address]Dr. Osei Argueta PROF 14(COMP METB)on 023 Albumin [Mass/Vol] 3.9 g/dL Normal 3.4-5.0 [facility] Comment on above: Performed By: #### L IPA, LIPID, TERRY, CMP ####[facility] [address] [place] [address]Dr. Osei Argueta Albumin/Globulin [Mass ratio] 1.0 {ratio} Normal [facility] Comment on above: Performed By: #### L IPA, LIPID, TERRY, CMP ####[facility] [address] [place] [address]Dr. Osei Argueta ALP [Catalytic activity/Vol] 82 U/L Normal 46-116 [facility] Comment on above: Performed By: #### L IPA, LIPID, TERRY, CMP ####[facility] [address] [place], [place] [address]Dr. Osei Argueta ALT [Catalytic activity/Vol] 23 U/L Normal 16-63 [facility] Comment on above: Performed By: #### L IPA, LIPID, TERRY, CMP ####[facility] [address] [place], [place] [address]Dr. Osei Argueta Anion gap [Moles/Vol] 8.2 mmol/L Normal [facility] Comment on above: Performed By: #### L IPA, LIPID, TERRY, CMP ####[facility] [address] [place], [place] [address]Dr. Osei Argueta AST [Catalytic activity/Vol] 19 U/L Normal 15-37 [facility] Comment on above: Performed By: #### L IPA, LIPID, TERRY, CMP ####[facility] [address] [place], [place] [address]Dr. Osei Argueta Bilirubin [Mass/Vol] 0.3 mg/dL Normal 0.2-1.0 [facility] Comment on above: Performed By: #### L IPA, LIPID, TERRY, CMP ####[facility] [address] [place], [place] [address]Dr. Osei Argueta Calcium [Mass/Vol] 9.5 mg/dL Normal 8.5-10.1 [facility] Comment on above: Performed By: #### L IPA, LIPID, TERRY, CMP ####[facility] [address] [place] [address]Dr. Osei Argueta Chloride [Moles/Vol] 107 mmol/L Normal 98-[address] [facility] Comment on above: Performed By: #### L IPA, LIPID, TERRY, CMP ####[facility] [address] [place] [address]Dr. Osei Argueta CO2 [Moles/Vol] 29.1 mmol/L Normal 21.0-32.0 [facility] Comment on above: Performed By: #### L IPA, LIPID, TERRY, CMP ####[facility] [address] [place] [address]Dr. Osei Argueta Creatinine [Mass/Vol] 0.82 mg/dL Normal 0.70-1.[address] [facility] Comment on above: Performed By: #### L IPA, LIPID, TERRY, CMP ####[facility] [address] [place], [place] [address]Dr. Osei Argueta EGFR-AF BULGARIAN >60 Normal >=60 [facility] Comment on above: Performed By: #### L IPA, LIPID, TERRY, CMP ####[facility] [address] [place] [address]Dr. Osei Argueta EGFR-NON AF BULGARIAN >60 Normal >=[address] [facility] Comment on above: Performed By: #### L IPA, LIPID, TERRY, CMP ####[facility] [address] [place] [address]Dr. Osei Argueta Globulin (S) [Mass/Vol] 3.9 g/dL Normal [facility] Comment on above: Performed By: #### L IPA, LIPID, TERRY, CMP ####[facility] [address] [place] [address]Dr. Osei Argueta Glucose [Mass/Vol] 94 mg/dL Normal 74-106 [facility] Comment on above: Performed By: #### L IPA, LIPID, TERRY, CMP ####[facility] [address] [place] [address]Dr. Osei Argueta Potassium [Moles/Vol] 5.3 mmol/L Critically high 3.5-5.1 [facility] Comment on above: Performed By: #### L IPA, LIPID, TERRY, CMP ####[facility] [address] [place] [address]Dr. Osei Argueta Protein [Mass/Vol] 7.8 g/dL Normal 6.4-8.2 [facility] Comment on above: Performed By: #### L IPA, LIPID, TERRY, CMP ####[facility] [address] [place] [address]Dr. Osei Argueta Sodium [Moles/Vol] 139 mmol/L Normal 136-145 [facility] Comment on above: Performed By: #### L IPA, LIPID, TERRY, CMP ####[facility] [address] [place] [address]Dr. Osei Argueta Urea nitrogen [Mass/Vol] 16.0 mg/dL Normal 7.0-18.[address] [facility] Comment on above: Performed By: #### L IPA, LIPID, TERRY, CMP ####[facility] [address] [place] [address]Dr. Osei Argueta Urea nitrogen/Creatinine [Mass ratio] 19.5 mg/mg Normal [facility] Comment on above: Performed By: #### L IPA, LIPID, TERRY, CMP ####[facility] [address] [place] [address]Dr. Osei Argueta MRI LSPINE WO CONon 01-08-20 MRI LSPINE WO CON EXAMINATION: MRI LSPINE WO CON HISTORY: Lumbar radiculopathy ; acute lumbar and left leg pain, numbness and tingling in left leg COMPARISON: None TECHNIQUE: A variety of imaging planes and parameters were utilized for visualization of suspected pathology. FINDINGS: For the purposes of numbering, sagittal T2 image # 7 extends from the T11-12 vertebral body superiorly to the S2-3 level inferiorly. PARASPINAL AREA: Fusiform dilation of the distal aorta, 3.3 cm in diameter. BONES: Minimal grade 1 anterior listhesis of L4 on 5. CORD/CAUDA EQUINA: Normal caliber, contour, and signal intensity. DISC LEVELS: 12-L1: No significant disc/facet abnormality, spinal stenosis, or foraminal stenosis. L1-L2: Mild foramen narrowing bilaterally without significant central canal narrowing. Mild diffuse disc bulging without significant disc height reduction. L2-L3: Mild central canal and moderate-marked foramen narrowing bilaterally. Mild diffuse disc bulging without disc at reduction. Marked degenerative facet arthropathy bilaterally. L3-L4: Marked central canal and bilateral foramen narrowing. Moderate diffuse disc bulging with mild disc height reduction. Marked degenerative facet hypertrophy, right greater than left. L4-L5: Mild central canal. Marked right, moderate left foramen narrowing. Mild diffuse disc bulging with mild disc at reduction. Mild grade 1 anterior listhesis of L4 on 5. Marked degenerative facet hypertrophy, right greater than left. L5-S1: No significant central canal narrowing. Moderate right, mild left foramen narrowing. No significant disc bulging or height reduction. Mild degenerative facet arthropathy bilaterally. IMPRESSION: 1. L3-4 marked central canal narrowing. 2. Multilevel moderate marked foramen narrowing secondary to degenerative disc disease and facet arthropathy. Electronically authenticated by: MAURICE GARCIA Date: 2023-01-08 07:47 Normal [address] [facility] XR HIP LT 2 3V W PELVISon XR HIP LT 2 3V W PELVIS EXAM: AP of the pelvis and left hip HISTORY: . Pain of left hip joint . COMPARISON: None. TECHNIQUE: 3 views FINDINGS: Bony pelvis is intact. No fracture or bony destructive process is noted. There is narrowing of the left hip joint. Small spurs are noted involving the femoral head and the acetabulum. Surrounding soft tissues are unremarkable. IMPRESSION: 1. Negative AP of the pelvis. 2. Mild arthritic changes of the left hip. Electronically authenticated by: DAYANARA ALVAREZ Date: 2022-10-09 09:58 Normal [facility] XR LSPINE MIN 4 VIEWSon 09-23 XR LSPINE MIN 4 VIEWS EXAMINATION: XR LSPINE MIN 4 VIEWS HISTORY: Pain of left hip joint COMPARISON: No relevant comparison available. FINDINGS: BONES: No acute fracture or dislocation. Mild to moderate degenerative spondylosis and facet osteoarthropathy DISC SPACES: Normal. No significant disc height narrowing, subluxation, or endplate abnormality. PARASPINOUS: Negative. No paraspinous abnormality is seen. OTHER: Negative. IMPRESSION: Fekc-bw-lsuuyaey degenerative changes Electronically authenticated by: DAYANARA LUX Date: 2022-10-09 13:26 Normal [address] [facility] PROF 14(COMP METB)on 022 Albumin [Mass/Vol] 3.9 g/dL Normal 3.4-5.0 [facility] Comment on above: Performed By: #### C MP #### [facility] [address] [place] [address] Dr. Osei Argueta Albumin/Globulin [Mass ratio] 1.0 {ratio} Normal [facility] Comment on above: Performed By: #### C MP #### [facility] [address] [place] [address] Dr. Osei Argueta ALP [Catalytic activity/Vol] 93 U/L Normal 46-116 [facility] Comment on above: Performed By: #### C MP #### [facility] [address] [place] [address] Dr. Osei Argueta ALT [Catalytic activity/Vol] 25 U/L Normal 16-63 [facility] Comment on above: Performed By: #### C MP #### [facility] [address] [place] [address] Dr. Osei Argueta Anion gap [Moles/Vol] 11.3 mmol/L Normal [facility] Comment on above: Performed By: #### C MP #### [facility] [address] [place] [address] Dr. Osei Argueta AST [Catalytic activity/Vol] 29 U/L Normal 15-37 [facility] Comment on above: Performed By: #### C MP #### [facility] [address] [place] [address] Dr. Osei Argueta Bilirubin [Mass/Vol] 0.4 mg/dL Normal 0.2-1.0 [facility] Comment on above: Performed By: #### C MP #### [facility] [address] [place] [address] Dr. Osei Argueta Calcium [Mass/Vol] 9.1 mg/dL Normal 8.5-10.1 [facility] Comment on above: Performed By: #### C MP #### [facility] [address] [place] [address] Dr. Osei Argueta Chloride [Moles/Vol] 107 mmol/L Normal 98-107 [facility] Comment on above: Performed By: #### C MP #### [facility] [address] [place] [address] [address] Osei Argueta CO2 [Moles/Vol] 27.0 mmol/L Normal 21.0-32.0 [facility] Comment on above: Performed By: #### C MP #### [facility] [address] [place] [address] Dr. Osei Argueta Creatinine [Mass/Vol] 0.78 mg/dL Normal 0.70-1.30 [facility] Comment on above: Performed By: #### C MP #### [facility] [address] [place] [address] Dr. Osei Argueta EGFR-AF BULGARIAN >60 Normal >=60 [facility] Comment on above: Performed By: #### C MP #### [facility] [address] [place] [address] Dr. Osei Argueta EGFR-NON AF BULGARIAN >60 Normal >=60 [facility] Comment on above: Performed By: #### C MP #### [facility] [address] [place] [address] Dr. Osei Argueta Globulin (S) [Mass/Vol] 3.9 g/dL Normal [facility] Comment on above: Performed By: #### C MP #### [facility] [address] [place] [address] Dr. Osei Argueta Glucose [Mass/Vol] 99 mg/dL Normal 74-106 [facility] Comment on above: Performed By: #### C MP #### [facility] [address] [place] [address] Dr. Osei Argueta Potassium [Moles/Vol] 4.3 mmol/L Normal 3.5-5.[address] [facility] Comment on above: Result Comment: SPEC IMEN SLIGHTLY HEMOLIZED Performed By: #### C MP #### [facility] [address] [place] [address] [address] Osei Argueta Protein [Mass/Vol] 7.8 g/dL Normal 6.4-8.2 [facility] Comment on above: Performed By: #### C MP #### [facility] [address] [place] [address] Dr. Osei Argueta Sodium [Moles/Vol] 141 mmol/L Normal 136-145 [facility] Comment on above: Performed By: #### C MP #### [facility] [address] [place] [address] Dr. Osei Argueta Urea nitrogen [Mass/Vol] 14.0 mg/dL Normal 7.0-18.0 [facility] Comment on above: Performed By: #### C MP #### [facility] [address] [place] [address] Dr. Osei Argueta Urea nitrogen/Creatinine [Mass ratio] 17.9 mg/mg Normal [facility] Comment on above: Performed By: #### C MP #### [facility] [address] [place] [address] Dr. Osei Argueta CBC AUTO DIFFon 06-20-2022 BASO # 0.0 103/ul Normal 0.0-0.1 [facility] Comment on above: Performed By: #### C BC #### [facility] [address] [place] [address] Dr. Osei Argueta Basophils/100 WBC (Bld) 0.4 % Normal 0.2-2.0 [facility] Comment on above: Performed By: #### C BC #### [facility] [address] [place] [address] Dr. Osei Argueta EO # 0.2 103/ul Normal 0.0-0.7 [facility] Comment on above: Performed By: #### C BC #### [facility] [address] [place] [address] Dr. Osei Argueta Eosinophils/100 WBC (Bld) 1.6 % Normal 0.9-7.0 [facility] Comment on above: Performed By: #### C BC #### [facility] [address] [place] [address] [address] Osei Argueta Erythrocyte distribution width (RBC) [Ratio] 13.2 % Normal 11.0-15.0 [facility] Comment on above: Performed By: #### C BC #### [facility] [address] [place] [address] Dr. Osei Argueta Hematocrit (Bld) [Volume fraction] 52.2 % Normal 42.0-54.0 [facility] Comment on above: Performed By: #### C BC #### [facility] [address] [place] [address] Dr. Osei Argueta Hemoglobin (Bld) [Mass/Vol] 18.0 g/dL Normal 14.0-18.0 [facility] Comment on above: Performed By: #### C BC #### [facility] [address] [place] [address] Dr. Osei Argueta IG # 0.02 10e3/ul Normal 0.00-0.03 [facility] Comment on above: Performed By: #### C BC #### [facility] [address] [place] [address] Dr. Osei Argueta IG % 0.2 % Normal 0.0-0.5 [facility] Comment on above: Performed By: #### C BC #### [facility] [address] [place] [address] Dr. Osei Argueta LYMPH # 2.4 103/ul Normal 1.2-3.8 [facility] Comment on above: Performed By: #### C BC #### [facility] [address] [place] [address] Dr. Osei Argueta Lymphocytes/100 WBC (Bld) 24.7 % Normal 20.5-60.0 [facility] Comment on above: Performed By: #### C BC #### [facility] [address] [place] [address] Dr. Osei Argueta MANUAL DIFF REQ NO Normal [facility] Comment on above: Performed By: #### C BC #### [facility] [address] [place] [address] Dr. Oesi Argueta MCH (RBC) [Entitic mass] 33.1 pg Normal 25.9-34.[address] [facility] Comment on above: Performed By: #### C BC #### [facility] [address] [place] [address] Dr. Osei Argueta MCHC (RBC) [Mass/Vol] 34.5 g/dL Normal 29.9-35.[address] [facility] Comment on above: Performed By: #### C BC #### [facility] [address] [place] [address] Dr. Osei Argueta MCV (RBC) [Entitic vol] 96.1 fL Critically high 80.0-94.0 [facility] Comment on above: Performed By: #### C BC #### [facility] [address] [place] [address] Dr. Osei Argueta MONO # 0.6 103/ul Normal 0.3-0.8 [facility] Comment on above: Performed By: #### C BC #### [facility] [address] [place] [address] Dr. Osei Argueta Monocytes/100 WBC (Bld) 6.1 % Normal 1.7-12.0 [facility] Comment on above: Performed By: #### C BC #### [facility] [address] [place] [address] Dr. Osei Argueta NEUT # 6.4 103/ul Normal 1.4-6.[address] [facility] Comment on above: Performed By: #### C BC #### [facility] [address] [place] [address] Dr. Osei Argueta Neutrophils/100 WBC (Bld) 67.0 % Normal 43.0-75.[address] [facility] Comment on above: Performed By: #### C BC #### [facility] [address] [place] [address] Dr. Osei Argueta Platelet mean volume (Bld) [Entitic vol] 9.1 fL Critically low 9.5-13.[address] [facility] Comment on above: Performed By: #### C BC #### [facility] [address] [place] [address] [address] Osei Argueta PLT 324 103/ul Normal 150-450 [facility] Comment on above: Performed By: #### C BC #### [facility] [address] [place] [address] [address] Osei Argueta RBC 5.43 106/ul Normal 4.70-6.10 [facility] Comment on above: Performed By: #### C BC #### [facility] [address] [place] [address] Dr. Osei Argueta WBC 9.5 103/ul Normal 4.0-11.0 [facility] Comment on above: Performed By: #### C BC #### [facility] [address] [place] [address] Dr. Osei Argueta GLYCOHEMOGLOBIN A1Con 2021 ADA RECOMMENDATION SEE BELOW Normal [facility] Comment on above: Result Comment: ADA RECOMMENDED LIMIT 4.0 - 6.0 ADA THERAPEUTIC TARGET < 7.0 ACTION SUGGESTED > 7.0 Performed By: #### A 1C #### [facility] [address] [place] [address] Dr. Osei Argueta Glucose [Mass/Vol] 108 mg/dL Normal [facility] Comment on above: Performed By: #### A 1C #### [facility] [address] [place] [address] Dr. Osei Argueta HbA1c (Bld) [Mass fraction] 5.4 % Normal 4.5-6.2 [facility] Comment on above: Performed By: #### A 1C #### [facility] [address] [place] [address] Dr. Osei Argueta LIPID PROFILEon 06-20-2022 CHOL-HDL RATIO NORM SEE BELOW Normal [facility] Comment on above: Result Comment: 3.3 - 4.4 LOW RISK 4.4 - 7.1 AVERAGE RISK 7.1 - 11.0 MODERATE RISK >11.0 HIGH RISK Performed By: #### L IPID #### [facility] [address] [place] [address] Dr. Osei Argueta Cholesterol [Mass/Vol] 161 mg/dL Normal <=200 [facility] Comment on above: Performed By: #### L IPID #### [facility] [address] [address] [address] Osei Argueta Cholesterol in HDL [Mass/Vol] 49 mg/dL Normal 40-60 [facility] Comment on above: Performed By: #### L IPID #### [facility] [address] [address] [address] Osei Argueta Cholesterol in LDL [Mass/Vol] 104.0 mg/dL Normal [facility] Comment on above: Performed By: #### L IPID #### [facility] [address] [address] [address] Osei Argueta Cholesterol.total/Ch olesterol in HDL [Mass ratio] 3.3 {ratio} Normal [facility] Comment on above: Performed By: #### L IPID #### [facility] [address] [address] [address] Osei Argueta HDL NORMAL > or = 60 mg/dl - LO W CARDIOVASCULAR RISK <40 mg/dl - HIGH CARDIOVASCULAR RISK Normal [facility] Comment on above: Performed By: #### L IPID #### [facility] [address] [address] [address] Osei Argueta LDL CALC NORMAL SEE BELOW Normal [facility] Comment on above: Result Comment: <100 mg/dl OPTIMAL 100 - 129 mg/dl NEAR OR ABOVE OPTIMAL 130 - 159 mg/dl BORDERLINE HIGH 160 - 189 mg/dl HIGH >190 mg/dl VERY HIGH Performed By: #### L IPID #### [facility] [address] [address] [address] Osei Argueta Triglyceride [Mass/Vol] 40 mg/dL Normal <=[address] [facility] Comment on above: Performed By: #### L IPID #### [facility] [address] [place] [address] Dr. Osei Argueta VLDL CALC 8.0 mg/dL Normal [facility] Comment on above: Performed By: #### L IPID #### [facility] [address] [address] [address] Osei Argueta OCC BLD IMMUNO SCREENon 05-24 OCCULT BLOOD Negative Normal NEGATIVE [facility] Comment on above: Performed By: #### O BSCRN #### [facility] [address] [address] [address] Osei Argueta Vital Signs Date Time Vital Sign Value Performing Clinician Faci lity 07-22-2023 13:24-0400 Diastolic blood pressure 76 mm[Hg] MD Wendy Daniel Work Phone: [facility] 07-22-2023 13:24-0400 Heart rate 73 /min MD Wendy Daniel Work Phone: [facility] 07-22-2023 13:24-0400 Respiratory rate 16 /min MD Wendy Daniel Work Phone: [facility] 07-22-2023 13:24-0400 SaO2% (BldA) [Mass fraction] 98 % MD Wendy Daniel Work Phone: [facility] 07-22-2023 13:24-0400 Systolic blood pressure 105 mm[Hg] MD Wendy Daniel Work Phone: [facility] 07-22-2023 11:15-0400 Body height 182.88 cm MD Wendy Daniel Work Phone: [facility] 07-22-2023 11:15-0400 Body temperature 98.1 [degF] MD Wendy Daniel Work Phone: [facility] 07-22-2023 11:15-0400 Body weight 83.91 kg MD Wendy Daniel Work Phone: [facility] 02-25-2023 08:56-0400 Body height 182.9 cm Cliff Gomes MD Work Phone: [facility] 02-25-2023 08:56-0400 Body weight 83.14 kg Cliff Gomes MD Work Phone: [facility] 02-25-2023 08:56-0400 Diastolic blood pressure 78 mm[Hg] Cliff Gomes MD Work Phone: [facility] 02-25-2023 08:56-0400 Heart rate 80 /min Cliff Gomes MD Work Phone: [facility] 02-25-2023 08:56-0400 Respiratory rate 16 /min Cliff Gomes MD Work Phone: [facility] 02-25-2023 08:56-0400 SaO2% (BldA) [Mass fraction] 97 % Cliff Gomes MD Work Phone: [facility] 02-25-2023 08:56-0400 Systolic blood pressure 131 mm[Hg] Cliff Gomes MD Work Phone: [facility] 01-27-2023 13:09-0500 Blood Pressure Location Gayla NILL [facility] [place] 01-27-2023 13:09-0500 Diastolic blood pressure 76 mm[Hg] Gayla NILL [facility] [place] 01-27-2023 13:09-0500 Heart rate 68 /min Gayla NILL [facility] [place] 01-27-2023 13:09-0500 Respiratory rate 16 /min Gayla NILL [facility] [place] 01-27-2023 13:09-0500 Systolic blood pressure 120 mm[Hg] Gayla NILL [facility] 01-23-2023 12:19-0500 Body height 182.9 cm Nichole Granado SOLAR ENERGY TECHNICIAN.TECHNICAL SALES SPECIALIST Work Phone: [facility] 01-23-2023 12:19-0500 Body weight 82.78 kg Nichole Granado SOLAR ENERGY TECHNICIAN.TECHNICAL SALES SPECIALIST Work Phone: [facility] 01-23-2023 12:19-0500 Diastolic blood pressure 75 mm[Hg] Nichole Granado SOLAR ENERGY TECHNICIAN.TECHNICAL SALES SPECIALIST Work Phone: [facility] 01-23-2023 12:19-0500 Heart rate 81 /min Nichole Granado SOLAR ENERGY TECHNICIAN.TECHNICAL SALES SPECIALIST Work Phone: [facility] 01-23-2023 12:19-0500 Respiratory rate 18 /min Nichole Granado SOLAR ENERGY TECHNICIAN.TECHNICAL SALES SPECIALIST Work Phone: [facility] 01-23-2023 12:19-0500 Systolic blood pressure 111 mm[Hg] Nichole Granado SOLAR ENERGY TECHNICIAN.TECHNICAL SALES SPECIALIST Work Phone: [facility] Encounters Encounter Date Encounter Type Care Provider Facility Start: 01-01-2024 ambulatory Wendy Daniel MD Facility:[facility] Start: 07-22-2023 End: 07-22-2023 ambulatory Wendy Daniel Facility:[facility] Start: 07-22-2023 End: 07-22-2023 Admission to same day surgery center MD Wendy Daniel Work Phone: [facility] Work Phone: Start: 07-22-2023 End: 07-22-2023 ambulatory MD Wendy Daniel Work Phone: [facility] Work Phone: Start: 06-29-2023 ambulatory Keon Bonus PA-C Work Phone: [facility] Comment on above: Return to work Start: 06-26-2023 Telephone encounter Cliff wheatley MD Work Phone: [facility] Comment on above: Return To Work Lette r Start: 06-26-2023 End: 06-26-2023 ambulatory Keon Bonus PA-C Work Phone: [facility] Comment on above: History of lumbar la minectomy (Primary Dx) Start: 06-26-2023 End: 06-26-2023 Telemedicine consultation with patient Keon Christopherus PA-C Work Phone: [facility] Start: 06-01-2023 Telephone encounter Keon ramires PA-C Work Phone: Neurology Comment on above: Restriction form Start: 05-28-2023 End: 05-28-2023 ambulatory Keon Christopherus PA-C Work Phone: Sp[facility] Surgery Comment on above: S/P lumbar laminecto my (Primary Dx) Start: 05-28-2023 Patient encounter procedure Keon Todd PA-C Work Phone: Sp[facility] Surgery Comment on above: Therapy Referral Start: 05-28-2023 End: 05-28-2023 ambulatory WENDY M JOSE ENRIQUESofiya Facility:[facility] Start: 05-28-2023 End: 05-28-2023 Telemedicine consultation with patient Keon Todd PA-C Work Phone: [facility] Start: 05-07-2023 Telephone encounter Cliff wheatley MD Work Phone: Neurology Comment on above: Patient Question Start: 04-27-2023 Telephone encounter Cliff wheatley MD Work Phone: Neurology Comment on above: Short Term Disabilit y paperwork Start: 04-24-2023 Telephone encounter Cliff wheatley MD Work Phone: Neurology Comment on above: Patient Question Start: 04-10-2023 End: 04-10-2023 ambulatory CLIFF GOMES Facility:[facility] Start: 03-27-2023 End: 03-27-2023 ambulatory CLIFF GOMES Facility:[facility] Start: 03-18-2023 End: 03-18-2023 Nursing evaluation of patient and report Nancy Calvert RN [facility] Comment on above: Educational circumst ance (Primary Dx) Start: 03-18-2023 End: 03-19-2023 ambulatory WENDY DANIEL Facility:[facility] Start: 03-10-2023 Encounter for other preprocedural examination WENDY DANIEL [facility] Start: 03-10-2023 End: 03-11-2023 ambulatory WENDY M HOSofiya Facility:[facility] Start: 03-09-2023 End: 03-09-2023 ambulatory CLIFF GOMES Facility:[facility] Start: 03-05-2023 ambulatory Cliff Gomes MD Work Phone: [facility] Start: 03-05-2023 Patient encounter status Tj Gomes MD Work Phone: [facility] Start: 03-03-2023 End: 03-04-2023 ambulatory Gayla KAT Facility: [facility] Start: 03-03-2023 End: 03-03-2023 Patient encounter procedure Gayla KAT [facility] Start: 02-25-2023 End: 02-26-2023 ambulatory CLIFF GOMES Facility:[facility] Start: 02-25-2023 End: 02-25-2023 Patient encounter procedure Cliff Gomes MD Work Phone: [facility] Comment on above: Lumbar radiculopathy (Primary Dx) Start: 02-18-2023 End: 02-19-[address] GAYLA KAT . Facility: Start: 01-28-2023 Telephone encounter Nichole grey SOLAR ENERGY TECHNICIAN.TECHNICAL SALES SPECIALIST Work Phone: [facility] Comment on above: Follow Up Start: 01-27-2023 End: 01-28-2023 ambulatory Gayla KAT Facility: [facility] Start: 01-27-2023 End: 01-27-2023 Patient encounter procedure Gayla KAT [facility] Start: 01-23-2023 End: 01-24-2023 ambulatory NICHOLE GRANADO Facility:[facility] Start: 01-23-2023 End: 01-23-2023 Patient encounter procedure Nichole Granado SOLAR ENERGY TECHNICIAN.TECHNICAL SALES SPECIALIST Work Phone: [facility] Comment on above: Lumbar radiculopathy (Primary Dx); Chronic left-sided low back pain with left-sided sciatica; Spinal stenosis, lumbar region, without neurogenic claudication; Spondylolisthesis of lumbar region Start: 01-23-2023 End: 01-23-2023 Subsequent hospital visit by physician Chioma Sorto J1-4 Work Phone: Radiology Comment on above: Lumbar spondylosis [ M47.816] Start: 01-15-2023 End: 01-16-[address] WENDY DANIEL . Facility:[facility] Start: 01-15-2023 End: 01-16-[address] WENDY DANIEL . Facility:[facility] Start: 01-14-2023 End: 01-15-[address] WENDY DANIEL . Facility:[facility] Start: 01-07-2023 End: 01-08-[address] WENDY DANIEL . Facility:[facility] Start: 10-09-2022 End: 10-10-[address] WENDY DANIEL . Facility:[facility] Start: 07-17-2022 Encounter for genera l adult medical examination without abnormal findings DR WENDY DANIEL . [facility] Start: 07-14-2022 End: 07-15-[address] WENDY DANIEL . Facility:[facility] Start: 07-14-2022 End: 07-15-2022 Encounter for general adult medical examination without abnormal findings DR WENDY DANIEL . Facility:[facility] Start: 06-20-2022 End: 06-21-[address] WENDY DANIEL . Facility: Procedures Date Procedure Procedure Detail Performing Clinician Start: 07-22-2023 Colonoscopy MD Wendy Daniel Work Phone: Start: 03-10-2023 Antibody screen WENDY DANIEL Comment on above: Order Comment: Speci men Type: SWAB OF INTERNAL NOSE Ordering Facility: [facility] Address: [address] [place] [address] Performed By: #### S APCR #### [facility] CLIA [id number] [address] [place] [address] [place] Start: 02-18-2023 Colonoscopy Gayla LOVE Start: 01-23-2023 Radex spine lumbosac ral minimum 4 views Nichole Granado SOLAR ENERGY TECHNICIAN.TECHNICAL SALES SPECIALIST Work Phone: Start: 06-20-[address] ERICA DANIEL . Comment on above: Performed By: #### P SASC #### [facility] [address] [address] [address] Osei Argueta Start: 07-26-2015 excision of subcutan eous nodule left anterior thigh - local Gayla KAT Appendectomy Gayla KAT Repair of left ingui nal hernia Gayla KAT Repair of right ingu inal hernia Gayla KAT Plan of Treatment Date Care Activity Detail Author Start: 06-20-2027 PROSTATE CANCER SCREENING DISCUSSION PROSTATE CANCER SCREENING DISCUSSION [facility] Start: 03-10-2026 DIABETES SCREEN DIABETES SCREEN [facility] Start: 07-24-2023 Influenza vaccination [facility] Start: 07-22-2023 [facility] Start: 03-27-2023 End: 09-01-2023 [facility] PCR [facility] PCR Lab Routine Lumbar radiculopathy Pre-op testing Expected: 03/27/2023, Expires: 09/01/2023 [facility] Work Phone: Comment on above: Expected: 03/27/2023 , Expires: 09/01/2023 Start: 11-23-2022 DEPRESSION ASSESSMENT DEPRESSION ASS ESSMENT [facility] Start: 07-24-2022 Influenza vaccination INFLUENZA (#1) [facility] Start: 2015 SHINGRIX VACCINE (1 of 2) SHINGRIX VACCINE (1 of 2) [facility] Start: 2010 COLOGUARD (FIT-DNA) COLOGUARD (FIT-D NA) [facility] Start: 2010 Colonoscopy COLONOSCOPY [facility] Start: 2010 COLORECTAL CANCER SCREENING COLORECTAL CANCER SCREENING [facility] Start: [address] COLONOGRAPHY [facility] Start: 2010 DIABETES SCREEN DIABETES SCREEN [facility] Start: 2010 FECAL OCCULT BLOOD FECAL OCCULT BLOO D [facility] Start: 2010 SIGMOIDOSCOPY SIGMOIDOSCOPY [facility] Start: 2000 LIPID SCREEN LIPID SCREEN [facility] Start: 1984 Urine microalbumin profile DTAP,TDAP,TD (1 - Tdap) [facility] Start: 1983 HEPATITIS C SCREENING HEPATITIS C SC REENING [facility] Start: 1983 HIV SCREENING HIV SCREENING [facility] Start: 1971 PNEUMOCOCCAL (1 - PCV) PNEUMOCOCCAL (1 - PCV) [facility] Start: 1965 COVID-19 VACCINE (#1) COVID-19 VACCI NE (#1) [facility] Start: 1965 HEPATITIS B (1 of 3 - 3-dose series) HEPATITIS B (1 of 3 - 3-dose series) [facility] Patient Education Colon Polypectomy (DC) [facility] Work Phone: [facility] Immunizations Immunization Date Immunization Notes Care Provider Fa cililaurie NEGATED: Highlighted row has not occurred!01-27-2023 influenza virus vaccine, unspecified formulation Gayla KAT [facility] [place] NEGATED: Highlighted row has not occurred!01-27-2023 SARS-CoV-2 mRNA (tozinameran 5y-11y) vaccine Gayla KAT [facility] [place] Payers Date Payer Category Payer Self-pay 2021 Unknown [employer] PPO OOS [id number] 2021-Present [phone] [address] [place] [address] PPO [id number] 2013 Medicaid MEDICAID [facility] MEDICAID [id number] 2013-Present [phone] [address] [place] [address] Medicaid [id number] 1965 Unknown [id number] 1965 Unknown [id number] 1965 Unknown [id number] 1965 Unknown [id number] 1965 Unknown [id number] 1965 Unknown [id number] 1965 Unknown [id number] 1965 Unknown [id number] 1965 Unknown [id number] [id number] 1965 Unknown [id number] 1965 Unknown [id number] 1959 Unknown [id number] Unknown [facility] [id number] Unknown [id number] Social History Date Type Detail Facility Start: 11-23-2007 End: 03-10-2023 Tobacco smoking status NHIS Smokes tobacco daily [facility] Work Phone: Start: 11-23-2007 History of tobacco use Cigarette Smo ker [facility] Work Phone: Start: 01-23-2023 End: 03-10-2023 Tobacco use and exposure Smokeless tobacco non-user [facility] Work Phone: Start: 01-23-2023 End: 03-10-2023 Alcohol intake Current drinker of alcohol (finding) [facility] Start: 01-23-2023 Alcohol Comment social [facility] Start: 1965 Sex Assigned At Not on file [facility] Start: 01-13-2023 End: 03-03-2023 Exposure to SARS-CoV-2 (event) Not sure [facility] Start: 01-27-2023 Tobacco smoking status Heavy t obacco smoker (finding) [facility] Tobacco smoking status Never [facility] Start: 03-10-2023 End: 04-10-2023 Sex Assigned At Male Reji Holloway [facility] Start: 03-10-2023 End: 04-10-2023 Cigarettes smoked current (pack per day) - Reported 0.8 [facility] Start: 03-10-2023 Alcohol Comment 4x per week 6-10 bee rs [facility] Start: 01-20-2023 Gender identity Identifies as male gender (finding) [facility] Start: 07-22-2023 Tobacco smoking stat us NHIS Smoker (finding) [facility] Start: 1965 Sex Assigned At Male F [facility] Goals Date Patient Goal Desired Activity /State Functional Status Date Assessment Result Facility 01-27-2023 Functional Status N/A [facility] 01-16-2023 to 07-22-2023 Note Date & Type Note Facility 07-22-2023 History and physical note Note Date/Time July 22, 2023 12:09pm [facility] [address] [place] [address] Gastroenterology H&P Signed Patient: Mimi Villasenro MR#: [id number] : 1965 Acct:[id number] Age/Sex: 58 / M Adm Date: 3 Loc: Room: Type: [facility] Attending Dr: Essie Toscano MD Copies to: MD Essie Shields MD~ Date of Service: 07/22/2023 HISTORY & PHYSICAL: Patient's history with special attention to the cardiovascular, pulmonary systems and the current problem was reviewed with the patient immediately prior to the procedure. Present medications and doses reviewed in the EMR. Allergies and pertinent laboratory tests were also reviewedat this time in the EMR. The physical examination, as below, was then performed. Indication, assessment and HPI: 58-year-old man with colonic polyp found on recent colonoscopy but not removed here for colonoscopy with polypectomy Family history of GI malignancy? No PHYSICAL EXAMINATION Mouth and Pharynx : Moist mucus membranes, normal dentition Cardiac: Regular rate, regular rhythm Pulmonary: Clear to auscultation bilaterally, no wheezing Neurological: Alert and oriented x3, no focal deficits noted Abdomen: Abdomen soft, non-tender REVIEW OF SYSTEMS Constitutional: Denies malaise, fevers Cardiovascular: Denies chest pain, palpitations Respiratory: Denies shortness of breath, wheezing Gastrointestinal: Per HPI Genitourinary: Denies dysuria, polyuria Musculoskeletal: Denies joint swelling, joint stiffness Neurological: Denies numbness, tingling Integumentary: Denies rashes, skin lesions Endocrine: Denies fatigue, weight loss Written informed consent obtained from the patient. Risks (including but not limited to perforation, infection, bloating, bleeding, need for emergent surgeryand loss of life), benefits and alternatives explained and questions answered. The patient verbalized understanding. Based on history patient is an appropriate candidate for the procedure. Essie Toscano M.D. Documented By: Essie Toscano MD 07/22/231207 Signed By: <Electronically signed by Essie Toscano MD> 07/22/23 1208 [facility] Work Phone: 1(802) 974-701808-30-2023 [facility] Miscellaneous Notes* Telephone Encounter - Brittany Apple - 06/26/2023 3:52 PM EDT Return to work letter faxed to: Akhil [employer]el[employer] And to: Attn: Tierra Confirmation received for both. documented in [facility]-2023 NoteHNO ID: [id number] Author: Keon Todd PA-C Service: ? Author Type: Physician Panel Flow Machine Operator Type: Progress Notes Filed: 06/26/2023 12:11 PM Note Text: SPINE SURGERY FOLLOW UP This is a virtual visit using Xcalar video visit. It required patient-provider interaction for the medical decision making as documented below. I have communicated my name and active licensure. The patient's identity and physical location were verified at the time of this visit. Either the patient or their legal client service representative has been informed of the risks and benefits of -- and alternatives to -- treatment through a remote evaluation and consents to proceed with the evaluation remotely. SERVICE DATE: 06/26/2023 SURGERY DATE: 03/27/23 L3-4 laminectomy Seen virtually for RTW. Started PT and feels like he's doing very well. Increasing activity without any new pain. Pain remains resolved. Very happy with his results. Patient Entered Questionnaires Spine Questions 01/20/2023 03/17/2023 Pain Location: Lower back Lower back Pain Duration: 3-6 months - Pain over last 6 months: Every day or nearly every day in the past 6 months - Symptoms from neck/cervical spine: No No Employment Status: Disabled due to back pain, permanently or temporarily - Off work 1 month or more due to back/neck pain: Yes - Applied for/receive disability/WC due to low back/neck pain Yes - Involved in law suit/legal claim: No - PROMIS Score Percentiles Physical Health 01/20/2023 03/17/2023 Physical Function Percentile 14 18* Sleep Percentile 10 34 Fatigue Percentile 10 24* Pain Interference Percentile 4 12 PROMIS SOCIAL ROLE SCORE 01/20/2023 03/17/2023 Social Role Satisfaction Percentile 3 31 PROMIS Global Health Scale 01/20/2023 Physical Health Percentile 7 Mental Health Percentile 5 Percentiles provide an indication of how the patient's score ranks in relation to the general population. Higher percentile rankings indicate better function/quality of life. 50th percentile is the average of the general population and indicates half of respondents had a worse score. Depression Screening: PHQ-9 01/20/2023 03/17/2023 Score 12 5 PHQ-9 Self-harm Question 01/20/2023 03/17/2023 Thoughts that you would be better off , or of hurting yourself in some way 0 0 PHQ-9 Self-Harm (Item 9) response options: 0 Not at all 1 Several days 2 More than half the days 3 Nearly every day PHQ-9 Levels: 0-4 No to mild depression 5-9 Mild depression 10-14 Moderate depression 15-19 Moderately severe depression 20-27 Severe depression PHYSICAL EXAM: There were no vitals taken for this visit. Virtual visit Able to sit, stand and walk without assistance. DATA REVIEW [facility] records independently reviewed ASSESSMENT/PLAN (Z98.890) History of lumbar laminectomy (primary encounter diagnosis) Seen virtually. Overall doing very well and very happy with his results. Working with PT and back to full activity without any issues. Ok to RTW 06/30/23. He will start with light duty and 4 weeks later resume full duty. Letter provided. Follow up PRN. The majority of the visit was spent counseling and/or coordinating care for the patient. Total face to face time was 20 minutes. SIGNATURE: Keon Todd PA-C PATIENT NAME: Mimi Villasenor DATE: June 26, 2023 TIME: 11:58 AM PAGER:[facility]08-04-2023 History of Present illness Narrative* Keon Todd PA-C - 06/26/2023 11:58 AM EDT SPINE SURGERY FOLLOW UP This is a virtual visit using Xcalar video visit. It required patient-provider interaction for themedical decision making as documented below. I have communicated my name and active licensure. The patient's identity and physical location wereverified at the time of this visit. Either the patient or their legal client service representative has been informed of the risks and benefits of -- and alternatives to -- treatment through a remote evaluation andconsents to proceed with the evaluation remotely. SERVICE DATE: 06/26/2023 SURGERY DATE: 03/27/23 L3-4 laminectomy Seen virtually for RTW. Started PT and feels like he's doing very well. Increasing activity without any new pain. Pain remains resolved. Very happy with his results. Patient Entered Questionnaires Spine Questions 01/20/2023 03/17/2023 Pain Location: Lower back Lower back Pain Duration: 3-6 months - Pain over last 6 months: Every day or nearly every day in the past 6 months - Symptoms from neck/cervical spine: No No Employment Status: Disabled due to back pain, permanently or temporarily - Off work 1 month or more due to back/neck pain: Yes - Applied for/receive disability/WC due to low back/neck pain Yes - Involved in law suit/legal claim: No - PROMIS Score Percentiles Physical Health 01/20/2023 03/17/2023 Physical Function Percentile 14 18* Sleep Percentile 10 34 Fatigue Percentile 10 24* Pain Interference Percentile 4 12 PROMIS SOCIAL ROLE SCORE 01/20/2023 03/17/2023 Social Role Satisfaction Percentile 3 31 PROMIS Global Health Scale 01/20/2023 Physical Health Percentile 7 Mental Health Percentile 5 Percentiles provide an indication of how the patient's score ranks in relation to the general population. Higher percentile rankings indicate better function/quality of life. 50th percentile is the average of the general population and indicates half of respondents had a worse score. Depression Screening: PHQ-9 01/20/2023 03/17/2023 Score 12 5 PHQ-9 Self-harm Question 01/20/2023 03/17/2023 Thoughts that you would be better off , or of hurting yourself in some way 0 0 PHQ-9 Self-Harm (Item 9) response options: 0 Not at all 1 Several days 2 More than half the days 3 Nearly every day PHQ-9 Levels: 0-4 No to mild depression 5-9 Mild depression 10-14 Moderate depression 15-19 Moderately severe depression 20-27 Severe depression PHYSICAL EXAM: There were no vitals taken for this visit. Virtual visit Able to sit, stand and walk without assistance. DATA REVIEW [facility] records independently reviewed ASSESSMENT/PLAN (Z98.890) History of lumbar laminectomy (primary encounter diagnosis) Seen virtually. Overall doing very well and very happy with his results. Working with PT and back to full activity without any issues. Ok to RTW 06/30/23. He will start with light duty and 4 weeks later resume full duty. Letter provided. Follow up PRN. The majority of the visit was spent counseling and/or coordinating care for the patient. Total faceto face time was 20 minutes. SIGNATURE: Keon Todd PA-C PATIENT NAME: Mimi Villasenor DATE: June 26, 2023 TIME: 11:58 AM PAGER: documented in [facility]07-19-2023 Miscellaneous Notes* Telephone Encounter - Brittany Apple - 06/10/2023 1:16 PM EDT Restrictions form completed, signed and faxed to: [employer] [facility] Confirmation received, copy scanned to chart. * Telephone Encounter - Peace Toney LPN - 06/01/2023 4:03 PM EDT Received, Reviewed [facility] forms and need signed by Dr. Gomes Placed on BIRGIT Brittany's inbasket, to get signed and fax/scan to patient chart Leave dates: 03/27/23-TBD Per Keon Todd note 05/28/23: He has a physical job. We discussed plan of starting PT and in 4 weeks we will evaluate for RTW. Follow up scheduled for 06/26/23. Peace Guzman LPN * Telephone Encounter - Claudia Hung - 06/01/2023 3:06 PM EDT received Restrictions form- given to PRIMARY TEACHING ASSISTANT team to process. documented in this encounterK[facility]23 NoteHNO ID: [id number] Author: Keon Todd PA-C Service: ? Author Type: Physician Panel Flow Machine Operator Type: Progress Notes Filed: 05/28/2023 8:49 AM Note Text: SPINE SURGERY FOLLOW UP This is a virtual visit using Xcalar video visit. It required patient-provider interaction for the medical decision making as documented below. I have communicated my name and active licensure. The patient's identity and physical location were verified at the time of this visit. Either the patient or their legal client service representative has been informed of the risks and benefits of -- and alternatives to -- treatment through a remote evaluation and consents to proceed with the evaluation remotely. SERVICE DATE: 05/28/2023 SURGERY DATE: 03/27/23 L3-4 laminectomy Seen virtually for 8 week post operative appointment. Since surgery he has noticed resolution of his leg pain. He is currently having no pain and happy with his results. No new symptoms Using nothing for pain relief Incision fully healed without any complications. Patient Entered Questionnaires Spine Questions 01/20/2023 03/17/2023 Pain Location: Lower back Lower back Pain Duration: 3-6 months - Pain over last 6 months: Every day or nearly every day in the past 6 months - Symptoms from neck/cervical spine: No No Employment Status: Disabled due to back pain, permanently or temporarily - Off work 1 month or more due to back/neck pain: Yes - Applied for/receive disability/WC due to low back/neck pain Yes - Involved in law suit/legal claim: No - PROMIS Score Percentiles Physical Health 01/20/2023 03/17/2023 Physical Function Percentile 14 18* Sleep Percentile 10 34 Fatigue Percentile 10 24* Pain Interference Percentile 4 12 PROMIS SOCIAL ROLE SCORE 01/20/2023 03/17/2023 Social Role Satisfaction Percentile 3 31 PROMIS Global Health Scale 01/20/2023 Physical Health Percentile 7 Mental Health Percentile 5 Percentiles provide an indication of how the patient's score ranks in relation to the general population. Higher percentile rankings indicate better function/quality of life. 50th percentile is the average of the general population and indicates half of respondents had a worse score. Depression Screening: PHQ-9 01/20/2023 03/17/2023 Score 12 5 PHQ-9 Self-harm Question 01/20/2023 03/17/2023 Thoughts that you would be better off , or of hurting yourself in some way 0 0 PHQ-9 Self-Harm (Item 9) response options: 0 Not at all 1 Several days 2 More than half the days 3 Nearly every day PHQ-9 Levels: 0-4 No to mild depression 5-9 Mild depression 10-14 Moderate depression 15-19 Moderately severe depression 20-27 Severe depression PHYSICAL EXAM: There were no vitals taken for this visit. Virtual visit Able to sit, stand and walk without assistance DATA REVIEW [facility] records independently reviewed ASSESSMENT/PLAN (Z98.890) S/P lumbar laminectomy (primary encounter diagnosis) Seen virtually for 8 week post operative appointment. Leg pain remains resolved. He is very happy with his results. Incision fully healed without any complications. Discussed normal recovery goals and expectations. Reviewed plan of slowly increasing activity and lifting restrictions. Referral placed for PT. He will MC message the fax to have it sent to. Continue to use muscle relaxant and OTC for pain control. He has a physical job. We discussed plan of starting PT and in 4 weeks we will evaluate for RTW. Follow up scheduled for 06/26/23. The majority of the visit was spent counseling and/or coordinating care for the patient. Total face to face time was 30 minutes. SIGNATURE: Keon Todd PA-C PATIENT NAME: Mimi Villasenor DATE: May 28, 2023 TIME: 8:33 AM PAGER:[facility]07-06-2023 History of Present illness Narrative* Keon Todd PA-C - 05/28/2023 8:33 AM EDT SPINE SURGERY FOLLOW UP This is a virtual visit using Xcalar video visit. It required patient-provider interaction for themedical decision making as documented below. I have communicated my name and active licensure. The patient's identity and physical location wereverified at the time of this visit. Either the patient or their legal client service representative has been informed of the risks and benefits of -- and alternatives to -- treatment through a remote evaluation andconsents to proceed with the evaluation remotely. SERVICE DATE: 05/28/2023 SURGERY DATE: 03/27/23 L3-4 laminectomy Seen virtually for 8 week post operative appointment. Since surgery he has noticed resolution of his leg pain. He is currently having no pain and happy with his results. No new symptoms Using nothing for pain relief Incision fully healed without any complications. Patient Entered Questionnaires Spine Questions 01/20/2023 03/17/2023 Pain Location: Lower back Lower back Pain Duration: 3-6 months - Pain over last 6 months: Every day or nearly every day in the past 6 months - Symptoms from neck/cervical spine: No No Employment Status: Disabled due to back pain, permanently or temporarily - Off work 1 month or more due to back/neck pain: Yes - Applied for/receive disability/WC due to low back/neck pain Yes - Involved in law suit/legal claim: No - PROMIS Score Percentiles Physical Health 01/20/2023 03/17/2023 Physical Function Percentile 14 18* Sleep Percentile 10 34 Fatigue Percentile 10 24* Pain Interference Percentile 4 12 PROMIS SOCIAL ROLE SCORE 01/20/2023 03/17/2023 Social Role Satisfaction Percentile 3 31 PROMIS Global Health Scale 01/20/2023 Physical Health Percentile 7 Mental Health Percentile 5 Percentiles provide an indication of how the patient's score ranks in relation to the general population. Higher percentile rankings indicate better function/quality of life. 50th percentile is the average of the general population and indicates half of respondents had a worse score. Depression Screening: PHQ-9 01/20/2023 03/17/2023 Score 12 5 PHQ-9 Self-harm Question 01/20/2023 03/17/2023 Thoughts that you would be better off , or of hurting yourself in some way 0 0 PHQ-9 Self-Harm (Item 9) response options: 0 Not at all 1 Several days 2 More than half the days 3 Nearly every day PHQ-9 Levels: 0-4 No to mild depression 5-9 Mild depression 10-14 Moderate depression 15-19 Moderately severe depression 20-27 Severe depression PHYSICAL EXAM: There were no vitals taken for this visit. Virtual visit Able to sit, stand and walk without assistance DATA REVIEW [facility] records independently reviewed ASSESSMENT/PLAN (Z98.890) S/P lumbar laminectomy (primary encounter diagnosis) Seen virtually for 8 week post operative appointment. Leg pain remains resolved. He is very happy with his results. Incision fully healed without any complications. Discussed normal recovery goals and expectations. Reviewed plan of slowly increasing activity and lifting restrictions. Referral placed for PT. He will MC message the fax to have it sent to. Continue to use muscle relaxant and OTC for pain control. He has a physical job. We discussed plan of starting PT and in 4 weeks we will evaluate for RTW. Follow up scheduled for 06/26/23. The majority of the visit was spent counseling and/or coordinating care for the patient. Total faceto face time was 30 minutes. 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 All post op restrictions have been reviewed at length * Telephone Encounter - Jessy Livingston Asst - 05/07/2023 12:22 PM EDT Patient is calling to know if he can start doing some yard work like riding his formulation chemist anythinglight he can do around the home call back [phone] documented in this encounterK[facility]06-05-2023 Miscellaneous Notes* Telephone Encounter - Peace Toney LPN - 04/27/2023 11:39 AM EDT STD forms stating more information requested. Printed Operative report, discharge summary and VV note from ALISHA Shannon. Gave to BIRGIT Jiménez to fax back to number provided. * Telephone Encounter - Yaya Coronel RN - 04/27/2023 10:13 AM EDT Neuro SPINE CARE COORDINATION QUICK NOTE noted * Telephone Encounter - Jessy Livingston Asst - 04/27/2023 9:26 AM EDT Received 3 pages for patient Short Term Disability from [employer] requesting more information (medical) gave to VLAD's Zuleima/Dia for review documented in this encounterK[facility]tering [facility]06-02-2023 Miscellaneous Notes* Telephone Encounter - Brittany Tabor [facility] [place] [facility] - 04/24/2023 2:53 PM EDT Revised forms faxed to: [employer] Confirmation received. Electronically signed by Brittany Tabor [facility] at 04/24/2023 2:54 PM EDT * Telephone Encounter - Peace Toney LPN - 04/24/2023 11:59 AM EDT Forms reviewed and revised. Per Yaya RTW will be determined at next office visit 05/28/23. Gave forms to Johanna to have provider review and sign and fax back. * Telephone Encounter - Yaya Coronel RN - 04/24/2023 11:10 AM EDT Neuro SPINE CARE COORDINATION POST OP FOLLOW UP SURGERY/PROCEDURE: L3-L4 decompressive lumbar laminectomy, medial facetectomy, foraminotomy.( 03/27/23) No LE symptoms- minimal LBP only - he continues to ice. He will scheduled his colonoscopy Pt is requesting updated [employer] forms to confirm his work date. His HR is stating that his RTW is today No RTW date has been decided Next follow up on 05-28-23 Form updated with PRIMARY TEACHING ASSISTANT- this will be refaxed. Yaya Coronel RN * Telephone Encounter - Claudia Clemente Tar Chaser - 04/24/2023 10:26 AM EDT pt had surgery on 03/27. Pt scheduled for colonoscopy scheduled, pt would like to discuss with RN if its okay to have colonoscopy post -op. Call back: [phone] documented in this encounterK[facility]05-19-2023 NoteHNO ID: [id number] Author: Keon Todd PA-C Service: ? Author Type: Physician Panel Flow Machine Operator Type: Progress Notes Filed: 04/10/2023 7:51 AM Note Text: SPINE SURGERY FOLLOW UP This is a virtual visit using Xcalar video visit. It required patient-provider interaction for the medical decision making as documented below. I have communicated my name and active licensure. The patient's identity and physical location were verified at the time of this visit. Either the patient or their legal client service representative has been informed of the risks and benefits of -- and alternatives to -- treatment through a remote evaluation and consents to proceed with the evaluation remotely. SERVICE DATE: 04/10/2023 SURGERY DATE: 03/27/23 L3-4 laminectomy Seen virtually for 2 week post operative appointment. Since surgery he has noticed resolution of his leg pain. He has some mild aching in the low back but this is tolerable. No new symptoms. Walking daily and overall feels like he is doing well. Using Tylenol for pain relief. Stopped using the narcotics at 3 days. Incision is healing well. Some slight swelling but no drainage, erythema or dehiscence. Patient Entered Questionnaires Spine Questions 01/20/2023 03/17/2023 Pain Location: Lower back Lower back Pain Duration: 3-6 months - Pain over last 6 months: Every day or nearly every day in the past 6 months - Symptoms from neck/cervical spine: No No Employment Status: Disabled due to back pain, permanently or temporarily - Off work 1 month or more due to back/neck pain: Yes - Applied for/receive disability/WC due to low back/neck pain Yes - Involved in law suit/legal claim: No - PROMIS Score Percentiles Physical Health 01/20/2023 03/17/2023 Physical Function Percentile 14 18* Sleep Percentile 10 34 Fatigue Percentile 10 24* Pain Interference Percentile 4 12 PROMIS SOCIAL ROLE SCORE 01/20/2023 03/17/2023 Social Role Satisfaction Percentile 3 31 PROMIS Global Health Scale 01/20/2023 Physical Health Percentile 7 Mental Health Percentile 5 Percentiles provide an indication of how the patient's score ranks in relation to the general population. Higher percentile rankings indicate better function/quality of life. 50th percentile is the average of the general population and indicates half of respondents had a worse score. Depression Screening: PHQ-9 01/20/2023 03/17/2023 Score 12 5 PHQ-9 Self-harm Question 01/20/2023 03/17/2023 Thoughts that you would be better off , or of hurting yourself in some way 0 0 PHQ-9 Self-Harm (Item 9) response options: 0 Not at all 1 Several days 2 More than half the days 3 Nearly every day PHQ-9 Levels: 0-4 No to mild depression 5-9 Mild depression 10-14 Moderate depression 15-19 Moderately severe depression 20-27 Severe depression PHYSICAL EXAM: There were no vitals taken for this visit. Virtual visit Able to sit, stand and walk without assistance DATA REVIEW [facility] records independently reviewed ASSESSMENT/PLAN (Z98.890) S/P lumbar laminectomy (primary encounter diagnosis) Seen virtually for 2 week post operative appointment. Since surgery he's experienced resolution of his leg pain. Some aching in the low back but this is tolerable. No new symptoms. Incision is healing well. No longer needing narcotics. Only using Tylenol. Discussed using Robaxin PRN. Continue with restrictions. Follow up at 6 week post op as scheduled. The majority of the visit was spent counseling and/or coordinating care for the patient. Total face to face time was 25 minutes. SIGNATURE: Keon Todd PA-C PATIENT NAME: Mimi Villasenor DATE: April 10, 2023 TIME: 7:32 AM PAGER:[facility]05-05-[facility]23 NoteHNO ID: [id number] Author: Lindsey Nair MD Service: ? Author Type: Fellow Type: Anesthesia Procedure Notes Filed: 03/27/2023 8:08 AM Note Text: ANESTHESIOLOGY PROCEDURE NOTE Airway General Information Procedure Start Time/Medication Administration: 03/27/2023 7:48 AM Patient location during procedure: OR Timeout Performed Pre-procedure: timeout performed Consent Obtained: Yes Patient identity confirmed: arm band and patient Staffing Fellow: Lindsey Nair MD Performed by: fellow Indications and Patient Condition Indications for airway management: anesthesia Preoxygenated: yes Method: asleep Cricoid Pressure: Yes Manual In-Line Stabilization: No Difficult Mask: No Final Airway Details Final airway type: endotracheal airway Final Endotracheal Airway: ETT Cuffed: yes Successful intubation technique: direct laryngoscopy Endotracheal tube insertion site: oral Blade size: #4 ETT size (mm): 8.0 Measured from: teeth Measurement (cm): 23 Placement verified by: chest auscultation and capnometry Cormack-Lehane Classification: grade IIa - partial view of glottis Number of attempts at approach: 1 Ventilation between attempts: none Failed airway: no Unrecognized esophageal intubation: no Airway not difficult SIGNATURE: Lindsey Nair MD PATIENT NAME: Mimi Villasenor DATE: March 27, 2023 TIME: 8:07 AM CSN: [id number] [facility]ville [facility]04-26-2023 NoteHNO ID: [id number] Author: Dia Covarrubias LPN Service: ? Author Type: LICENSED NURSE Type: Progress Notes Filed: 03/18/2023 9:50 AM Note Text: Neuro SPINE CARE COORDINATION PRE-OP VISIT Spoke with patient for pre op education. Given both written and verbal instructions re : Skin prep, wound care, pain management and post op restrictions. Provided to patient: [facility] Surgery Guide, skin prep supplies, Spine Surgery Pre/post op education packet. Yes Reviewed with patient to report to desk J19 for surgery ? Yes. Reviewed with the patient to call [phone] the day before to get surgery report time? Yes. Patient aware eat nothing after midnight prior to surgery, clear liquids only until 2 hours before report time. Yes. Patient aware surgery will be OUTPATIENT. Discussed care post discharge : Self care. Does patient have transportation to and from surgery ? Yes. Falls Education provided ? Yes Questions answered and patient voice(s) understanding via teach back. Physical Therapy : NO Additional Comments : Post -op Support All questions answered . [facility] History of Present illness Narrative* Dia Covarrubias LPN - 03/18/2023 9:35 AM EDT Neuro SPINE CARE COORDINATION PRE-OP VISIT Spoke with patient for pre op education. Given both written and verbal instructions re : Skin prep,wound care, pain management and post op restrictions. Provided to patient: [facility] Surgery Guide, skin prep supplies, Spine Surgery Pre/post op education packet. Yes Reviewed with patient to report to desk J19 for surgery ? Yes. Reviewed with the patient to call [phone] the day before to get surgery report time? Yes. Patient aware eat nothing after midnight prior to surgery, clear liquids only until 2 hours before report time. Yes. Patient aware surgery will be OUTPATIENT. Discussed care post discharge : Self care. Does patient have transportation to and from surgery ? Yes. Falls Education provided ? Yes Questions answered and patient voice(s) understanding via teach back. Physical Therapy : NO Additional Comments : Post -op Support All questions answered . Dia Covarrubias LPN documented in this encounterK[facility]04-05-2023 NoteHNO ID: [id number] Author: Cliff Gomes MD Service: ? Author Type: Physician Type: Progress Notes Filed: 02/25/2023 1:25 PM Note Text: SPINE SURGERY OUTPATIENT CONSULT This is an in-person visit. Staff note: Radiculopathy and claudication We discussed the minimum criteria for elective surgery: A. Imaging fits with history and examination and has surgical correctable findings B. Conservative modalities have been trialed in a meaningful way that have failed to provide relief C. The pain is significant enough to interfere with QOL and undergoing an irreversible surgical procedure makes sense to the patient from a symptom severity standpoint A and B were confirmed by me, C was confirmed by the patient. With this in mind it is reasonable to proceed with: 3.4 lami RBAEO reviewed in comprehensive detail, all questions were answered to stated satisfaction, patient elected to proceed I had a long discussion with the patient in the office today, they had many appropriate questions, all were answered to their satisfaction, no guarantees were offer nor implied in our discussion. Cliff Gomes MD SERVICE DATE: 02/25/2023 PCP: No primary care provider on file. REFERRING PROVIDER: No referring provider defined for this encounter. Consult requested for an opinion regarding the evaluation and treatment of leg pain. My final impression and recommendations will be communicated back to the requesting physician by way of the shared medical record or letter via US mail. NATE Whitlock Komal Villasenor is a 57 year old male presenting with daughter. CHIEF COMPLAINT: Left leg pain HISTORY OF PRESENT ILLNESS Mr. Villasenor is a very pleasant 57-year-old man who presents with approximately 1 year of left leg pain. He states that the pain is going on for about 1 year but flared significantly in December. The pain would go down the back of his left buttocks throughout most of his proximal left leg and down to his ankle. He did not have any significant extension into his foot. The pain would be present in most activities but could be relieved when lying supine. It was exacerbated by walking and even sitting. The pain can reach 10 out of 10 in severity. 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 He tried a number of conservative treatments, including anti-inflammatories, muscle relaxants, oral prednisone, and more recently gabapentin. He states that the gabapentin gave him the most significant relief. At present, his leg pain is down to a 3 out of 10 in severity. However, he has stopped taking his gabapentin recently due to difficulty tolerating the side effects. He denies any significant component of axial back pain and he denies any right leg pain. He denies any upper extremity complaints. PRECIPITATING EVENT: None DURATION OF SYMPTOMS: Greater Than 1 Year DERMATOMAL DISTRIBUTION: Left: L3 and L4 AMBULATORY STATUS: Independent Community Distances ANTIPLATELET OR ANTICOAGULATION STATUS: No PREVIOUS CONSERVATIVE TREATMENTS: baclofen, tizanidine and oxaprozin; gabapentin; oxycodone, voltaren, heat/cold, never tried injections or membrane stabilizers. PREVIOUS SPINAL SURGERY: None There is no problem list on file for this patient. History reviewed. No pertinent past medical history. History reviewed. No pertinent surgical history. History reviewed. No pertinent family history. Social History Tobacco Use Smoking status: Every Day Types: Cigarettes Smokeless tobacco: Never Substance Use Topics Alcohol use: Yes Comment: social ALLERGIES No Known Allergies MEDICATIONS: baclofen (LIORESAL) 20 mg tablet Take 20 mg by mouth daily at bedtime. oxaprozin (DAYPRO) 600 mg tablet Take 1,200 mg by mouth once daily. tamsulosin (FLOMAX) 0.4 mg Take by mouth. tiZANidine (ZANAFLEX) 4 mg tablet Take 8 mg by mouth daily at bedtime. gabapentin (NEURONTIN) 300 mg capsule Take 1 capsule by mouth three times daily for 30 days. REVIEW OF SYSTEMS: GENERAL: No weight loss or malaise MUSCULOSKELETAL: Negative for joint pain, swelling or muscle pain NEURO: No history of headaches, syncope, paralysis, seizures or tremors Patient Entered Questionnaires Spine Questions 01/20/2023 Pain Location: Lower back Pain Duration: 3-6 months Pain over last 6 months: Every day or nearly every day in the past 6 months Symptoms from neck/cervical spine: No Employment Status: Disabled due to back pain, permanently or temporarily Off work 1 month or more due to back/neck pain: Yes Applied for/receive disability/WC due to low back/neck pain Yes Involved in law suit/legal claim: No PROMIS Score Percentiles Physical Health 01/20/2023 Physical Function Percentile 14 Sleep Percentile 10 Fatigue Percentile 10 Pain Interference Percentile 4 PROMIS SOCIAL ROLE SCORE 01/20/2023 Social Role Satisfaction Percentile 3 PROMIS Global Health Scale 01/20/2023 Physica (more content not included)...[facility]04-05-2023 History of Present illness Narrative* Cliff Gomes MD - 02/25/2023 8:54 AM EDT SPINE SURGERY OUTPATIENT CONSULT This is an in-person visit. Staff note: Radiculopathy and claudication We discussed the minimum criteria for elective surgery: A. Imaging fits with history and examination and has surgical correctable findings B. Conservative modalities have been trialed in a meaningful way that have failed to provide relief C. The pain is significant enough to interfere with QOL and undergoing an irreversible surgical procedure makes sense to the patient from a symptom severity standpoint A and B were confirmed by me, C was confirmed by the patient. With this in mind it is reasonable toproceed with: 3.4 lami RBAEO reviewed in comprehensive detail, all questions were answered to stated satisfaction, patientelected to proceed I had a long discussion with the patient in the office today, they had many appropriate questions, all were answered to their satisfaction, no guarantees were offer nor implied in our discussion. Cliff Gomes MD SERVICE DATE: 02/25/2023 PCP: No primary care provider on file. REFERRING PROVIDER: No referring provider defined for this encounter. Consult requested for an opinion regarding the evaluation and treatment of leg pain. My final impression and recommendations will be communicated back to the requesting physician by way of the sharedmedical record or letter via US mail. SUBJECTIVE Mimi Villasenor is a 57 year old male presenting with daughter. CHIEF COMPLAINT: Left leg pain HISTORY OF PRESENT ILLNESS Mr. Villasenor is a very pleasant 57-year-old man who presents with approximately 1 year of left leg pain. He states that the pain is going on for about 1 year but flared significantly in December. The pain would go down the back of his left buttocks throughout most of his proximal left leg and down to his ankle. He did not have any significant extension into his foot. The pain would be present in most activities but could be relieved when lying supine. It was exacerbated by walking and even sitting. The pain can reach 10 out of 10 in severity. 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 He tried a number of conservative treatments, including anti-inflammatories, muscle relaxants, oral prednisone, and more recently gabapentin. He states that the gabapentin gave him the mostsignificant relief. At present, his leg pain is down to a 3 out of 10 in severity. However, he has stopped taking his gabapentin recently due to difficulty tolerating the side effects. He denies any significant component of axial back pain and he denies any right leg pain. He denies any upper extremity complaints. PRECIPITATING EVENT: None DURATION OF SYMPTOMS: Greater Than 1 Year DERMATOMAL DISTRIBUTION: Left: L3 and L4 AMBULATORY STATUS: Independent Community Distances ANTIPLATELET OR ANTICOAGULATION STATUS: No PREVIOUS CONSERVATIVE TREATMENTS: baclofen, tizanidine and oxaprozin; gabapentin; oxycodone, voltaren, heat/cold, never tried injections or membrane stabilizers. PREVIOUS SPINAL SURGERY: None There is no problem list on file for this patient. History reviewed. No pertinent past medical history. History reviewed. No pertinent surgical history. History reviewed. No pertinent family history. Social History Tobacco Use Smoking status: Every Day Types: Cigarettes Smokeless tobacco: Never Substance Use Topics Alcohol use: Yes Comment: social ALLERGIES No Known Allergies MEDICATIONS: baclofen (LIORESAL) 20 mg tablet Take 20 mg by mouth daily at bedtime. oxaprozin (DAYPRO) 600 mg tablet Take 1,200 mg by mouth once daily. tamsulosin (FLOMAX) 0.4 mg Take by mouth. tiZANidine (ZANAFLEX) 4 mg tablet Take 8 mg by mouth daily at bedtime. gabapentin (NEURONTIN) 300 mg capsule Take 1 capsule by mouth three times daily for 30 days. REVIEW OF SYSTEMS: GENERAL: No weight loss or malaise MUSCULOSKELETAL: Negative for joint pain, swelling or muscle pain NEURO: No history of headaches, syncope, paralysis, seizures or tremors Patient Entered Questionnaires Spine Questions 01/20/2023 Pain Location: Lower back Pain Duration: 3-6 months Pain over last 6 months: Every day or nearly every day in the past 6 months Symptoms from neck/cervical spine: No Employment Status: Disabled due to back pain, permanently or temporarily Off work 1 month or more due to back/neck pain: Yes Applied for/receive disability/WC due to low back/neck pain Yes Involved in law suit/legal claim: No PROMIS Score Percentiles Physical Health 01/20/2023 Physical Function Percentile 14 Sleep Percentile 10 Fatigue Percentile 10 Pain Interference Percentile 4 PROMIS SOCIAL ROLE SCORE 01/20/2023 Social Role Satisfaction Percentile 3 PROMIS Global Health Scale 01/20/2023 Physical Health Percentile 7 Mental Health Percentile 5 Percentiles provide an indication of how the patient's score ranks in relation to the general population. Higher percentile rankings indicate better function/quality of life. 50th percentile is the average of the general population and indicates half of respondents had a worse score. Depression Screening: PHQ-9 01/20/2023 Score 12 PHQ-9 Self-harm Question 01/20/2023 Thoughts that you would be better off , or of hurting yourself in some way 0 PHQ-9 Self-Harm (Item 9) response options: 0 Not at all 1 Several days 2 More than half the days 3 Nearly every day PHQ-9 Levels: 0-4 No to mild depression 5-9 Mild depression 10-14 Moderate depression 15-19 Moderately severe depression 20-27 Severe depression OBJECTIVE: PHYSICAL EXAM BP 131/78 Pulse 80 Resp 16 Ht 182.9 cm (6') Wt 83.1 kg (183 lb 4.8 oz) SpO2 97% BMI 24.86 kg/m GENERAL APPEARANCE: Well nourished, well developed, and no apparent distress. NEURO PSYCH: Patient oriented to person, place, and time. Mood pleasant. Benign affect. MUSCULOSKELETAL VISUAL INSPECTION CERVICAL: WNL THORACIC: WNL LUMBAR: WNL MOTOR: 5/5 in all muscle groups. SENSORY: Normal sensory exam GAIT: Normal. REFLEXES: +2 to bilateral U/L extremities. LONG TRACT SIGNS: No clonus. No Hoffmans. NEURO TESTS: None DATA REVIEW Imaging and outside records independently reviewed ASSESSMENT/PLAN (M54.16) Lumbar radiculopathy (primary encounter diagnosis) SIGNATURE: Cliff Gomes MD PATIENT NAME: Mimi Villasenor DATE: February 25, 2023 TIME: 9:26 AM PAGER: [facility] NoteOP Note OPERATION DATE: 02/18/2023 PREOPERATIVE DIAGNOSIS: Positive fecal occult blood. POSTOPERATIVE DIAGNOSIS: Flat lesion in the proximal transverse colon. PROCEDURE: Colonoscopy to cecum with biopsy of flat mucosal lesion of the proximal transverse colon. SURGEON: Gayla Kat M.D. ANESTHESIA: Monitored anesthesia care. ESTIMATED BLOOD LOSS: Less than 1 mL. INDICATIONS AND CONSENT: Patient is a 57-year-old male recently found to have positive fecal occult blood. Indications, risks, benefits, alternatives of proceeding with colonoscopy were explained extensively to the patient, including the risks of bleeding, colon perforation or anesthetic complications. All of his questions were answered. Informed consent was obtained. PROCEDURE: Patient brought to the operating room, placed in the left lateral decubitus position. Monitored anesthesia care was provided. Rectal exam was performed which showed no masses or blood. The scope was inserted into the anal canal. Under direct visualization was advanced. It was advanced to the cecum where cecal markings were clearly identified. Upon withdrawal of the scope, mucosal surfaces were carefully examined. There was noted to be a good prep. Within the proximal transverse colon, there was what appeared to be a flat lesion around a fold versus some irritation and mucosal edema. Several biopsies of this lesion were obtained with cold biopsy forceps for with good hemostasis. No other mass lesions or polyps were noted. No inflammatory changes or ulcerations. No significant diverticulosis. The scope was retroflexed in the anal canal. There was no significant hemorrhoidal disease. Scope was then withdrawn. Patient tolerated procedure well, was sent to recovery room in good condition. CC: Wendy Daniel M.D.[facility] [id number] NoteChief Complaint consultation for positive occult stool HPI Staff 57 year old male presents on consultation from Dr. Daniel for positive occult stool. Denies abdominal or rectal pain. He has not noted rectal bleeding or blood in stool. Denies change in bowel habits. No nausea or vomiting. No unexplained weight loss. Never had colonoscopy in the past. No known family history of colon cancer. History of Present Illness 57 yo male with h/o lumbar radiculopathy; bph; referred for positive fecal occult blood; denies change in bms or blood in stools, no abdominal complaints; no previous colonoscopy; abdominal operations significant for appendectomy and bilateral inguinal hernia repairs; no asa or NSAID use; no SBE prophylaxis; no fmhx of GI malignancy or IBD. Review of Systems PHQ Score Initial Depression Screen Score: 0 ROS - Provider Constitutional: no fever, no sweats, no weight loss. Eyes: no glasses, no blurred vision, no visual loss. ENMT: no dentures, no hoarseness, no swallowing difficulties, no hearing loss, no ear infection(s),no nose bleeds. Cardiovascular: normal blood pressure, no chest pain, regular heartbeat, no heart murmur. Respiratory: no shortness of breath, no cough, no asthma, no wheezing. Gastrointestinal: no nausea, no vomiting, no diarrhea, no constipation, no blood in stool, no change in bowel habits, no abdominal pain, no hepatitis. Genitourinary: no kidney stones, no urine infection, no dysuria. Musculoskeletal: no pain, no weakness. Skin: no changing moles, no rash, no skin lumps. Neurologic: no seizures, no epilepsy, no headache. Psychiatric: no emotional or psychiatric problem. Heme/Lymph: no bleeding problems, no anemia, no blood clots, no transfusions. Allergy/Immunologic: no swollen lymph nodes/glands, no IV drug abuse. Other: Additional ROS info: Except as noted in the above Review of Systems and in the History of Present Illness, all other systems have been reviewed and are negative or noncontributory. Physical Exam Vitals & Measurements HR: 68(Peripheral) RR: 16 BP: 120/76 HT: 72 in HT: 182.88 cm WT: 85 kg WT: 187 lb BMI: 25.41 HEENT: normal conjunctiva, sclera clear, no scleral icterus, EOM intact, PERRLA, oral mucosa moist without lesions. Neck: trachea midline, no mass, symmetric, no thyromegaly or nodules, no adenopathy Respiratory: lungs CTA, respirations non labored. Cardiovascular: regular rate and rhythm, no murmur, no pedal edema or varicosities. Gastrointestinal: soft, non distended, no tenderness, no masses, no palpable hernias, diastasis recti no, no hepatosplenomegaly; normal bs Lymphatic: no cervical adenopathy, no supraclavicular adenopathy Musculoskeletal: normal gait, digits and nails without infection, nodes, cyanosis, clubbing. Skin: no rashes, no lesions, no ulcers, no subcutaneous nodules, induration. Psychiatric/Neuro: oriented to time, place, person, judgement normal, affect appropriate for age, insight intact, no focal deficits. Tests: labs reviewed, x-rays reviewed, review of old records completed, Discussed surgical options, risks, and possible complications with patient. Assessment/Plan 1. Positive fecal occult blood test (R19.5: Other fecal abnormalities) plan colonoscopy under anesthesia, informed consent obtained. Follow-up No qualifying data available Problem List/Past Medical History Ongoing Alcohol abuse BMI 25.0-25.9,adult BPH (benign prostatic hyperplasia) Impotence Low back pain syndrome Lumbar radiculopathy Positive fecal occult blood test Smoker Historical No qualifying data Procedure/Surgical History excision of subcutaneous nodule left anterior thigh - local (07/26/2015), Appendectomy, Repair of left inguinal hernia, Repair of right inguinal hernia. Medications Daypro 600 mg Tab, 1200 mg= 2 tab(s), Oral, Daily Flomax 0.4 mg Cap, 0.4 mg= 1 cap(s), Oral, Daily gabapentin Allergies No Known Allergies Social History Alcohol Current, Beer, 3-5 times per week, 01/27/2023 Substance Abuse - Denies Substance Abuse, 01/27/2023 Tobacco 10 or more cigarettes (1/2 pack or more)/day in last 30 days Tobacco Use:. Never Smokeless Tobacco Use:. Cigarettes, 1 per day. Started age 40.0 Years. Yes, 01/27/2023 Family History Diabetes mellitus type 2: Brother. Malignant lymphoma: Sister. Immunizations Vaccine Date Status Comments influenza virus vaccine, inactivated - Not Given Patient Refuses SARS-CoV-2 mRNA (isaiahn 5y-11y) vac - Not Given Patient RefusesWright-Patterson Medical CenterComment on above:Result Comment: Electronically Signed By: SHEY ORR, Gayla Li\Date and Time Signed: 01/28/23 16:46 [id number] Miscellaneous Notes* Telephone Encounter - Nichole Granado APRN.CNP - 01/28/2023 3:19 PM EST Called and spoke with patient regarding his case. I reviewing his images and symptoms with Dr. Guy who recommends lumbar decompression. However Dr. Guy would not be able to schedule this until May. Patient requested another surgeon who could possibly get him in sooner. Also provided appointment number if patient does not hear from scheduling by end of next week. Patient grateful for call and all questions answered. Nichole Granado APRN.JOSUE documented in [facility] encounterK[facility]03-[facility]-2023 NoteHNO ID: [id number] Author: Nichole Granado APRN.CNP Service: ? Author Type: Nurse Practitioner Type: Progress Notes Filed: 01/23/2023 2:30 PM Note Text: SPINE SURGERY NEW PATIENT This is an in-person visit. PCP: No primary care provider on file. REFERRING PROVIDER: none SUBJECTIVE HISTORY OF PRESENT ILLNESS: Mimi Villasenor is a 57 year old male presenting with spouse. 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 Pain is worse when sitting too long and standing. Pain path radiates from his low back down his left buttock into his posterior thigh and into his knee. Patient states when the pain is really bad the pain radiates further down his leg and into his heel. He describes the pain as a constant burning. He also states he gets bad muscle spasms in the top of his left thigh. Patient also endorses numbness and tingling He went to see his PCP who prescribed him baclofen, tizanidine and oxaprozin; Patient states PCP also gave him 3 injections in the back which he did not know the name of the specific drugs injected but stated it was a steroid, muscle relaxer and NSAID which helped with his pain for a couple days. CMT: baclofen, tizanidine and oxaprozin; oxycodone, voltaren, heat/cold, never tried injections or membrane stabilizers Educated patient on Gabapentin and states he is willingly to try it in the meantime for pain. Provided him with chart and instructions to titrate until he finds a dose that works for his pain. Denies bowel and bladder incontinence. Having bowel issues with constipation. Occult blood test + going for colonoscopy next week. Denies trouble using hands. Denies unsteady gait and feeling unbalanced. Smoker since 1996 almost pack a day (kennedy sweets) Hx ETOH abuse drinks daily PRECIPITATING EVENT: None DURATION OF SYMPTOMS: Greater Than 1 Year Progressively worse this past month PAIN EVALUATION 01/20/2023 0816 Pain Level: 6 Pain Location: Back-Lower Description: Aching;Cramping;Numbness;Spasm;Stiffness;Tightness;Tingling Frequency: Intermittent Intervention/Comfort measure: Medication;Reposition;Relaxation;Cold;Pillow support;Positioning Pain Radiation: down posterior thigh into knee and when severe can go pass the knee into heel of foot All left side Aggravating Factors: Flexion, Rotation, Lifting, Standing, Walking Alleviating Factors: Medications, Side-lying Pain Ratio: Pain in the leg(s) is greater than in the back DERMATOMAL DISTRIBUTION: Left: L3, L4, and L5 AMBULATORY STATUS: Independent Community Distances ANTIPLATELET OR ANTICOAGULATION STATUS: No PREVIOUS CONSERVATIVE TREATMENTS: See above HPI PREVIOUS SPINAL SURGERY: None There is no problem list on file for this patient. No past medical history on file. No past surgical history on file. No family history on file. Social History Tobacco Use Smoking status: Every Day Types: Cigarettes Smokeless tobacco: Never Substance Use Topics Alcohol use: Yes Comment: social ALLERGIES No Known Allergies MEDICATIONS: baclofen (LIORESAL) 20 mg tablet Take 20 mg by mouth daily at bedtime. oxaprozin (DAYPRO) 600 mg tablet Take 1,200 mg by mouth once daily. tamsulosin (FLOMAX) 0.4 mg Take by mouth. tiZANidine (ZANAFLEX) 4 mg tablet Take 8 mg by mouth daily at bedtime. gabapentin (NEURONTIN) 300 mg capsule Take 1 capsule by mouth three times daily for 30 days. REVIEW OF SYSTEMS: PAIN ASSESSMENT: See HPI. GENERAL: Denies fever, chills malaise and weight loss. HEENT: No recent change in vision or hearing. CARDIOVASCULAR: Denies chest pain, history of A-fib, valvular disease, or pacemaker/ICD. RESPIRATORY: Denies SOB, sputum production, and hemoptysis. GI: Denies GI ulcers, inflammatory disease, or liver disease. : Denies change in frequency or urgency, kidney disease, and burning with urination. MUSCULOSKELETAL: Positive for low back pain and muscle pain SKIN: Denies rash or itching. PSYCHOLOGICAL: Denies uncontrolled depression or anxiety. NEURO: Denies CVA, seizures, headaches. ENDOCRINE: Denies diabetes, thyroid disease. HEMATOLOGY/LYMPHOLOGY: Denies cancer, bleeding or clotting disorders, anemia,and DVT's. ALLERGIC/IMMUNOLOGICAL: Denies risks for infection, or recent MRSA infections. Patient Entered Questionnaires Spine Questions 01/20/2023 Pain Location: Lower back Pain Duration: 3-6 months Pain over last 6 months: Every day or nearly every day in the past 6 months Symptoms from neck/cervical spine: No Employment Status: Disabled due to back pain, permanently or temporarily Off work 1 month or more due to back/neck pain: Yes Applied for/receive disability/WC due to low back/neck pain Yes Involved in law suit/legal claim: No PROMIS Score Percentiles (more content not included)...[facility]03-03-2023 NoteHNO ID: [id number] Author: Kae Rodriguez RT(R) Service: Radiology Author Type: Technologist Type: Progress Notes Filed: 01/23/2023 11:47 AM Note Text: Radiology Service Progress Note PATIENT NAME: Mimi Villasenor DATE OF SERVICE: January 23, 2023 TIME: 11:46 AM PATIENT IDENTITY VERIFICATION COMPLETED USING TWO (2) IDENTIFIERS: Name and Date of confirmed by patient verbally. FALL SCREENING: Has the patient had 2 falls in the last year or 1 fall with injury or currently using an Ambulatory Assistive Device (Walker, Cane, Wheelchair, Crutches, etc.)? No PATIENT GENDER DATA: Male PATIENT RELEVANT IMPLANT DATA REVIEWED: Not Applicable RADIOLOGY DEPARTMENT: General X-ray: Exam(s) Completed: Spine X-Ray(s): Lumbar AP / LAT / L5-S1 / FLEX-EXT PERIPHERAL IV DATA: Not applicable SIGNED BY: RT Birdie(R) January 23, 2023 11:46 [facility]03-03-2023 History of Present illness Narrative* Nichole Granado APRN.TECHNICAL SALES SPECIALIST - 01/23/2023 1:00 PM EST Images from the original note were not included. SPINE SURGERY NEW PATIENT This is an in-person visit. PCP: No primary care provider on file. REFERRING PROVIDER: none SUBJECTIVE HISTORY OF PRESENT ILLNESS: Mimi Villasenor is a 57 year old male presenting with spouse. 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 Pain is worse when sitting too long and standing. Pain path radiates from his low back down his left buttock into his posterior thigh and into his knee. Patient states when the pain is really bad the pain radiates further down his leg and into his heel. He describes the pain as a constant burning. He also states he gets bad muscle spasms in the top of his left thigh. Patient also endorses numbness and tingling He went to see his PCP who prescribed him baclofen, tizanidine and oxaprozin; Patient states PCP also gave him 3 injections in the back which he did not know the name of the specific drugs injected but stated it was a steroid, muscle relaxer and NSAID which helped with his pain for a couple days. CMT: baclofen, tizanidine and oxaprozin; oxycodone, voltaren, heat/cold, never tried injections or membrane stabilizers Educated patient on Gabapentin and states he is willingly to try it in the meantime for pain. Provided him with chart and instructions to titrate until he finds a dose that works for his pain. Denies bowel and bladder incontinence. Having bowel issues with constipation. Occult blood test + going for colonoscopy next week. Denies trouble using hands. Denies unsteady gait and feeling unbalanced. Smoker since 1996 almost pack a day (kennedy sweets) Hx ETOH abuse drinks daily PRECIPITATING EVENT: None DURATION OF SYMPTOMS: Greater Than 1 Year Progressively worse this past month PAIN EVALUATION 01/20/2023 0816 Pain Level: 6 Pain Location: Back-Lower Description: Aching;Cramping;Numbness;Spasm;Stiffness;Tightness;Tingling Frequency: Intermittent Intervention/Comfort measure: Medication;Reposition;Relaxation;Cold;Pillow support;Positioning Pain Radiation: down posterior thigh into knee and when severe can go pass the knee into heel of foot All left side Aggravating Factors: Flexion, Rotation, Lifting, Standing, Walking Alleviating Factors: Medications, Side-lying Pain Ratio: Pain in the leg(s) is greater than in the back DERMATOMAL DISTRIBUTION: Left: L3, L4, and L5 AMBULATORY STATUS: Independent Community Distances ANTIPLATELET OR ANTICOAGULATION STATUS: No PREVIOUS CONSERVATIVE TREATMENTS: See above HPI PREVIOUS SPINAL SURGERY: None There is no problem list on file for this patient. No past medical history on file. No past surgical history on file. No family history on file. Social History Tobacco Use Smoking status: Every Day Types: Cigarettes Smokeless tobacco: Never Substance Use Topics Alcohol use: Yes Comment: social ALLERGIES No Known Allergies MEDICATIONS: baclofen (LIORESAL) 20 mg tablet Take 20 mg by mouth daily at bedtime. oxaprozin (DAYPRO) 600 mg tablet Take 1,200 mg by mouth once daily. tamsulosin (FLOMAX) 0.4 mg Take by mouth. tiZANidine (ZANAFLEX) 4 mg tablet Take 8 mg by mouth daily at bedtime. gabapentin (NEURONTIN) 300 mg capsule Take 1 capsule by mouth three times daily for 30 days. REVIEW OF SYSTEMS: PAIN ASSESSMENT: See HPI. GENERAL: Denies fever, chills malaise and weight loss. HEENT: No recent change in vision or hearing. CARDIOVASCULAR: Denies chest pain, history of A-fib, valvular disease, or pacemaker/ICD. RESPIRATORY: Denies SOB, sputum production, and hemoptysis. GI: Denies GI ulcers, inflammatory disease, or liver disease. : Denies change in frequency or urgency, kidney disease, and burning with urination. MUSCULOSKELETAL: Positive for low back pain and muscle pain SKIN: Denies rash or itching. PSYCHOLOGICAL: Denies uncontrolled depression or anxiety. NEURO: Denies CVA, seizures, headaches. ENDOCRINE: Denies diabetes, thyroid disease. HEMATOLOGY/LYMPHOLOGY: Denies cancer, bleeding or clotting disorders, anemia,and DVT's. ALLERGIC/IMMUNOLOGICAL: Denies risks for infection, or recent MRSA infections. Patient Entered Questionnaires Spine Questions 01/20/2023 Pain Location: Lower back Pain Duration: 3-6 months Pain over last 6 months: Every day or nearly every day in the past 6 months Symptoms from neck/cervical spine: No Employment Status: Disabled due to back pain, permanently or temporarily Off work 1 month or more due to back/neck pain: Yes Applied for/receive disability/WC due to low back/neck pain Yes Involved in law suit/legal claim: No PROMIS Score Percentiles Physical Health 01/20/2023 Physical Function Percentile 14 Sleep Percentile 10 Fatigue Percentile 10 Pain Interference Percentile 4 PROMIS SOCIAL ROLE SCORE 01/20/2023 Social Role Satisfaction Percentile 3 PROMIS Global Health Scale 01/20/2023 Physical Health Percentile 7 Mental Health Percentile 5 Percentiles provide an indication of how the patient's score ranks in relation to the general population. Higher percentile rankings indicate better function/quality of life. 50th percentile is the average of the general population and indicates half of respondents had a worse score. Depression Screening: PHQ-9 01/20/2023 Score 12 PHQ-9 Self-harm Question 01/20/2023 Thoughts that you would be better off , or of hurting yourself in some way 0 PHQ-9 Self-Harm (Item 9) response options: 0 Not at all 1 Several days 2 More than half the days 3 Nearly every day PHQ-9 Levels: 0-4 No to mild depression 5-9 Mild depression 10-14 Moderate depression 15-19 Moderately severe depression 20-27 Severe depression OBJECTIVE: PHYSICAL EXAM BP 111/75 Pulse 81 Resp 18 Ht 182.9 cm (6') Wt 82.8 kg (182 lb 8 oz) BMI 24.75 kg/m GENERAL APPEARANCE: Well nourished, well developed, and no apparent distress. NEURO PSYCH: Patient oriented to person, place, and time. Mood pleasant. Benign affect. MUSCULOSKELETAL VISUAL INSPECTION CERVICAL: WNL THORACIC: WNL LUMBAR: WNL PALPATION: SPINOUS PROCESS: No pain. PARASPINALS: No pain. MUSCLE BULK: Normal and symmetrical in the upper & lower extremities. MUSCLE TONE: Normal. MOTOR: 5/5 in all muscle groups. Except LLE weakness : 4/5 left hip flexors left EHL 4/5 SENSORY: Normal sensory exam GAIT: Abnormal. Favoring right side when walking REFLEXES: +2 to bilateral U/L extremities. PROPRIOCEPTION: Normal. LONG TRACT SIGNS: No clonus. No Hoffmans. STRAIGHT LEG TEST: Ipsilateral: Positive. L'HERMITTES SIGN: Not tested. SPURLING'S TEST: Negative. DATA REVIEW Images independently reviewed with the patient MRI lumbar 12/2022 L3/4 moderate to severe canal stenosis and foraminal narrowing L4/5 Grade 1 anterolisthesis with moderate left side foraminal narrowing XR lumbar spine flex/ext 01/2023 flexion and extension there is no instability at L4-5 ASSESSMENT/PLAN (M54.16) Lumbar radiculopathy (primary encounter diagnosis) (M54.42, G89.29) Chronic left-sided low back pain with left-sided sciatica (M48.061) Spinal stenosis, lumbar region, without neurogenic claudication (M43.16) Spondylolisthesis of lumbar region Mimi Villasenor will continue with medical management of his/her condition and is a possible surgical candidate pending review. Possible lumbar decompression. 1. Medications: Neurontin (gabepentin) 300 per dosing protocol (Sheet given) Continue with current medication regimen of Zanaflex prescribed by PCP 2. Follow up: will review case with Dr. Guy next week and call patient with next steps for possible surgical intervention and/or surgical referral 3. Discussed with patient other non-surgical options such as injections, patient wishes to pursue surgery if possible due to debilitating pain, unable to work and perform daily tasks due to pain. Imaging Ordered: None I spent a total of 45 minutes on the date of the service which included preparing to see the patient, [id number] patient care, completing clinical documentation, obtaining and/or reviewing separately obtained history, performing a medically appropriate examination, counseling and educating the pat ient/family/caregiver, independently interpreting results (not separately reported), and communicating results to the patient/family/caregiver. SIGNATURE: Nichole Granado APRN.CNP PATIENT NAME: Mimi Villasenor DATE: January 22, 2023 TIME: 3:48 PM PAGER: [facility] History of Present illness Narrative* KaeRT Balwinder(R) - 01/23/2023 12:30 PM EST Radiology Service Progress Note PATIENT NAME: Mimi Villasenor DATE OF SERVICE: January 23, 2023 TIME: 11:46 AM PATIENT IDENTITY VERIFICATION COMPLETED USING TWO (2) IDENTIFIERS: Name and Date of confirmedby patient verbally. FALL SCREENING: Has the patient had 2 falls in the last year or 1 fall with injury or currently using an Ambulatory Assistive Device (Walker, Cane, Wheelchair, Crutches, etc.)? No PATIENT GENDER DATA: Male PATIENT RELEVANT IMPLANT DATA REVIEWED: Not Applicable RADIOLOGY DEPARTMENT: General X-ray: Exam(s) Completed: Spine X-Ray(s): Lumbar AP / LAT / L5-S1 / FLEX-EXT PERIPHERAL IV DATA: Not applicable SIGNED BY: RT Birdie(R) January 23, 2023 11:46 AM documented in this encounterKet[facility]02-[facility]23 NoteHNO ID: [id number] Author: Nichole Granado APRN.JOSUE Service: ? Author Type: Nurse Practitioner Type: Progress Notes Filed: 01/16/2023 4:25 PM Note Text: Per Triage: Mimi Villasenor is a 57 year old male that requests evaluation of lumbar spine. Per review, they have symptoms of Back, hip, leg pain on left side, numbness weakness and diff walking all left side Referring Provider Dr. Wendy Daniel CMT: Chiropractor, muscle relaxant, NSAID, Tylenol Studies (Reports unless indicated) MRI lumbar L2/3 canal and foraminal narrowing L3/4 marked central canal narrowing and bilateral foraminal narrowing Grad 1 anterolisthesis L4-5 Disposition: Please schedule with myself. XR lumbar 4 ext and flex ordered please instruct patient to complete prior to appointment can be same day.[facility]02-24-[facility]23 NoteHNO ID: [id number] Author: Brianda Garcia Service: ? Author Type: ? Type: Progress Notes Filed: 01/16/2023 4:25 PM Note Text: Patient name: Mimi Villasenor Are you being referred by a [facility] Provider or Pain Management Provider at [facility]? No If answer is YES please schedule directly with surgeon, triage does not need to be completed. Is this a self-referral No If not, who is the Referring Provider Dr. Wendy Daniel Is this a 2nd opinion? No Were you offered surgery? No MRI/CT/myelogram within 12 months? Yes If NO , please refer to medical spine or PCP to complete above imaging, triage does not need to be completed If YES,? please ask for the name/address of the facility where the MRI/CT/myelogram was completed: [facility] [address] [place] [address] MRI/CT/myelogram viewable in Epic: No If not, please provide [phone] to fax in imaging reports for review. Also, please inform patient to hand carry imaging disc to appointment. XR (spine) within 12 months: Yes If YES,? please ask for the name/address of the facility where the XR was completed: [facility] [address] [place] [address] Dr. Pedraza's patients: Have you had previous EMG/Nerve Conduction Study, Ultrasound, or MRI for these same symptoms? If YES,? please ask for the name/address of the facility where they were completed: Requested provider (First and Last name): unknown Are you interested in a virtual visit if offered? 1. Where are you having symptoms related to this visit? Lumbar spine Back pain Yes and hip Leg pain Yes Lt side Arm pain No Neck pain No 2. Are you having any of the following symptoms: Difficulty walking Yes Numbness Yes Lt side Weakness Yes Lt side Trouble using your hands? No 3. Have you had any injections or physical therapy in the last 12 months? If YES then please ask for the name/address of the facility where the injections and/or physical therapy was completed Have you tried any other kinds of non-surgical treatments in the last 12 months? (For example: NSAIDS, muscle relaxants, analgesics, oral steroids, Chiropractor, Acupuncture): Chiropractor, muscle relaxant, NSAID, Tylenol 4. Are you currently taking daily prescribed narcotic medications for your current symptoms (For example Oxycodone, Hydrocodone, Tramadol, Morphine, Other)? No 5. Have you had previous spinal surgery for this same symptoms? No If YES? please ask for the name of facility/address of where the surgery was completed: Additional Comments [phone] note No data available for this section General Surgery [place] [facility] + Plan noteGeneral Surgery [place] [facility] note* Diagnosis Lumbar radiculopathy- Primary Thoracic or lumbosacral neuritis or radiculitis, unspecified Chronic left-sided low back pain with left-sided sciatica Spinal stenosis, lumbar region, without neurogenic claudication Spondylolisthesis of lumbar region Acquired spondylolisthesis documented in this encounter [facility] note* Diagnosis Lumbar spondylosis Lumbosacral spondylosis without myelopathy documented in this encounter [facility] note* Diagnosis Lumbar radiculopathy- Primary Thoracic or lumbosacral neuritis or radiculitis, unspecified documented in this encounter [facility] note* Diagnosis Lumbar radiculopathy- Primary Thoracic or lumbosacral neuritis or radiculitis, unspecified Pre-op testing Preoperative examination, unspecified Lumbar radiculopathy Thoracic or lumbosacral neuritis or radiculitis, unspecified Pre-op testing Preoperative examination, unspecified documented in this encounter [facility] note* Diagnosis Educational circumstance- Primary Lumbar radiculopathy Thoracic or lumbosacral neuritis or radiculitis, unspecified Pre-op testing Preoperative examination, unspecified documented in this encounter [facility] note* Diagnosis S/P lumbar laminectomy- Primary Other postprocedural status documented in this encounter [facility] note* Diagnosis History of lumbar laminectomy- Primary documented in this encounter [facility] noteNo assessment information availableUniversity Hospitals [facility] Work Phone: Hospital Discharge instructions No data available for this section General [facility] [place] [facility] Discharge instructions Additional Instructions DISCHARGE INSTRUCTIONS FOR COLONOSCOPY WHAT TO EXPECT: - You may feel full, gassy or cramping after your procedure. In some cases, this may be from a few hours to a day. Walking may help relieve the discomfort. - If you have polyp(s) removed you may note some minor bloody discharge after your first bowel movements. - You should begin to recover from anesthesia within 1 hour of the procedure, however may feel groggy for the next 24 hours. DO's AND DON'Ts: - Call your doctor right away if you have a hard abdomen, severe pain, are passing lots of bright red blood or clots. - Call your doctor if you develop any rashes, hives or difficulty breathing. - Let your doctor know if you have not had a bowel movement by 3 days after your procedure. - If you take 81 mg aspirin for your heart it is safe to resume this medication. - If you take other blood thinner medications your doctor will instruct you when these can safely be resumed. - Do NOT drive for 24 hours. - Do NOT operate machinery such as power tools, lawn mowers, snow blowers, sewing machines, etc. for 24 hours. - Avoid alcoholic beverages and drugs for allergies, nerves, or sleep. - Do NOT stay alone. Do NOT leave your child unattended. - Do NOT make important personal or business decisions or sign any legal documents. - Eat solid foods and drink liquids in smaller amounts than usual until normal appetite returns. If you should experience an upset stomach, liquids high in sugar content (soda, Dheeraj-Aid, non-acid juices) are recommended. - You can resume normal activities tomorrow. FOLLOW UP & RECOMMENDATIONS: -Notify the doctor if you have any problems. -Repeat colonoscopy in 3 years. -Follow up with PCP. -Office number [phone]. [facility] Work Phone: Progress note No data available for this section General Surgery [place] Reason for referral (narrative)* Diagnostic Procedure Only (Routine) - Closed Specialty Diagnoses / Procedures Referred By Melonie leigh Referred To Contact XR IMAGING Diagnoses Lumbar spondylosis Procedures XR LUMBAR MOTION 4V AP/LAT/ FLEX/EXT RADEX SPINE LUMBOSACRAL MINIMUM 4 VIEWS Nichole Granado APRN.TECHNICAL SALES SPECIALIST [address] [place] [address] Xr Imaging Referral ID Status Reason Start Date Expiration Date V isits Requested Visits Authorized [id number] Closed Auto-Generate d Referral 01/16/2023 02/15/2024 1 1 [facility] for referral (narrative) Referred by: SHEY ORR, Gayla Holly [facility] Surgery Janalakshmi Summary Purpose Family History No Family History Records Found Relationship Condition Age at Onset Recorded Date/T renee brother Diabetes mellitus Unknown father Malignant neoplasm of throat Unknown Advance Directives No Advanced Directives Records Found Advance Directive Response Recorded Date/ Time Advance Directives No July 22, 2023 10:17am Reason for Referral Specialty Diagnoses / Procedures Referred By Contac t Referred To Contact [facility] Diagnoses S/P lumbar laminectomy Procedures CONSULT TO PHYSICAL THERAPY PHYSICAL THERAPY EVALUATION HIGH COMPLEX 45 MINS Keon Todd PA-C [address] [place] [address] [facility] [address] [place] [address] Referral ID Status Reason Start Date Expiration Date Visits Requested Visits Authorized [id number] Pending Review Auto-Generat ed Referral 05/28/2023 05/27/2024 1 1 Specialty Diagnoses / Procedures Referred By Contac t Referred To Contact Diagnoses S/P lumbar laminectomy Procedures PROVIDER ORDERED FOLLOW UP OFFICE/OUTPATIENT [facility] MDM 60-74 MINUTES Keon Todd PA-C [address] [place] [address] Referral ID Status Reason Start Date Expiration Date Visits Requested Visits Authorized [id number] Authorized PCP Requested Referral 06/26/2023 05/27/2024 1 1 Specialty Diagnoses / Procedures Referred By Contac t Referred To Contact Diagnoses Lumbar radiculopathy Pre-op testing Procedures REFER TO PACC - PRE ANESTHESIA CONSULTATION CLINIC OFFICE/OUTPATIENT NEW HIGH MDM 60-74 MINUTES Keon Todd PA-C [address] [place] [address] Referral ID Status Reason Start Date Expiration Date Visits Requested Visits Authorized [id number] Authorized PCP Requested Referral 03/06/2023 03/04/2024 1 1 Chief Complaint and Reason for Visit Chief Complaint Serrated Adenoma of Colon Additional Source Comments Source Comments (unrecognize d section and content) In the event this informatio n is protected by the Federal Confidentiality of Alcohol and Drug Abuse Patient Records regulations: The Federal rules restrict any use of the information to criminally investigate or prosecute any alcohol or drug abuse patient.[facility] HospitalIn the event this information is protected by the Federal Confidentiality of Alcohol and Drug Abuse Patient Records regulations: The Federal rules restrict any use of the information to criminally investigate or prosecute any alcohol or drug abuse patient.[facility] HospitalIn the event this information is protected by the Federal Confidentiality of Alcohol and Drug Abuse Patient Records regulations: The Federal rules restrict any use of the information to criminally investigate or prosecute any alcohol or drug abuse patient.[facility] HospitalIn the event this information is protected by the Federal Confidentiality of Alcohol and Drug Abuse Patient Records regulations: The Federal rules restrict any use of the information to criminally investigate or prosecute any alcohol or drug abuse patient.[facility] HospitalIn the event this information is protected by the Federal Confidentiality of Alcohol and Drug Abuse Patient Records regulations: The Federal rules restrict any use of the information to criminally investigate or prosecute any alcohol or drug abuse patient.[facility] HospitalIn the event this information is protected by the Federal Confidentiality of Alcohol and Drug Abuse Patient Records regulations: The Federal rules restrict any use of the information to criminally investigate or prosecute any alcohol or drug abuse patient.[facility] HospitalIn the event this information is protected by the Federal Confidentiality of Alcohol and Drug Abuse Patient Records regulations: The Federal rules restrict any use of the information to criminally investigate or prosecute any alcohol or drug abuse patient.[facility] HospitalIn the event this information is protected by the Federal Confidentiality of Alcohol and Drug Abuse Patient Records regulations: The Federal rules restrict any use of the information to criminally investigate or prosecute any alcohol or drug abuse patient.[facility] HospitalIn the event this information is protected by the Federal Confidentiality of Alcohol and Drug Abuse Patient Records regulations: The Federal rules restrict any use of the information to criminally investigate or prosecute any alcohol or drug abuse patient.[facility] HospitalIn the event this information is protected by the Federal Confidentiality of Alcohol and Drug Abuse Patient Records regulations: The Federal rules restrict any use of the information to criminally investigate or prosecute any alcohol or drug abuse patient.[facility] HospitalIn the event this information is protected by the Federal Confidentiality of Alcohol and Drug Abuse Patient Records regulations: The Federal rules restrict any use of the information to criminally investigate or prosecute any alcohol or drug abuse patient.[facility] HospitalIn the event this information is protected by the Federal Confidentiality of Alcohol and Drug Abuse Patient Records regulations: The Federal rules restrict any use of the information to criminally investigate or prosecute any alcohol or drug abuse patient.[facility] HospitalIn the event this information is protected by the Federal Confidentiality of Alcohol and Drug Abuse Patient Records regulations: The Federal rules restrict any use of the information to criminally investigate or prosecute any alcohol or drug abuse patient.[facility] HospitalIn the event this information is protected by the Federal Confidentiality of Alcohol and Drug Abuse Patient Records regulations: The Federal rules restrict any use of the information to criminally investigate or prosecute any alcohol or drug abuse patient.[facility] HospitalIn the event this information is protected by the Federal Confidentiality of Alcohol and Drug Abuse Patient Records regulations: The Federal rules restrict any use of the information to criminally investigate or prosecute any alcohol or drug abuse patient.[facility] Reason for Visit (unrecogniz ed section and content) Reason Comments New Patient Reason Comments Radio Main J1 Specialty Diagnoses / Procedures Referred By Contac t Referred To Contact XR IMAGING Diagnoses Lumbar spondylosis Procedures XR LUMBAR MOTION 4V AP/LAT/ FLEX/EXT RADEX SPINE LUMBOSACRAL MINIMUM 4 VIEWS Nichole Granado APRN.TECHNICAL SALES SPECIALIST [address] [place] [address] Xr Imaging Referral ID Status Reason Start Date Expiration Date V isits Requested Visits Authorized [id number] Closed Auto-Generate d Referral 01/16/2023 02/15/2024 1 1 Reason Comments Follow Up Reason Comments Patient Question Reason Comments Short Term Disability paperwork Reason Comments Established Patient Reason Comments Restriction form Reason Comments Established Patient Specialty Diagnoses / Procedures Referred By Contac t Referred To Contact Diagnoses S/P lumbar laminectomy Procedures PROVIDER ORDERED FOLLOW UP OFFICE/OUTPATIENT [facility] 60-74 MINUTES Keon Todd PA-C [address] [place] [address] Referral ID Status Reason Start Date Expiration Date V isits Requested Visits Authorized [id number] Closed PCP Requested Referral 06/26/2023 05/27/2024 1 1 Reason Comments Return To Work Letter Care Teams (unrecognized sec tion and content) 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 Start Date End Date Wendy Daniel MD [address] [place] [address] Referring Family Medicine 01/16/23 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 Start Date End Date Wendy Daniel MD [address] [place] [address] Referring Family Medicine 01/16/23 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 Start Date End Date Wendy Daniel MD [address] [place] [address] Referring Family Medicine 01/16/23 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 Start Date End Date Wendy Daniel MD Referring Family Medicine 01/16/23 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 Start Date End Date Hoy, Wendy M, MD Referring Family Medicine 01/16/23 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 Start Date End Date Wendy Daniel MD [address] [place] [facility] [address] PCP - General Family Medicine 03/09/23 Wendy Daniel MD Referring Family Medicine 01/16/23 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 Start Date End Date Wendy Daniel MD [address] [place] [facility] [address] PCP - General Family Medicine 03/09/23 Wendy Daniel MD Referring Family Medicine 01/16/23 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 Start Date End Date Wendy Daniel MD [address] [place] [facility] [address] PCP - General Family Medicine 03/09/23 Wendy Daniel MD Referring Family Medicine 01/16/23 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 Start Date End Date Wendy Daniel MD [address] [place] [facility] [address] PCP - General Family Medicine 03/09/23 Wendy Daniel MD Referring Family Medicine 01/16/23 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 Start Date End Date Wendy Daniel MD [address] [place] [facility] [address] PCP - General Family Medicine 03/09/23 Wendy Daniel MD Referring Family Medicine 01/16/23 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 Start Date End Date Wendy Daniel MD [address] [place] [address] PCP - General Family Medicine 03/09/23 Wendy Daniel MD Referring Family Medicine 01/16/23 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 Start Date End Date Wendy Daniel MD [address] [place] [address] PCP - General Family Medicine 03/09/23 Wendy Daniel MD Referring Family Medicine 01/16/23 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 Start Date End Date Wendy Daniel MD [address] [place] [address] PCP - General Family Medicine 03/09/23 Wendy Daniel MD Referring Family Medicine 01/16/23 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 Start Date End Date Wendy Daniel MD [address] [place] [address] PCP - General Family Medicine 03/09/23 Wendy Daniel MD Referring Family Medicine 01/16/23 Team Status: Active Member Role Status Dates Wendy Daniel MD Primary Care Provider Active Team Status: Inactive Member Role Status Dates Essie Toscano MD Attending Provider Active Wendy Daniel MD Primary Care Provider Active (unrecognized sect ion and content) No Status Records FoundNo Status Records FoundNo Status Records FoundNo Status Records FoundNo Status Records Found INFORMATION SOURCE (unrecogn ized section and content) DATE CREATED AUTHOR 02/28/2023 [facility] DATE CREATED AUTHOR AUTHOR'S ORGANIZ ATION 05/06/2023 [facility] DATE CREATED AUTHOR AUTHOR'S ORGANIZ ATION 06/30/2023 [facility] DATE CREATED AUTHOR AUTHOR'S ORGANIZ ATION 08/01/2023 [facility] DATE CREATED AUTHOR AUTHOR'S ORGANIZ ATION 08/12/2023 [facility] FOR RECORDS PERTAINING TO PATIENTS WHO ARE OR HAVE BEEN ENROLLED IN A CHEMICAL DEPENDENCY/SUBSTANCEABUSE PROGRAM, SOME INFORMATION MAY BE OMITTED. This clinical summary was aggregated from multiple sources. Caution should be exercised in using it in the provision of clinical care. This summary normalizes information from multiple sources, and as a consequence, information in this document may materially change the coding, format and clinical context of patient data. In addition, data may be omitted in some cases. CLINICAL DECISIONS SHOULD BE BASED ON THE PRIMARY CLINICAL RECORDS. [facility] to be [facility]. provides no warranty or guarantee of the accuracy or completeness of information in this document.
[2024-03-07 09:42] LABS: Basophils Absolute Auto 0.1 10^3/uL (0.0-0.1); Basophils Percent Auto 0.6 % (0.2-2.0); Eosinophils Absolute Auto 0.3 10^3/uL (0.0-0.7); Hematocrit 51.7 % (42.0-54.0); Hemoglobin 17.4 g/dL (14.0-18.0); Immature Granulocytes Abs Auto 0.01 10^3/uL (0.00-0.03); Immature Granulocytes Pct Auto 0.1 % (0.0-0.5); Lymphocytes Absolute Auto 2.7 10^3/uL (1.2-3.8); Lymphocytes Percent Auto 31.4 % (20.5-60.0); Mean Corpuscular HGB Conc 33.7 g/dL (29.9-35.2); Mean Corpuscular Hemoglobin 32.5 pg (25.9-34.0); Mean Corpuscular Volume 96.5 fL (80.0-94.0); Mean Platelet Volume 9.1 fL (9.5-13.5); Monocytes Absolute Auto 0.6 10^3/uL (0.3-0.8); Neutrophils Absolute Auto 4.9 10^3/uL (1.4-6.5); Neutrophils Percent Auto 56.9 % (43.0-75.0); Platelet Count 294 10^3/uL (150-450); Red Blood Count 5.36 10^6/uL (4.70-6.10); Red Cell Distribution Width 13.1 % (11.0-15.0); White Blood Count 8.5 10^3/uL (4.0-11.0)
[2024-03-07 11:11] LABS: Alanine Aminotransferase 29 U/L (16-63); Albumin Globulin Ratio 0.9; Albumin Level 3.6 g/dL (3.4-5.0); Alkaline Phosphatase 98 U/L (46-116); Anion Gap 14.8; Aspartate Amino Transferase 24 U/L (15-37); BUN Creatinine Ratio 14.6; Bilirubin Total 0.5 mg/dL (0.2-1.0); Calcium 9.2 mg/dL (8.5-10.1); Carbon Dioxide 25.9 mmol/L (21.0-32.0); Chloride 105 mmol/L (98-107); Chol HDL Ratio 3.2; Cholesterol 174 mg/dL (<=200); Estimated GFR (African America >60 (>=60); Estimated GFR (Non-African Ame >60 (>=60); Free T3 2.35 pg/mL (2.18-3.98); Glucose 99 mg/dL (74-106); HDL Cholesterol 55 mg/dL (40-60); LDL Cholesterol Calculated 113.2 mg/dL; Potassium 4.7 mmol/L (3.5-5.1); Sodium 141 mmol/L (136-145); Thyroid Stimulating Hormone 1.579 uIU/mL (0.358-3.740); Total Protein 7.6 g/dL (6.4-8.2); Triglycerides 29 mg/dL (<=150); VLDL CHOLESTEROL 5.8 mg/dL
[2024-03-07 11:21] LABS: Prostate Specific Antigen Scrn 1.33 ng/mL (<=4.00)
[2024-03-07 15:12] LABS: Estimated Average Glucose 105 mg/dL; Glycohemoglobin A1C 5.3 % (4.5-6.2)
== END 2024-03-07 09:16 | disposition home or self-care (01) ==
PROVIDERS: PCP Family Medicine; Visit Provider Family Medicine
DX: Z00.00 Encounter for general adult medical examination without abnormal findings (principal); E78.5 Hyperlipidemia, unspecified; R73.09 Other abnormal glucose; Z12.5 Encounter for screening for malignant neoplasm of prostate
CPT/HCPCS: 36415; 80053; 80061; 83036; 84436; 84443; 84481; 85025; G0103

== ENCOUNTER 2025-03-10 08:28 | Outpatient (OUT) | payer BC, SELFPAY ==
--- OUTSIDE RECORDS SUMMARY | 2025-03-10 08:32 | XMS_ITS | CCD ---
Author Organization [facility] Providers Care 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 Name Role Phone Wendy Daniel MD Unavailable Wendy Daniel Primary Care Physician Wendy Daniel MD Unavailable MARÍA ., DR NGUYEN Consulting Unavailable HOY ., DR NGUYEN Primary Care Unavailable HOY ., DR NGUYEN Admitting Unavailable HOY ., DR NGUYEN Attending Unavailable ZIEBER, DR MAURICE Holly Consulting Unavailable HOY ., DR NGUYEN Admitting Unavailable HOY ., DR NGUYEN Consulting Unavailable HOY ., DR NGUYEN Primary Care Unavailable HOY ., DR NGUYEN Attending Unavailable LINCOLN, DR DAYANARA Harrison Consulting Unavailable DAYANARA ALVAREZ [...] Holly Consulting Unavailable HOY ., DR NGUYEN Admconrad [...] WEINSTEIN Consulting Unavailable HOY ., DR NGUYEN Admitting Unavailable HOY ., DR NGUYEN Consulting Unavailable HOY ., DR NGUYEN Primary Care Unavailable HOY ., DR NGUYEN Attending Unavailable Hoy MD, Wendy M Primary Care Provider [phone] Wendy Daniel MD Attending Unavaila ble WENDY DANIEL Primary Care Unavailable PELLE, CLIFF Referring Unavailable BONUS, KOEN Attending Unavailable WENDY DANIEL Primary Care Unavailable PELLE, CLIFF Referring Unavailable WENDY DANIEL Primary Care Unavailable JESE, ETHEL Referring Unavailable WENDY DANIEL Primary Care Unavailable PELLE, CLIFF Referring Unavailable PELLE, CLIFF Referring Unavailable PELLE, CLIFF Attending Unavailable GRANADO, NICHOLE Referring Unavailable GRANADO, NICHOLE Attending Unavailable BONUS, KEON Attending Unavailable BONUS, KEON Referring Unavailable WENDY DANIEL Primary Care Unavailable PELLE, CLIFF Attending Unavailable PELLE, CILFF Admitting Unavailable PELLE, CLIFF Referring Unavailable JOSE ENRIQUEWENDY Arriaza Primary Care Unavailable BONUS, KEON Attending Unavailable MD Essie Toscano Attending Provider [phone] MD Wendy Daniel Primary Care Provider [phone] Wendy Daniel Primary Care Unavailable Asaad, Imad Attending Unavailable Asaad, Imad Admitting Unavailable NILGayla Mishra Attending Unavailable NILL, Gayla Holly Attending Unavailable NILL, Gayla Holly Attending Unavailable [...] on above: Take 1 capsule by mo [facility] three times daily for 30 days. oxaprozin 600 mg oral tablet (8 sources) Nonsteroidal Anti-inflammatory Drug Start: 07-22-2023 take 600 mg by mouth once daily Oxaprozin Active 600 MG PO Daily July 22, 2023 12:00am Start: 01-01-2023 take 2 tablets by mo [facility] once daily oxaprozin (DAYPRO) 600 mg tablet [...] Range Facility Outside Colonoscopyon 2022 Outside Colonoscopy [id number]#1 .00CD:127 Normal [facility] Pathology Noteon 08-11-2023 Pathology Note [id number] 1.00CD:127 [facility] Son 07-22-2023 L - -------- Specimen: [id number] Received: 07/22/23 Status: ARIEL Henriquez Num: [id number] Spec Type: Surgical Subm Dr: Essie Toscano MD Tissues: A Colon Biopsy (CECAL POLYP) B Colon Biopsy (ASCENDING COLON POLYP) C Colon Biopsy (SIGMOID POLYP) D Colon Biopsy (RECTAL POLYP) Procedures: HE/8, Gross/Micro L4/4 -------- Age/ Patient Sex Location Account Attending Physician -------- Mimi Villasenor /[facility] [id number] Essie Toscano MD -------- SPEC NUM: [id number] RECD: 07/22/23 STATUS: ARIEL HENRIQUEZ NUM: [id number] EDUARDO: 07/22/23-[address] [facility] [address]: Essie Toscano MD ENTERED: 07/22/[address] [facility] [address]: PAYTON TYPE: Surgical DEPT: S ENTERED BY: [id number] RECV BY: [id number] ORDERED: HE/8, Gross/Micro L4/4 ORDERED: HE/8, Gross/Micro [...] Malignancy. Clinical Information Colon polyps -------- Specimen: [id number] Received: 07/22/23 Status: ARIEL Henriquez Num: [id number] Spec Type: Surgical Subm Dr: Essie Toscano MD Tissues: A Colon Biopsy (CECAL POLYP) B Colon Biopsy (ASCENDING COLON POLYP) C Colon Biopsy (SIGMOID POLYP) D Colon Biopsy (RECTAL POLYP) Procedures: Bhaskar, Gross/Micro L4/4 -------- Patient: Mimi Villasenor [id number] (Continued) -------- Specimen: [id number] Received: 07/22/23 (Continued) Signed (signature on file) Jammie Meraz MD 07/30/23 2304 -------- Specimen: [id number] Received: 07/22/23 Status: ARIEL Henriquez Num: [id number] Spec Type: Surgical Subm Dr: Essie Toscano MD Tissues: A Colon Biopsy (CECAL POLYP) B Colon Biopsy (ASCENDING COLON POLYP) C Colon Biopsy (SIGMOID POLYP) D Colon Biopsy (RECTAL POLYP) Procedures: HE/Bhaskar, Gross/Micro L4/4 -------- Patient: Mimi Villasenor [id number] (Continued) -------- Specimen: [id number] Received: 07/22/23 (Continued) Gross Description A. Received [...] microscopic examination confirms the diagnosis. CPT Codes 68751w3 -------- -------- Specimen: [id number] Received: 07/22/23 Status: ARIEL Olmoscharbel Num: [id number] Spec Type: Surgical Subm Dr: Essie Toscano MD Tissues: A Colon Biopsy (CECAL POLYP) B Colon Biopsy (ASCENDING COLON POLYP) C Colon Biopsy (SIGMOID POLYP) D Colon Biopsy (RECTAL POLYP) Procedures: HE/Bhaskar, Gross/Micro L4/4 -------- Patient: Mimi Villasenor [id number] (Continued) --------- (more content not included)... [facility] Cherrie 06-26-2023 CNPN Telephone (SPNSMN) MIMI VILLASENOR ([id number]) 1965 M BMD Date Time Provider Department 06/26/23 CLIFF GOMES During your visit today, we recorded the following information about you: Brittany Apple 06/26/2023 3:54 PM Signed Return to work letter faxed to: Akhil Cornelius And to: Attn: Tierra Confirmation received for both. Fidelia Adams 06/29/2023 5:00 PM Signed Fax and confirmed RTW letter to the updated fax number for HR Mayorga [phone] Allergies As of Date: 06/26/2023 (No Known Allergies) Date Reviewed: 03/27/2023 Reviewed by: Maddie Kay, CHRISTEN - Fully Assessed Reason for Visit: Return To Work Letter [2356] Prescriptions as of 06/29/2023 - methocarbamol (ROBAXIN) 500 mg tablet Take 1 tablet by mouth three times daily as needed for up to 28 doses. - tamsulosin (FLOMAX) 0.4 mg Take by mouth. Problem List As Of Date 06/26/2023 Noted Resolved Benign prostatic hyperplasia [N40.0] 02/26/2023 Current smoker [F17.200] 02/26/2023 Alcohol abuse [F10.10] 03/10/2023 Encounter Status:Closed by BRITTANY APPLE on 06/26/23 [facility] Cherrie 06-01-2023 ROMÁN Telephone (NICharbel) MIMI VILLASENOR ([id number]) 1965 M [place] Date Time Provider Department 06/01/23 KEON TODD During your visit today, we recorded the following information about you: Chyna Cpht, Claudia 06/01/2023 3:10 PM Signed received Restrictions form- given to VLAD team to process. Peace Toney LPN 06/01/2023 4:05 PM Signed Received, Reviewed [employer] [facility] forms and need signed by Dr. Gomes Placed on BIRGIT Soto's [place], to get signed and fax/scan to patient chart Leave dates: 03/27/23-TBD Per Keon Todd note 05/28/23: He has a physical job. We discussed plan of starting PT and in 4 weeks we will evaluate for RTW. Follow up scheduled for 06/26/23. VLAD Lee Suzanna 06/10/2023 1:17 PM Signed Restrictions form completed, signed and faxed to: [employer] Confirmation received, copy scanned to chart. Allergies [...] Encounter Status:Closed by BRITTANY APPLE on 06/10/23 [facility] HAMILTONMIMI OLSON Komal ([id number]) 1965 M BMD Date Time Provider Department 05/07/23 CLIFF GOMES During your visit today, we recorded the following information about you: Jessy Apodaca Motor Vehicle Compliance Analyst 05/07/2023 12:25 PM Signed Patient is calling to know if he can start doing some yard work like riding his horse buyer anything light he can do around the home call back [phone] Yaya Coronel RN 05/07/2023 1:22 PM Signed Neuro SPINE CARE COORDINATION QUICK NOTE SERVICE DATE: 04/10/2023- YOUNG with Keon BRITO SURGERY DATE: 03/27/23 L3-4 laminectomy Call to the pt to clarify 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 All post op restrictions have been reviewed at length Allergies As of Date: 05/07/2023 (No Known Allergies) Date Reviewed: 03/27/2023 Reviewed by: Maddie Kay, CHRISTEN - Fully Assessed Reason for Visit: Patient Question [5727] Prescriptions as of 05/07/2023 - methocarbamol (ROBAXIN) 500 mg tablet Take 1 tablet by mouth three times daily as needed for up to 28 doses. - tamsulosin (FLOMAX) 0.4 mg Take by mouth. Problem List As Of Date 05/07/2023 Noted Resolved Benign prostatic hyperplasia [N40.0] 02/26/2023 Current smoker [F17.200] 02/26/2023 Alcohol abuse [F10.10] 03/10/2023 Encounter Status:Closed by YAYA CORONEL on 05/07/23 [facility] Cherrie 04-27-2023 ROMÁN Telephone (NIQ) MIMI VILLASENOR ([id number]) 1965 M BMD Date Time Provider Department 04/27/23 CLIFF GOMES During your visit today, we recorded the following information about you: Jessy Apodaca Motor Vehicle Compliance Analyst 04/27/2023 9:29 AM Signed Received 3 pages for patient Short Term Disability from [facility] requesting more information (medical) gave to [facility]'s Zuleima/Dia for review Yaya Coronel RN 04/27/2023 [...] Encounter Status:Closed by YAYA CORONEL on 04/27/23 [facility] Cherrie 04-24-2023 [facility] Telephone (NIQ) MIMI VILLASENOR ([id number]) 1965 M BMD Date Time Provider Department 04/24/23 CLIFF GOMES During your visit today, we recorded the following information about you: Claudia Clemente Cpht 04/24/2023 10:29 AM Signed pt had surgery on 03/27. Pt scheduled for colonoscopy scheduled, pt would like to discuss with RN if its okay to have colonoscopy post -op. Call back: [phone] Yaya Coronel RN 04/24/2023 11:47 AM Addendum Neuro SPINE CARE COORDINATION POST OP FOLLOW UP SURGERY/PROCEDURE: L3-L4 decompressive lumbar laminectomy, medial facetectomy, foraminotomy.( 03/27/23) No LE symptoms- minimal LBP only - he continues to ice. He will scheduled his colonoscopy Pt is requesting updated [employer] forms to confirm his work date. His HR is stating that his RTW is today No RTW date has been decided Next follow up on 05-28-23 Form updated with [employer]- this will be refaxed. CHRISTEN Armijo LPN 04/24/2023 12:01 PM Signed Forms reviewed and revised. Per Yaya RTW will be determined at next office visit 05/28/23. Gave forms to Johanna to have provider review and sign and fax back. Brittany Leander [facility] 04/24/2023 2:54 PM Signed Revised forms faxed to: [employer] Confirmation received. Allergies As of Date: 04/24/2023 [...] Encounter Status:Closed by YAYA CORONEL on 04/24/23 [facility] Cherrie 04-10-2023 CNPN Telephone (SPNSMN) MIMI VILLASENOR ([id number]) 1965 [facility] Date Time Provider Department 04/10/23 KEON [...] Encounter Status:Closed by KEON TODD on 04/10/23 [facility] ANES POSTPROC EVALon 023 ANES POSTPROC EVAL HNO ID: [id number] Author: Luis Barreto MD Service: ? Author [...] March 27, 2023 TIME: 9:52 AM CSN: [id number] Normal [facility] ANES PRE-OPon 03-27-2023 ANES PRE-OP HNO ID: [id number] Author: Luis Barreto MD Service: ? Author Type: Anesthesiologist Type: Anesthesia Preprocedure Evaluation Filed: 03/27/2023 7:45 AM Note Text: ANESTHESIOLOGY DAY OF SURGERY NOTE : 1965 Procedure Information Date/Time: 03/27/23729 Procedure: DECOMPRESSION LAMINECTOMY LUMBAR POSTERIOR LEVEL 1 (Spine levels L2-L3-L4) Location: [address] [facility] Surgeons: Cliff Gomes MD [...] Pulse 74 03/27/23 0602 Resp 16 03/27/23 06 Temp 36.1 ?C (97 ?F) 03/27/23 06 SpO2 97 % 03/27/23 06 Facility-Administered Medications as of 03/27/2023 Medication Dose [...] March 27, 2023 TIME: 7:13 AM CSN: [id number] [facility] BRIEF OP NOTon 03-27-2023 BRIEF OP NOT HNO ID: [id number] Author: Cliff Gomes MD Service: Neurosurgery Author Type: Physician Type: Brief Op Note Filed: 04/14/2023 2:47 PM Note Text: BRIEF OPERATIVE / PROCEDURE NOTE LOG ID: [id number] Surgery/Procedure Date: 03/27/2023 Incision/Procedure Start Time: 8:13 AM Incision Close/Procedure End Time: 9:26 AM Surgeon(s)/Procedural ist(s) and Embossing Toolsetter(s): Surgeon(s) and Role: * Cliff Gomes MD - Primary * Lino Plasencia MD - Resident - Assisting * Carliots Person MD - Fellow Procedure(s): Procedure(s) (LRB): DECOMPRESSION LAMINECTOMY LUMBAR POSTERIOR LEVEL 1 (N/A) Anesthesia: General Approach: Posterior Findings: see dictation Estimated Blood Loss: 50cc Specimens: None Complications: None Pre-Op/Pre-Procedure Diagnosis: Lumbar radiculopathy [M54.16] Pre-op testing [Z01.818] Post-Op/Post-Procedur e Diagnosis: * No post-op diagnosis entered * SIGNATURE: Cliff Gomes MD PATIENT NAME: Mimi Villasenor DATE: April 14, 2023 TIME: 2:47 PM PAGER/CONTACT #: [facility] OPERATIVE NOon 03-27-2023 OPERATIVE NO HNO ID: [id number] Author: Cliff Gomes MD Service: Neurosurgery Author Type: Physician Type: Operative Report Filed: 04/15/2023 7:27 AM Note Text: [facility] - Operative Report [address] [address] [place] HAMIL[place]IMI : 1965 AGE: 57. SEX: M PATIENT TYPE: A HOSP SVC: [facility] LOCATION: [place] [address] ATTENDING PHYSICIAN: Cliff Gomes M.D. CSN NUMBER: [id number] DATE OF SURGERY/PROCEDURE: 03/27/2023 INCISION/PROCEDURE START TIME: 08:13 a.m. INCISION CLOSE/PROCEDURE END TIME: 09:26 a.m. PREOPERATIVE DIAGNOSIS: Lumbar radiculopathy, neurogenic claudication due to lumbar spinal stenosis. POSTOPERATIVE DIAGNOSIS: Lumbar radiculopathy, neurogenic claudication due to lumbar spinal stenosis. SURGEON: Cliff Gomes M.D. MAKE READY MECHANIC: 1. Dr. Carlitos Person. Dr. Person assisted in the absence of a qualified [...] opening, closing, which was done by Dr. ePrson under my direct supervision. Cliff Gomes M.D. DP:[id number] /[id number] Normal [facility] XR LUMBAR SPECIFY 1Von 03-27 XR LUMBAR [...] neural foramen. IMPRESSION: Radiograph for intraoperative guidance Street Cleaner: [facility] Transcribe Date/Time: Mar 27 2023 8:56A Dictated by : LIZZIE LAWRENCE MD This examination was interpreted and the report reviewed and electronically signed by: LIZZIE LAWRENCE MD on Mar 27 2023 8:57AM EST [id number] Normal [facility] XR LUMBAR SPECIFY 1V * * *Final [...] abnormality IMPRESSION: Preincisional radiograph for operative guidance Street Cleaner: [facility] Transcribe Date/Time: Mar 27 2023 8:31A Dictated by : LIZZIE LAWRENCE MD This examination was interpreted and the report reviewed and electronically signed by: LIZZIE LAWRENCE MD on Mar 27 2023 8:36AM EST [id number] Normal [facility] XR VERIFY LEVEL [id number]-[id number] 03-27-2023 XR VERIFY LEVEL L-SPINE-NB * * [...] on 03/27/2023 8:23 AM via verbal communication. Street Cleaner: [facility] Transcribe Date/Time: Mar 27 2023 8:22A Dictated by : LIZZIE LAWRENCE MD This examination was interpreted and the report reviewed and electronically signed by: LIZZIE LAWRENCE MD on Mar 27 2023 8:23AM EST [id number] Normal [facility] CNNURSEon 03-18-2023 CNNURSE Nurse Visit (SPNSMN) MIMI VILLASENOR ([id number]) 1965 M BMD Date Time Provider Department [...] and post op restrictions. Provided to patient: [facility] Surgery Guide, skin prep supplies, Spine Surgery Pre/post op education packet. Yes Reviewed with patient to report to desk [employer] for surgery ? Yes. Reviewed with the patient to call [phone] the day before to get surgery report [...] Dia Covarrubias LPN Referring Provider: CLIFF GOMES [[id number]] Allergies As of Date: 03/18/2023 (No Known Allergies) Date Reviewed: 03/10/2023 Reviewed by: Ethel Ingram APRN.CRIMINAL INVESTIGATOR - Fully Assessed Primary Visit Diagnosis:Educational circumstance [Z55.9] Prescriptions as of 03/18/2023 - tamsulosin (FLOMAX) 0.4 mg Take by mouth. Problem List As Of Date 03/18/2023 Noted Resolved Benign prostatic hyperplasia [N40.0] 02/26/2023 Current smoker [F17.200] 02/26/2023 Alcohol abuse [F10.10] 03/10/2023 Encounter Status:Closed by DIA COVARRUBIAS on 03/18/23 Normal [facility] Cherrie 03-11-2023 CNPN Telephone (SPNSMN) MIMI VILLASENOR ([id number]) 1965 M [facility] Date Time Provider Department 03/11/23 CLIFF GOMES SPNSMN During your visit today, we recorded the following information about you: Brittany Kingston 03/11/2023 10:11 AM Signed Restrictions Form and Attending Physician's Statement completed and faxed to: [employer] Confirmation received and copy scanned to chart. Allergies As of Date: 03/11/2023 (No Known Allergies) Date Reviewed: 03/10/2023 Reviewed by: Ethel Ingram APRN.CRIMINAL INVESTIGATOR - Fully Assessed Reason for Visit: Forms [...] Encounter Status:Closed by BRITTANY APPLE on 03/11/23 [facility] Basic metabolic 2000 panelon 03-10-2023 Anion gap [Moles/Vol] 12 mmol/L Normal 9-18 [facility] Comment on above: Order Comment: Speci men Type: BLOOD SPECIMEN Ordering Facility: [facility] Address: [address] [place] [address] Performed By: #### 2 4321-2 #### [facility] CLIA [id number] [address] [place] [address] [place] Calcium [Mass/Vol] 9.4 mg/dL Normal 8.5-10.2 [facility] Comment on above: Order Comment: Speci men Type: BLOOD SPECIMEN Ordering Facility: [facility] Address: [address] [place], [place] [address] Performed By: #### 2 4321-2 #### [facility] CLIA [id number] [address] [place] [address] [place] Chloride [Moles/Vol] 107 mmol/L High 97-105 [facility] Comment on above: Order Comment: Speci men Type: BLOOD SPECIMEN Ordering Facility: [facility] Address: [address] [place] [address] Performed By: #### 2 4321-2 #### [facility] CLIA [id number] [address] [place] [address] [place] CO2 [Moles/Vol] 22 mmol/L Normal 22-30 [facility] Comment on above: Order Comment: Speci men Type: BLOOD SPECIMEN Ordering Facility: [facility] Address: [address] [place], [place] [address] Performed By: #### 2 4321-2 #### [facility] CLIA [id number] [address] [place] [address] [place] Creatinine [Mass/Vol] 0.62 mg/dL Low 0.73-1.22 [facility] Comment on above: Order Comment: Speci men Type: BLOOD SPECIMEN Ordering Facility: [facility] Address: [address] [place], [place] [address] Performed By: #### 2 4321-2 #### [facility] CLIA [id number] [address] [place] [address] [place] ESTIMATED GLOMERULAR FILTRATION RATE 111 mL/min/1.73m??? Normal >=60 [facility] Comment on above: Order Comment: Ciara reinoso Type: BLOOD SPECIMEN Ordering Facility: [facility] Address: [address] [address] Result Comment: Gabrielle mated Glomerular Filtration Rate [...] GFR. Performed By: #### 2 4321-2 #### [facility] CLIA [id number] [address] [place] [address] [place] Glucose [Mass/Vol] 86 mg/dL Normal 74-99 [facility] Comment on above: Order Comment: Ciara reinoso Type: BLOOD SPECIMEN Ordering Facility: [facility] Address: [address] [address] Result Comment: The [place] Diabetes Association (ADA) provides guidance for cutoff [...] Standards of Medical Care in Diabetes 2016, [place] [employer] Association. Diabetes Care. 2016.39(Suppl 1). Performed By: #### 2 4321-2 #### [facility] CLIA [id number] [address] [place] [address] [place] Potassium [Moles/Vol] 3.9 mmol/L Normal 3.7-5.1 [facility] Comment on above: Order Comment: Ciara reinoso Type: BLOOD SPECIMEN Ordering Facility: [facility] Address: [address] Performed By: #### 2 4321-2 #### [facility] CLIA [id number] [address] [place] [address] [place] Sodium [Moles/Vol] 141 mmol/L Normal 136-144 [facility] Comment on above: Order Comment: Speci men Type: BLOOD SPECIMEN Ordering Facility: [facility] Address: [address] [address] Performed By: #### 2 4321-2 #### [facility] CLIA [id number] [address] [place] [address] [place] Urea nitrogen [Mass/Vol] 8 mg/dL Low 9-24 [facility] Comment on above: Order Comment: Speci men Type: BLOOD SPECIMEN Ordering Facility: [facility] Address: [address] Performed By: #### 2 4321-2 #### [facility] CLIA [id number] [address] [place] [address] [place] CBC W Auto Differential pane l (Bld)on 03-10-2023 Basophils (Bld) [#/Vol] 0.05 10*3/uL Normal <0.11 [facility] Comment on above: Order Comment: Speci men Type: SWAB OF INTERNAL NOSE Ordering Facility: [facility] Address: [address] Performed By: #### S APCR #### [facility] CLIA [id number] [address] [place] [address] [place] Basophils/100 WBC (Bld) 0.4 % Normal [facility] Comment on above: Order Comment: Speci men Type: SWAB OF INTERNAL NOSE Ordering Facility: [facility] Address: [address] Performed By: #### S APCR #### [facility] CLIA [id number] [address] [place] [address] [place] Differential cell count method Nom (Bld) Auto Normal [facility] Comment on above: Order Comment: Speci men Type: SWAB OF INTERNAL NOSE Ordering Facility: [facility] Address: [address] [place] [address] Performed By: #### S APCR #### [facility] CLIA [id number] [address] [place] [address] [place] Eosinophils (Bld) [#/Vol] 0.10 10*3/uL Normal <0.46 [facility] Comment on above: Order Comment: Speci men Type: SWAB OF INTERNAL NOSE Ordering Facility: [facility] Address: [address] [place] [address] Performed By: #### S APCR #### [facility] CLIA [id number] [address] [place] [address] [place] Eosinophils/100 WBC (Bld) 0.9 % Normal [facility] Comment on above: Order Comment: Speci men Type: SWAB OF INTERNAL NOSE Ordering Facility: [facility] Address: [address] [place], [place] [address] Performed By: #### S APCR #### [facility] CLIA [id number] [address] [place] [address] [place] Erythrocyte distribution width (RBC) [Ratio] 13.2 % Normal 11.5-15.0 [facility] Comment on above: Order Comment: Speci men Type: SWAB OF INTERNAL NOSE Ordering Facility: [facility] Address: [address] [place], [place] [address] Performed By: #### S APCR #### [facility] CLIA [id number] [address] [place] [address] [place] Hematocrit (Bld) [Volume fraction] 47.4 % Normal 39.0-51.0 [facility] Comment on above: Order Comment: Speci men Type: SWAB OF INTERNAL NOSE Ordering Facility: [facility] Address: [address] Performed By: #### S APCR #### [facility] CLIA [id number] [address] [place] [address] [place] Hemoglobin (Bld) [Mass/Vol] 15.9 g/dL Normal 13.0-17.0 [facility] Comment on above: Order Comment: Speci men Type: SWAB OF INTERNAL NOSE Ordering Facility: [facility] Address: [address] Performed By: #### S APCR #### [facility] CLIA [id number] [address] [place] [address] [place] Immature granulocytes (Bld) [#/Vol] 0.03 10*3/uL Normal <0.10 [facility] Comment on above: Order Comment: Speci men Type: SWAB OF INTERNAL NOSE Ordering Facility: [facility] Address: [address] Performed By: #### S APCR #### [facility] CLIA [id number] [address] [place] [address] [place] Immature granulocytes/100 WBC (Bld) 0.3 % Normal [facility] Comment on above: Order Comment: Speci men Type: SWAB OF INTERNAL NOSE Ordering Facility: [facility] Address: [address] [place] [address] Performed By: #### S APCR #### [facility] CLIA [id number] [address] [place] [address] [place] Lymphocytes (Bld) [#/Vol] 2.60 10*3/uL Normal 1.00-4.00 [facility] Comment on above: Order Comment: Speci men Type: SWAB OF INTERNAL NOSE Ordering Facility: [facility] Address: [address] [place], [place] [address] Performed By: #### S APCR #### [facility] CLIA [id number] [address] [place] [address] [place] Lymphocytes/100 WBC (Bld) 23.1 % Normal [facility] Comment on above: Order Comment: Speci men Type: SWAB OF INTERNAL NOSE Ordering Facility: [facility] Address: [address] [place], [place] [address] Performed By: #### S APCR #### [facility] CLIA [id number] [address] [place] [address] [place] MCH (RBC) [Entitic mass] 32.9 pg Normal 26.0-34.0 [facility] Comment on above: Order Comment: Speci men Type: SWAB OF INTERNAL NOSE Ordering Facility: [facility] Address: [address] [place], [place] [address] Performed By: #### S APCR #### [facility] CLIA [id number] [address] [place] [address] [place] MCHC (RBC) [Mass/Vol] 33.5 g/dL Normal 30.5-36.0 [facility] Comment on above: Order Comment: Speci men Type: SWAB OF INTERNAL NOSE Ordering Facility: [facility] Address: [address] [place], [place] [address] Performed By: #### S APCR #### [facility] CLIA [id number] [address] [place] [address] [place] MCV (RBC) [Entitic vol] 97.9 fL Normal 80.0-100.0 [facility] Comment on above: Order Comment: Speci men Type: SWAB OF INTERNAL NOSE Ordering Facility: [facility] Address: [address] [place], [place] [address] Performed By: #### S APCR #### [facility] CLIA [id number] [address] [place] [address] [place] Monocytes (Bld) [#/Vol] 0.57 10*3/uL Normal <0.87 [facility] Comment on above: Order Comment: Speci men Type: SWAB OF INTERNAL NOSE Ordering Facility: [facility] Address: [address] [place], [place] Performed By: #### S APCR #### [facility] CLIA [id number] [address] [place] [address] [place] Monocytes/100 WBC (Bld) 5.1 % Normal [facility] Comment on above: Order Comment: Speci men Type: SWAB OF INTERNAL NOSE Ordering Facility: [facility] Address: [address] [place] [address] Performed By: #### S APCR #### [facility] CLIA [id number] [address] [place] [address] [place] Neutrophils (Bld) [#/Vol] 7.89 10*3/uL High 1.45-7.50 [facility] Comment on above: Order Comment: Speci men Type: SWAB OF INTERNAL NOSE Ordering Facility: [facility] Address: [address] [place], [place] Performed By: #### S APCR #### [facility] CLIA [id number] [address] [place] [address] [place] Neutrophils/100 WBC (Bld) 70.2 % Normal [facility] Comment on above: Order Comment: Speci men Type: SWAB OF INTERNAL NOSE Ordering Facility: [facility] Address: [address] [place], [place] Performed By: #### S APCR #### [facility] CLIA [id number] [address] [place] [address] [place] Nucleated RBC (Bld) [#/Vol] 10*3/uL Normal <0.01 [facility] Comment on above: Order Comment: Speci men Type: SWAB OF INTERNAL NOSE Ordering Facility: [facility] Address: [address] [place], [place] Performed By: #### S APCR #### [facility] CLIA [id number] [address] [place] [address] [place] Nucleated RBC/100 WBC (Bld) [Ratio] 0.0 /100 WBC Normal [facility] Comment on above: Order Comment: Speci men Type: SWAB OF INTERNAL NOSE Ordering Facility: [facility] Address: [address] [place], [place] [address] Performed By: #### S APCR #### [facility] CLIA [id number] [address] [place] [address] [place] Platelet mean volume (Bld) [Entitic vol] 9.5 fL Normal 9.0-12.7 [facility] Comment on above: Order Comment: Speci men Type: SWAB OF INTERNAL NOSE Ordering Facility: [facility] Address: [address] [place], [place] [address] Performed By: #### S APCR #### [facility] CLIA [id number] [address] [place] [address] [place] Platelets (Bld) [#/Vol] 333 10*3/uL Normal 150-400 [facility] Comment on above: Order Comment: Speci men Type: SWAB OF INTERNAL NOSE Ordering Facility: [facility] Address: [address] [place] [phone] Performed By: #### S APCR #### [facility] CLIA [id number] [address] [place] [address] [place] RBC (Bld) [#/Vol] 4.84 10*6/uL Normal 4.20-6.00 [facility] Comment on above: Order Comment: Speci men Type: SWAB OF INTERNAL NOSE Ordering Facility: [facility] Address: [address] [place], [place] [address] Performed By: #### S APCR #### [facility] CLIA [id number] [address] [place] [address] [place] WBC (Bld) [#/Vol] 11.24 10*3/uL High 3.70-11.00 [facility] Comment on above: Order Comment: Speci men Type: SWAB OF INTERNAL NOSE Ordering Facility: [facility] Address: [address] [place] [address] Performed By: #### S APCR #### [facility] CLIA [id number] [address] [place] CONFIRM BLOOD TYPEon 023 ABO O Normal [facility] Comment on above: Order Comment: Speci men Type: SWAB OF INTERNAL NOSE Ordering Facility: [facility] Address: [address] [place] [address] Performed By: #### S APCR #### [facility] CLIA [id number] [address] [place] [address] [place] Rh Nom (Bld) Negative Normal [facility] Comment on above: Order Comment: Speci men Type: SWAB OF INTERNAL NOSE Ordering Facility: [facility] Address: [address] [place] [address] Performed By: #### S APCR #### [facility] CLIA [id number] [address] [place] [address] [place] ECG COMPLETEon 03-10-2023 ECG COMPLETE Ventricular Rate : 7 1 BPM Atrial Rate : 71 BPM P-R Interval : 126 ms QRS Duration : 98 ms Q-T Interval : 386 ms QTC Calculation(Bazett) : 419 ms Calculated P [place] : 61 degrees Calculated R [place] : 77 degrees Calculated T [place] : 64 degrees NORMAL SINUS RHYTHM NORMAL ECG Confirmed by JESSICA CAMPBELL MDAHAM ([id number]) on 03/18/2023 2:49:46 PM NAME : MIMI VILLASENOR PID : [id number] : 1965 Gender : Male Race : ORD : [id number] Procedure Date : Mar 10 2023 09:43:15 Edit Date : Mar 18 2023 14:49:48 Diagnosis: NORMAL SINUS RHYTHM NORMAL ECG Confirmed by NAA CAMPBELL MD ([id number]) on 03/18/2023 2:49:46 PM Test Reason : Location : 145 : LOCARD Overread By : NAA CAMPBELL MD Edited By : NAA CAMPBELL MD Referred By : ETHEL INGRAM Acquired by : am, Azul [facility] HISTORY PHYSICALon HISTORY PHYSICAL HNO ID: [id number] Author: Ethel Ingram APRN.CRIMINAL INVESTIGATOR Service: ? Author Type: Nurse Practitioner Type: [...] fevers. Neuro: No history of TIA's, stroke, CHAIRLIFT OPERATOR tumor, impaired sensorium, hemiplegia, paraplegia or quadraplegia. No neurological symptoms or problems. Respiratory: No history of current cough or dyspnea, or pneumonia in the past 6 weeks. No history of respiratory/pulmonary symptoms or problems. Cardiovascular: No history of HTN requiring medication, no history of angina, CHF, MO, cardiac surgery or stents. Denies rest pain, [...] date range. (more content not included)... Normal [facility] PT panel Coag (PPP)on 2022 INR Coag (PPP) [Relative time] 0.9 {INR} Normal 0.9-1.3 [facility] Comment on above: Order Comment: Speci men Type: SWAB OF INTERNAL NOSE Ordering Facility: [facility] Address: [address] [place] [phone] Result Comment: Mishel min K Antagonist (VKA) Therapeutic Range: INR 2 to 3 (Target INR of 2.5) Note: For patients treated with VKA drugs, such as warfarin, the [employer] 2012 Guideline recommends [...] Chest 2012, 141:7S-47S Emmy RA, et al. [facility] 2017, 70: 252-289 Performed By: #### S APCR #### [facility] CLIA [id number] [address] [place] [address] [place] PT Coag (PPP) [Time] 9.8 s Normal 9.7-13.0 [facility] Comment on above: Order Comment: Speci men Type: SWAB OF INTERNAL NOSE Ordering Facility: [facility] Address: [address] [place] [address] Performed By: #### S APCR #### [facility] CLIA [id number] [address] [place] [address] [place] STAPH AUREUS PCRon S. aureus and MRSA panel TYLER+probe (Nose) Normal Negative [facility] Comment on above: Order Comment: Speci men Type: SWAB OF INTERNAL NOSE Ordering Facility: [facility] Address: [address] [place] [address] Result Comment: Nega tive for Staphylococcus aureus by PCR. Negative for MRSA by PCR Performed By: #### S APCR #### [facility] CLIA [id number] [address] [place] [address] [place] TYPE AND SCREEN,30 DAYon ABO O Normal [facility] Comment on above: Order Comment: Speci men Type: SWAB OF INTERNAL NOSE Ordering Facility: [facility] Address: [address] [place] [address] Performed By: #### S APCR #### [facility] CLIA [id number] [address] [place] [address] [place] HISTORICAL AB SCR STATUS Negative Normal [facility] Comment on above: Order Comment: Speci men Type: SWAB OF INTERNAL NOSE Ordering Facility: [facility] Address: [address] [place] [address] Performed By: #### S APCR #### [facility] CLIA [id number] [address] [place] [address] Rh Nom (Bld) Negative Normal [facility] Comment on above: Order Comment: Speci men Type: SWAB OF INTERNAL NOSE Ordering Facility: [facility] Address: [address] [place] [address] Performed By: #### S APCR #### [facility] CLIA [id number] [address] [place] [address] [place] aPTT PPPon 03-10-2023 aPTT Coag (PPP) [Time] 30.0 s Normal 23.0-32.4 [facility] Comment on above: Order Comment: Speci men Type: SWAB OF INTERNAL NOSE Ordering Facility: [facility] Address: [address] [place] [address] Result Comment: Froz en Plasma Aliquot Performed By: #### S APCR #### [facility] CLIA [id number] [address] [place] [address] [place] CNPNon 03-04-2023 CNPJosue Telephone (NIQ) MIMI VILLASENOR ([id number]) 1965 M BMD Date Time Provider Department 03/04/23 CLIFF GOMES During your visit today, we recorded the following information about you: Denise Silva [facility] 03/04/2023 8:37 AM Signed Pt saw Dr. [...] Dr. Cliff Gomes:02/25/23 Please schedule PAT for Starr for the week of 03/09. Please schedule pre op consent with Dr Gomes: n/a Please schedule pre op RN education: 03/18 at 10 AM Please schedule 2 week post op C Bonus (virtual visit) Please schedule post op MCVV with C Bonus 6-8wks post op [place] call: RHYS [...] non-home discharge disposition : Low [4] Nancy Calvetr RN Allergies As of Date: 03/04/2023 (No [...] Encounter Status:Closed by NANCY CALVERT on 03/05/23 Normal [facility] General Surgery Office/Clini c Noteon 03-03-2023 General [...] possible lift technique; call with problems/questions. Ordered: [facility] External Ambulatory Referral Follow-up [...] - Not Given Patient Refuses Normal [facility] Comment on above: Result Comment: Elec tronically Signed By: SHEY ORR, Gayla Li\Date and Time Signed: 03/03/23 15:15 EDT Cherrie 02-27-2023 CNPN Telephone (NIQ) MIMI VILLASENOR ([id number]) 1965 M BMD Date Time Provider Department 02/27/23 CLIFF GOMES During your visit today, we recorded the following information about you: Óscarsridevi Silva [facility] 02/27/2023 2:09 PM Signed Pt called asking for an 02/25/23 OV summary or plan of care documentation. Review of OV does not have the requested information documented. The incomplete information was not identified. Pt was only told he would be contacted by the nurse. Brittany Leander [facility] 03/11/2023 10:05 AM Signed 02/25/23 OV Note faxed to: [employer] Confirmation received. Allergies As of Date: 02/27/2023 [...] Status:Closed by BRITTANY APPLE on 03/11/23 Normal [facility] CNOVon 02-25-2023 CNOV Office Visit (SPNSMN ) MIMI IVLLASENOR ([id number]) 1965 M [facility] Date Time Provider Department 02/25/23 9:10 AM CLIFF GOMES NSMN During your visit today, we recorded the [...] Score Pe (more content not included)... Normal [facility] Pathology Noteon 02-23-2023 Pathology Note [id number]#1 .00CD:127 [facility] Outside Colonoscopyon 2022 Outside Colonoscopy [id number]#1 .00CD:127 [facility] Pre-Certification Formon Pre-Certification Form [id number]# 1.00CD:127 [facility] Consent for Procedure/Surger yon 01-29-2023 Consent for Procedure/Surgery [id number]#1 .00CD:127 [facility] Facesheeton 01-29-2023 Facesheet [id number]#1 .00CD:127 [facility] CNPNon 01-28-2023 [facility] Telephone (SPNSMN) MIMI VILLASENOR ([id number]) 1965 M BMD Date Time Provider Department 01/28/23 NICHOLE GRANADO SPNSMN During your visit today, we recorded the following information about you: Nichole Granado APRN.CRIMINAL INVESTIGATOR 01/28/2023 3:24 PM Signed Called and spoke [...] call and all questions answered. Nichole Granado APRN.CRIMINAL INVESTIGATOR Allergies As of Date: 01/28/2023 (No Known [...] Status:Closed by NICHOLE GRANADO on 01/28/23 Normal [facility] Consent for Procedure/Surger yon 01-28-2023 Consent for Procedure/Surgery [id number] .00CD:127 Normal [facility] Ambulatory Visit Summaryon 0 01-27-2023 Ambulatory Visit Summary MIMI VILLASENOR :1965 Visit Date:01/27/2023 Ambulatory Visit Instructions Your Care Team Attending Physician - SHEY ORR, Gayla Holly Primary Care Physician - Wendy Daniel MD [...] back pain syndrome Lumbar radiculopathy Smoker Normal [facility] CNOVon 01-23-2023 CNOV Office Visit (SPNSMN ) MIMI VILLASENOR ([id number]) 1965 M [facility] Date Time Provider Department 01/23/23 1:00 PM NICHOLE GRANADO SPNSMN During your visit today, we recorded the following information about you: Pulse Respiration Blood pressure Weight 81/minute 18/minute 111/75 82.8 kg Height 1.829 m Nichole Granado APRN.CRIMINAL INVESTIGATOR 01/23/2023 2:30 PM Signed SPINE SURGERY NEW [...] from neck/cervic (more content not included)... Normal [facility] XR LUMBAR 4V AP/LAT/ FLEX/EX Ton 01-23-2023 XR LUMBAR 4V AP/LAT/ FLEX/EXT * * *Final Report* * * DATE OF EXAM: Jan 23 2023 11:43AM MIGUE 5231 - XR LUMBAR 4V AP/LAT/ FLEX/EXT [...] the most caudal well formed disc space. [place] rightward curvature centered at L2 to. The [...] Multilevel degenerative changes without radiographically demonstrated instability. Street Cleaner: [facility] Transcribe Date/Time: Jan 23 2023 11:54A Dictated by : DORIS GIPSON MD This examination was interpreted and the report reviewed and electronically signed by: DORIS GIPSON MD on Jan 23 2023 11:55AM EST [id number] Normal [facility] XR LUMBAR MOTION 4V AP/LAT/ FLEX/EXTon 01-23-2023 [facility] OCC BLD IMMUNO SCREENon 12-25 OCCULT BLOOD Positive Abnormal NEGATIVE [facility] Comment on above: Performed By: #### O BSCRN ####[facility] [id number] [place], [place] [address]Ou. Osei Argueta US SINGLE QUAD RT UPPERon [...] by: MAURICE GARCIA Date: 2023-01-15 17:[address] [facility] VC VENOUS REFLUX SAQIB LMTon 0 01-15-2023 VC VENOUS REFLUX SAQIB LMT Patient: MIMI VILLASENOR Exam Date: 01/15/2023 : 1965 Gender:M Ordering : DR WENDY DANIEL . Admission #: [id number] Family : Order #: [id number] CLICK HERE TO VIEW EXAM RADIOLOGY REPORT [...] chronic thrombus visualized Compressibility: Normal Flow: Normal Dosimetrist: Dist/med calf 3.3mm with 0s reflux. Tech Note: Patent varicose vein mid/med calf 1.7mm with 0.4s reflux. Patent varicose vein mid/med thigh 2.3mm with 0.7s reflux. CONCLUSION: 1. No significant dilation of the superficial veins or clinically significant venous reflux. Dictated by: Maurice Garcia M.D. on 01/15/2023 at 14:05 Approved by: Maurice Garcia M.D. on 01/15/2023 at 14:07 Normal [facility] AMYLASEon 01-14-2023 Amylase [Catalytic activity/Vol] 58 U/L Normal 25-115 [facility] Comment on above: Performed By: #### L IPA, LIPID, TERRY, CMP ####[facility] [address] [place] [address]Dr. Osei Argueta CBC AUTO DIFFon 01-14-2023 BASO # 0.1 103/ul Normal 0.0-0.[address] [facility] Comment on above: Performed By: #### C BC #### [facility] [address] [place] [address] [address] Osei Argueta Basophils/100 WBC (Bld) 0.5 % Normal 0.2-2.0 [facility] Comment on above: Performed By: #### C BC #### [facility] [address] [place] [address] [address] Osei Argueta EO # 0.4 103/ul Normal 0.0-0.[address] [facility] Comment on above: Performed By: #### C BC #### [facility] [address] [place] [address] [address] Osei Argueta Eosinophils/100 WBC (Bld) 3.5 % Normal 0.9-7.[address] [facility] Comment on above: Performed By: #### C BC #### [facility] [address] [place] [address] Dr. Osei Argueta Erythrocyte distribution width (RBC) [Ratio] 12.8 % Normal 11.0-15.[address] [facility] Comment on above: Performed By: #### C BC #### [facility] [address] [place] [address] Dr. Osei Argueta Hematocrit (Bld) [Volume fraction] 48.3 % Normal 42.0-54.[address] [facility] Comment on above: Performed By: #### C BC #### [facility] [address] [place] [address] Dr. Osei Argueta Hemoglobin (Bld) [Mass/Vol] 16.7 g/dL Normal 14.0-18.[address] [facility] Comment on above: Performed By: #### C BC #### [facility] [address] [place] [address] Dr. Osei Argueta IG # 0.03 10e3/ul Normal 0.00-0.[address] [facility] Comment on above: Performed By: #### C BC #### [facility] [address] [place] [address] Dr. Osei Argueta IG % 0.3 % Normal 0.0-0.[address] [facility] Comment on above: Performed By: #### C BC #### [facility] [address] [place] [address] Dr. Osei Argueta LYMPH # 2.9 103/ul Normal 1.2-3.[address] [facility] Comment on above: Performed By: #### C BC #### [facility] [address] [place] [address] Dr. Osei Argueta Lymphocytes/100 WBC (Bld) 27.4 % Normal 20.5-60.[address] [facility] Comment on above: Performed By: #### C BC #### [facility] [address] [place] [address] Dr. Osei Argueta MANUAL DIFF REQ NO Normal [facility] Comment on above: Performed By: #### C BC #### [facility] [address] [place] [address] [address] Osei Argueta MCH (RBC) [Entitic mass] 33.3 pg Normal 25.9-34.[address] [facility] Comment on above: Performed By: #### C BC #### [facility] [address] [place] [address] [address] Osei Argueta MCHC (RBC) [Mass/Vol] 34.6 g/dL Normal 29.9-35.[address] [facility] Comment on above: Performed By: #### C BC #### [facility] [address] [place] [address] [address] Osei Argueta MCV (RBC) [Entitic vol] 96.2 fL Critically high 80.0-94.[address] [facility] Comment on above: Performed By: #### C BC #### [facility] [address] [place] [address] Dr. Osei Argueta MONO # 0.6 103/ul Normal 0.3-0.[address] [facility] Comment on above: Performed By: #### C BC #### [facility] [address] [place] [address] Dr. Osei Argueta Monocytes/100 WBC (Bld) 5.5 % Normal 1.7-12.[address] [facility] Comment on above: Performed By: #### C BC #### [facility] [address] [place] [address] Dr. Osei Argueta NEUT # 6.6 103/ul Critically high 1.4-6.5 [facility] Comment on above: Performed By: #### C BC #### [facility] [address] [place] [address] Dr. Osei Argueta Neutrophils/100 WBC (Bld) 62.8 % Normal 43.0-75.[address] [facility] Comment on above: Performed By: #### C BC #### [facility] [address] [place] [address] Dr. Osei Argueta Platelet mean volume (Bld) [Entitic vol] 9.0 fL Critically low 9.5-13.[address] [facility] Comment on above: Performed By: #### C BC #### [facility] [address] [place] [address] [address] Osei Argueta PLT 299 103/ul Normal 150-450 [facility] Comment on above: Performed By: #### C BC #### [facility] [address] [place] [address] [address] Osei Argueta RBC 5.02 106/ul Normal 4.70-6.[address] [facility] Comment on above: Performed By: #### C BC #### [facility] [address] [place] [address] [address] Osei Argueta WBC 10.4 103/ul Normal 4.0-11.[address] [facility] Comment on above: Performed By: #### C BC #### [facility] [address] [place] [address] Dr. Osei Argueta IRONon 01-14-2023 Iron [Mass/Vol] 68.0 ug/dL Normal 65.0-175.0 [facility] Comment on above: Performed By: #### I JHONATHAN #### [facility] [address] [place] [address] [address] Osei Argueta LIPASEon 01-14-2023 Lipase [Catalytic activity/Vol] 102.0 U/L Normal 73.0-393.[address] [facility] Comment on above: Performed By: #### L IPA, LIPID, TERRY, CMP ####[facility] [id number] [place] [id number] Argueta LIPID PROFILEon 01-14-2023 CHOL-HDL RATIO NORM SEE BELOW Normal [facility] Comment on above: Result Comment: 3.3 - 4.4 LOW RISK 4.4 - 7.1 AVERAGE RISK 7.1 - 11.0 MODERATE RISK >11.0 HIGH RISK Performed By: #### L IPA, LIPID, TERRY, CMP ####[facility] [id number] [place], [place] [address]DsDr. Osei Argueta Cholesterol [Mass/Vol] 162 mg/dL Normal <=200 [facility] Comment on above: Performed By: #### L IPA, LIPID, TERRY, CMP ####[facility] [address] [place] [id number]. Osei Argueta Cholesterol in HDL [Mass/Vol] 44 mg/dL Normal 40-60 [facility] Comment on above: Performed By: #### L IPA, LIPID, TERRY, CMP ####[facility] [address] [place] [id number]. Osei Argueta Cholesterol in LDL [Mass/Vol] 111.2 mg/dL Normal [facility] [facility] Comment on above: Performed By: #### L IPA, LIPID, TERRY, CMP ####[facility] [id number] [id number]. Osei Argueta Cholesterol.total/Ch olesterol in HDL [Mass ratio] 3.7 {ratio} Normal [facility] Comment on above: Performed By: #### L IPA, LIPID, TERRY, CMP ####[facility] [address] [address]Dr. Osei Argueta HDL NORMAL > or = 60 mg/dl - LO W CARDIOVASCULAR RISK <40 mg/dl - HIGH CARDIOVASCULAR RISK Normal [facility] Comment on above: Performed By: #### L IPA, LIPID, TERRY, CMP ####[facility] [address] [address]Dr. Osei Argueta LDL CALC NORMAL SEE BELOW Normal [facility] Comment on above: Result Comment: <100 mg/dl OPTIMAL 100 - 129 mg/dl NEAR OR ABOVE OPTIMAL 130 - 159 mg/dl BORDERLINE HIGH 160 - 189 mg/dl HIGH >190 mg/dl VERY HIGH Performed By: #### L IPA, LIPID, TERRY, CMP ####[facility] [address] [id number]. Osei Argueta Triglyceride [Mass/Vol] 34 mg/dL Normal <=150 [facility] Comment on above: Performed By: #### L IPA, LIPID, TERRY, CMP ####[facility] [address] [place] [address]Dr. Osei Argueta VLDL CALC 6.8 mg/dL Normal [facility] Comment on above: Performed By: #### L IPA, LIPID, TERRY, CMP ####[facility] [address] [address]Dr. Osei Argueta PROF 14(COMP METB)on 023 Albumin [Mass/Vol] 3.9 g/dL Normal 3.4-5.0 [facility] Comment on above: Performed By: #### L IPA, LIPID, TERRY, CMP ####[facility] [address] [address]Dr. Osie Argueta Albumin/Globulin [Mass ratio] 1.0 {ratio} Normal [facility] Comment on above: Performed By: #### L IPA, LIPID, TERRY, CMP ####[facility] [address] [place], [place] [address]Dr. Osei Argueta ALP [Catalytic activity/Vol] 82 U/L Normal 46-[address] [facility] Comment on above: Performed By: #### L IPA, LIPID, TERRY, CMP ####[facility] [address] [place], [place] [address]Dr. Osei Argueta ALT [Catalytic activity/Vol] 23 U/L Normal 16-[address] [facility] Comment on above: Performed By: #### L IPA, LIPID, TERRY, CMP ####[facility] [address] [place], [place] [address]Dr. Osei Argueta Anion gap [Moles/Vol] 8.2 mmol/L Normal [facility] Comment on above: Performed By: #### L IPA, LIPID, TERRY, CMP ####[facility] [address] [place], [place] [address]Dr. Osei Argueta AST [Catalytic activity/Vol] 19 U/L Normal 15-[address] [facility] Comment on above: Performed By: #### L IPA, LIPID, TERRY, CMP ####[facility] [address] [place], [place] [address]Dr. Osei Argueta Bilirubin [Mass/Vol] 0.3 mg/dL Normal 0.2-1.[address] [facility] Comment on above: Performed By: #### L IPA, LIPID, TERRY, CMP ####[facility] [address] [place], [place] [id number]. Osei Argueta Calcium [Mass/Vol] 9.5 mg/dL Normal 8.5-10.1 [facility] Comment on above: Performed By: #### L IPA, LIPID, TERRY, CMP ####[facility] [address] [place] [address]Dr. Osei Argueta Chloride [Moles/Vol] 107 mmol/L Normal 98-107 [facility] Comment on above: Performed By: #### L IPA, LIPID, TERRY, CMP ####[facility] [address] [place], [place] [address]Dr. Osei Argueta CO2 [Moles/Vol] 29.1 mmol/L Normal 21.0-32.0 [facility] Comment on above: Performed By: #### L IPA, LIPID, TERRY, CMP ####[facility] [address] [place], [place] [address]Dr. Osei Argueta Creatinine [Mass/Vol] 0.82 mg/dL Normal 0.70-1.30 [facility] Comment on above: Performed By: #### L IPA, LIPID, TERRY, CMP ####[facility] [address] [place], [place] [address]Dr. Osei Argueta EGFR-AF THAI >60 Normal >=60 [facility] Comment on above: Performed By: #### L IPA, LIPID, TERRY, CMP ####[facility] [address] [place], [place] [address]Dr. Osei Argueta EGFR-NON AF THAI >60 Normal >=60 [facility] Comment on above: Performed By: #### L IPA, LIPID, TERRY, CMP ####[facility] [address] [place] [address]Dr. Osei Argueta Globulin (S) [Mass/Vol] 3.9 g/dL Normal [facility] Comment on above: Performed By: #### L IPA, LIPID, TERRY, CMP ####[facility] [address] [place] [address]Dr. Osei Argueta Glucose [Mass/Vol] 94 mg/dL Normal 74-106 [facility] Comment on above: Performed By: #### L IPA, LIPID, TERRY, CMP ####[facility] [address] [place] [address]Dr. Osei Argueta Potassium [Moles/Vol] 5.3 mmol/L Critically high 3.5-5.[address] [facility] Comment on above: Performed By: #### L IPA, LIPID, TERRY, CMP ####[facility] [address] [place] [address]Dr. Osei Argueta Protein [Mass/Vol] 7.8 g/dL Normal 6.4-8.2 [facility] Comment on above: Performed By: #### L IPA, LIPID, TERRY, CMP ####[facility] [address] [place], [place] [address]Dr. Osei Argueta Sodium [Moles/Vol] 139 mmol/L Normal 136-145 [facility] Comment on above: Performed By: #### L IPA, LIPID, TERRY, CMP ####[facility] [address] [place] [address]Dr. Osei Argueta Urea nitrogen [Mass/Vol] 16.0 mg/dL Normal 7.0-18.0 [facility] Comment on above: Performed By: #### L IPA, LIPID, TERRY, CMP ####[facility] [address] [place] [address]Dr. Osei Argueta Urea nitrogen/Creatinine [Mass ratio] 19.5 mg/mg Normal [facility] Comment on above: Performed By: #### L IPA, LIPID, TERRY, CMP ####[facility] [address] [place], [place] [address]Dr. Osei Argueta MRI LSPINE WO CONon 01-08-20 23 MRI LSPINE WO CON EXAMINATION: MRI LSPINE [...] MAURICE GARCIA Date: 2023-01-08 07:47 Normal [facility] XR HIP LT 2 3V W PELVISon [...] DAYANARA ALVAREZ Date: 2022-10-09 09:58 Normal [facility] XR LSPINE MIN 4 VIEWSon 09-23 XR [...] paraspinous abnormality is seen. OTHER: Negative. IMPRESSION: Jvmb-he-xdwvomrp degenerative changes Electronically authenticated by: DAYANARA LUX Date: 2022-10-09 13:26 Normal [facility] PROF 14(COMP METB)on 022 Albumin [Mass/Vol] 3.9 g/dL Normal 3.4-5.0 [facility] Comment on above: Performed By: #### C MP #### [facility] [address] [place] [address] Dr. Osei Argueta Albumin/Globulin [Mass ratio] 1.0 {ratio} Normal [facility] Comment on above: Performed By: #### C MP #### [facility] [address] [place] [address] Dr. Osei Argueta ALP [Catalytic activity/Vol] 93 U/L Normal 46-[address] [facility] Comment on above: Performed By: #### C MP #### [facility] [address] [place] [address] Dr. Osei Argueta ALT [Catalytic activity/Vol] 25 U/L Normal 16-[address] [facility] Comment on above: Performed By: #### C MP #### [facility] [address] [place] [address] Dr. Osei Argueta Anion gap [Moles/Vol] 11.3 mmol/L Normal [facility] Comment on above: Performed By: #### C MP #### [facility] [address] [place] [address] Dr. Osei Argueta AST [Catalytic activity/Vol] 29 U/L Normal 15-[address] [facility] Comment on above: Performed By: #### C MP #### [facility] [address] [place] [address] Dr. Osei Argueta Bilirubin [Mass/Vol] 0.4 mg/dL Normal 0.2-1.[address] [facility] Comment on above: Performed By: #### C MP #### [facility] [address] [place] [address] Dr. Osei Argueta Calcium [Mass/Vol] 9.1 mg/dL Normal 8.5-10.1 [facility] Comment on above: Performed By: #### C MP #### [facility] [address] [address] [address] Osei Argueta Chloride [Moles/Vol] 107 mmol/L Normal 98-[address] [facility] Comment on above: Performed By: #### C MP #### [facility] [address] [place] [address] Dr. Osei Argueta CO2 [Moles/Vol] 27.0 mmol/L Normal 21.0-32.0 [facility] Comment on above: Performed By: #### C MP #### [facility] [address] [place] [address] Dr. Osei Argueta Creatinine [Mass/Vol] 0.78 mg/dL Normal 0.70-1.[address] [facility] Comment on above: Performed By: #### C MP #### [facility] [address] [place] [address] Dr. Osei Argueta EGFR-AF THAI >60 Normal >=60 [facility] Comment on above: Performed By: #### C MP #### [facility] [address] [place] [address] Dr. Osei Argueta EGFR-NON AF THAI >60 Normal >=[address] [facility] Comment on above: Performed By: #### C MP #### [facility] [address] [place] [address] Dr. Osei Argueta Globulin (S) [Mass/Vol] 3.9 g/dL Normal [facility] Comment on above: Performed By: #### C MP #### [facility] [address] [place] [address] Dr. Osei Argueta Glucose [Mass/Vol] 99 mg/dL Normal 74-106 [facility] Comment on above: Performed By: #### C MP #### [facility] [address] [place] [address] Dr. Osei Argueta Potassium [Moles/Vol] 4.3 mmol/L Normal 3.5-5.1 [facility] Comment on above: Result Comment: SPEC IMEN SLIGHTLY HEMOLIZED Performed By: #### C MP #### [facility] [address] [address] [address] Osei Argueta Protein [Mass/Vol] 7.8 g/dL Normal 6.4-8.2 [facility] Comment on above: Performed By: #### C MP #### [facility] [address] [address] [address] Osei Argueta Sodium [Moles/Vol] 141 mmol/L Normal 136-145 [facility] Comment on above: Performed By: #### C MP #### [facility] [address] [address] [address] Osei Argueta Urea nitrogen [Mass/Vol] 14.0 mg/dL Normal 7.0-18.[address] [facility] Comment on above: Performed By: #### C MP #### [facility] [address] [place] [address] Dr. Osei Argueta Urea nitrogen/Creatinine [Mass ratio] 17.9 mg/mg Normal [facility] Comment on above: Performed By: #### C MP #### [facility] [address] [address] [address] Osei Argueta CBC AUTO DIFFon 06-20-2022 BASO # 0.0 103/ul Normal 0.0-0.[address] [facility] Comment on above: Performed By: #### C BC #### [facility] [address] [place] [address] Dr. Osei Argueta Basophils/100 WBC (Bld) 0.4 % Normal 0.2-2.[address] [facility] Comment on above: Performed By: #### C BC #### [facility] [address] [place] [address] Dr. Osei Argueta EO # 0.2 103/ul Normal 0.0-0.[address] [facility] Comment on above: Performed By: #### C BC #### [facility] [address] [place] [address] Dr. Osei Argueta Eosinophils/100 WBC (Bld) 1.6 % Normal 0.9-7.[address] [facility] Comment on above: Performed By: #### C BC #### [facility] [address] [place] [address] Dr. Osei Argueta Erythrocyte distribution width (RBC) [Ratio] 13.2 % Normal 11.0-15.[address] [facility] Comment on above: Performed By: #### C BC #### [facility] [address] [place] [address] Dr. Osei Argueta Hematocrit (Bld) [Volume fraction] 52.2 % Normal 42.0-54.[address] [facility] Comment on above: Performed By: #### C BC #### [facility] [address] [place] [address] Dr. Osei Argueta Hemoglobin (Bld) [Mass/Vol] 18.0 g/dL Normal 14.0-18.[address] [facility] Comment on above: Performed By: #### C BC #### [facility] [address] [place] [address] Dr. Osei Argueta IG # 0.02 10e3/ul Normal 0.00-0.[address] [facility] Comment on above: Performed By: #### C BC #### [facility] [address] [place] [address] Dr. Osei Argueta IG % 0.2 % Normal 0.0-0.[address] [facility] Comment on above: Performed By: #### C BC #### [facility] [address] [place] [address] Dr. Osei Argueta LYMPH # 2.4 103/ul Normal 1.2-3.[address] [facility] Comment on above: Performed By: #### C BC #### [facility] [address] [place] [address] Dr. Osei Argueta Lymphocytes/100 WBC (Bld) 24.7 % Normal 20.5-60.[address] [facility] Comment on above: Performed By: #### C BC #### [facility] [address] [place] [address] Dr. Osei Argueta MANUAL DIFF REQ NO Normal [facility] Comment on above: Performed By: #### C BC #### [facility] [address] [place] [address] Dr. Osei Argueta MCH (RBC) [Entitic mass] 33.1 pg Normal 25.9-34.0 [facility] Comment on above: Performed By: #### C BC #### [facility] [address] [place] [address] Dr. Osei Argueta MCHC (RBC) [Mass/Vol] 34.5 g/dL Normal 29.9-35.2 [facility] Comment on above: Performed By: #### C BC #### [facility] [address] [place] [address] Dr. Osei Argueta MCV (RBC) [Entitic vol] 96.1 fL Critically high 80.0-94.[address] [facility] Comment on above: Performed By: #### C BC #### [facility] [address] [place] [address] Dr. Osei Argueta MONO # 0.6 103/ul Normal 0.3-0.8 [facility] Comment on above: Performed By: #### C BC #### [facility] [address] [place] [address] Dr. Osei Argueta Monocytes/100 WBC (Bld) 6.1 % Normal 1.7-12.[address] [facility] Comment on above: Performed By: #### C BC #### [facility] [address] [place] [address] Dr. Osei Argueta NEUT # 6.4 103/ul Normal 1.4-6.5 [facility] Comment on above: Performed By: #### C BC #### [facility] [address] [place] [address] Dr. Osei Argueta Neutrophils/100 WBC (Bld) 67.0 % Normal 43.0-75.0 [facility] Comment on above: Performed By: #### C BC #### [facility] [address] [place] [address] Dr. Osei Argueta Platelet mean volume (Bld) [Entitic vol] 9.1 fL Critically low 9.5-13.5 [facility] Comment on above: Performed By: #### C BC #### [facility] [address] [address] [address] Osei Argueta PLT 324 103/ul Normal 150-[address] [facility] Comment on above: Performed By: #### C BC #### [facility] [address] [address] [address] Osei Argueta RBC 5.43 106/ul Normal 4.70-6.[address] [facility] Comment on above: Performed By: #### C BC #### [facility] [address] [place] [address] Dr. Osei Argueta WBC 9.5 103/ul Normal 4.0-11.[address] [facility] Comment on above: Performed By: #### C BC #### [facility] [address] [place] [address] Dr. Osei Argueta GLYCOHEMOGLOBIN A1Con 2021 ADA RECOMMENDATION SEE BELOW Normal [facility] Comment on above: Result Comment: ADA RECOMMENDED LIMIT 4.0 - 6.0 ADA THERAPEUTIC TARGET < 7.0 ACTION SUGGESTED > 7.0 Performed By: #### A 1C #### [facility] [address] [place] [address] Dr. Osei Argueta Glucose [Mass/Vol] 108 mg/dL Normal [facility] Comment on above: Performed By: #### A 1C #### [facility] [address] [place] [address] Dr. Osei Argueta HbA1c (Bld) [Mass fraction] 5.4 % Normal 4.5-6.[address] [facility] Comment on above: Performed By: #### A 1C #### [facility] [address] [place] [address] Dr. Osei Argueta LIPID PROFILEon 06-20-2022 CHOL-HDL RATIO NORM SEE BELOW Normal [facility] Comment on above: Result Comment: 3.3 - 4.4 LOW RISK 4.4 - 7.1 AVERAGE RISK 7.1 - 11.0 MODERATE RISK >11.0 HIGH RISK Performed By: #### L IPID #### [facility] [address] [place] [address] Dr. Osei Argueta Cholesterol [Mass/Vol] 161 mg/dL Normal <=[address] [facility] Comment on above: Performed By: #### L IPID #### [facility] [address] [address] [address] Osei Argueta Cholesterol in HDL [Mass/Vol] 49 mg/dL Normal 40-[address] [facility] Comment on above: Performed By: #### L IPID #### [facility] [address] [address] [address] Osei Argueta Cholesterol in LDL [Mass/Vol] 104.0 mg/dL Normal [facility] Comment on above: Performed By: #### L IPID #### [facility] [address] [address] [address] Osei Argueta Cholesterol.total/Ch olesterol in HDL [Mass ratio] 3.3 {ratio} Normal [facility] Comment on above: Performed By: #### L IPID #### [facility] [address] [address] [address] Osei Argueta HDL NORMAL > or = 60 mg/dl - LO W CARDIOVASCULAR RISK <40 mg/dl - HIGH CARDIOVASCULAR RISK Normal [facility] Comment on above: Performed By: #### L IPID #### [facility] [address] [address] [address] Osei Argueta LDL CALC NORMAL SEE BELOW Normal [facility] Comment on above: Result Comment: <100 mg/dl OPTIMAL 100 - 129 mg/dl NEAR OR ABOVE OPTIMAL 130 - 159 mg/dl BORDERLINE HIGH 160 - 189 mg/dl HIGH >190 mg/dl VERY HIGH Performed By: #### L IPID #### [facility] [address] [address] [address] Osei Argueta Triglyceride [Mass/Vol] 40 mg/dL Normal <=150 [facility] Comment on above: Performed By: #### L IPID #### [facility] [address] [address] [address] Osei Argueta VLDL CALC 8.0 mg/dL Normal [facility] Comment on above: Performed By: #### L IPID #### [facility] [address] [address] [address] Osei Argueta OCC BLD IMMUNO SCREENon 05-24 OCCULT BLOOD Negative Normal NEGATIVE [facility] Comment on above: Performed By: #### O BSCRN #### [facility] [address] [address] [address] Osei Argueta Vital Signs Date Time Vital Sign Value Performing Clinician Faci lity 07-22-2023 13:24-0400 Diastolic blood pressure 76 mm[Hg] MD Wendy Daniel Work Phone: [facility] 07-22-2023 13:24-0400 Heart rate 73 /min MD Wendy Daniel Work Phone: [facility] 07-22-2023 13:24-0400 Respiratory rate 16 /min MD Wendy Daniel Work Phone: [facility] 07-22-2023 13:24-0400 SaO2% (BldA) [Mass fraction] 98 % MD Wendy Daniel Work Phone: [facility] 07-22-2023 13:24-0400 Systolic blood pressure 105 mm[Hg] MD Wendy Daniel Work Phone: [facility] 07-22-2023 11:15-0400 Body height 182.88 cm MD Wendy Daniel Work Phone: [facility] 07-22-2023 11:15-0400 Body temperature 98.1 [degF] MD Wendy Daniel Work Phone: [facility] 07-22-2023 11:15-0400 Body weight 83.91 kg MD Wendy Daniel Work Phone: [facility] 02-25-2023 08:56-0400 Body height 182.9 cm Cliff Gomes MD Work Phone: [facility] 02-25-2023 08:56-0400 Body weight 83.14 kg Cliff Gomes MD Work Phone: [facility] 02-25-2023 08:56-0400 Diastolic blood pressure 78 mm[Hg] Cliff Gomes MD Work Phone: [facility] 02-25-2023 08:56-0400 Heart rate 80 /min Cliff Gomes MD Work Phone: [facility] 02-25-2023 08:56-0400 Respiratory rate 16 /min Cliff Gomes MD Work Phone: [facility] 02-25-2023 08:56-0400 SaO2% (BldA) [Mass fraction] 97 % Cliff Gomes MD Work Phone: [facility] 02-25-2023 08:56-0400 Systolic blood pressure 131 mm[Hg] Cliff Gomes MD Work Phone: [facility] 01-27-2023 13:09-0500 Blood Pressure Location Gayla N[facility] [place] 01-27-2023 13:09-0500 Diastolic blood pressure 76 mm[Hg] Gayla N[facility] [place] 01-27-2023 13:09-0500 Heart rate 68 /min Gayla NILL [facility] [place] 01-27-2023 13:09-0500 Respiratory rate 16 /min Gayla NILL [facility] [place] 01-27-2023 13:09-0500 Systolic blood pressure 120 mm[Hg] Gayla NILL [facility] [place] 01-23-2023 12:19-0500 Body height 182.9 cm Nichole Granado TWILL CUTTER.CRIMINAL INVESTIGATOR Work Phone: [facility] 01-23-2023 12:19-0500 Body weight 82.78 kg Nichole Granado APRN.CRIMINAL INVESTIGATOR Work Phone: [facility] 01-23-2023 12:19-0500 Diastolic blood pressure 75 mm[Hg] Nichole Granado TWILL CUTTER.CRIMINAL INVESTIGATOR Work Phone: [facility] 01-23-2023 12:19-0500 Heart rate 81 /min Nichole Granado TWILL CUTTER.CRIMINAL INVESTIGATOR Work Phone: [facility] 01-23-2023 12:19-0500 Respiratory rate 18 /min Nichole Granado TWILL CUTTER.CRIMINAL INVESTIGATOR Work Phone: [facility] 01-23-2023 12:19-0500 Systolic blood pressure 111 mm[Hg] Nichole Granado TWILL CUTTER.CRIMINAL INVESTIGATOR Work Phone: [facility] Encounters Encounter Date Encounter Type Care Provider Facility Start: 01-01-2024 ambulatory Wendy Daniel MD Facility:[facility] Start: 07-22-2023 End: 07-22-2023 ambulatory Wendy Daniel Facility:[facility] Start: 07-22-2023 End: 07-22-2023 Admission to same day surgery center MD Wendy Daniel Work Phone: [facility] Work Phone: Start: 07-22-2023 End: 07-22-2023 ambulatory MD Wendy Daniel Work Phone: [facility] Work Phone: Start: 06-29-2023 ambulatory Keon Christopherus PA-C Work Phone: [facility] Comment on above: Return to work Start: 06-26-2023 Telephone encounter Cliff wheatley MD Work Phone: [facility] Comment on above: Return To Work Kelechi r Start: 06-26-2023 End: 06-26-2023 ambulatory Keon Bonus PA-C Work Phone: [facility] Comment on above: History of lumbar la minectomy (Primary Dx) Start: 06-26-2023 End: 06-26-2023 Telemedicine consultation with patient Keon Christopherus PA-C Work Phone: [facility] Start: 06-01-2023 Telephone encounter Keon ramires PA-C Work Phone: Neurology Comment on above: Restriction form Start: 05-28-2023 End: 05-28-2023 ambulatory Keon Todd PA-C Work Phone: [facility] Comment on above: S/P lumbar laminecto my (Primary Dx) Start: 05-28-2023 Patient encounter procedure Keon Todd PA-C Work Phone: [facility] Comment on above: Therapy Referral Start: 05-28-2023 End: 05-28-2023 ambulatory WENDY M JOSE ENRIQUESofiya Facility:[facility] Start: 05-28-2023 End: 05-28-2023 Telemedicine consultation with patient Keon Todd PA-C Work Phone: [address] Start: 05-07-2023 Telephone encounter Cliff wheatley MD Work Phone: Neurology Comment on above: Patient Question Start: 04-27-2023 Telephone encounter Cliff wheatley MD Work Phone: Neurology Comment on above: Short Term Disabilit y paperwork Start: 04-24-2023 Telephone encounter Cliff wheatley MD Work Phone: Neurology Comment on above: Patient Question Start: 04-10-2023 End: 04-10-2023 ambulatory CLIFF WANDAE Facility:[facility] Start: 03-27-2023 End: 03-27-2023 ambulatory CLIFFBROCK GOMES Facility:[facility] Start: 03-18-2023 End: 03-18-2023 Nursing evaluation of patient and report Nancy Calvert RN [facility] [place] Comment on above: Educational circumst ance (Primary Dx) Start: 03-18-2023 End: 03-19-2023 ambulatory WENDY M MARÍA Facility:[facility] Start: 03-10-2023 Encounter for other preprocedural examination WENDY DANIEL [facility] Start: 03-10-2023 End: 03-11-2023 ambulatory WENDY M HOY Facility:[facility] Start: 03-09-2023 End: 03-09-2023 [facility] Start: 03-05-2023 ambulatory Cliff Gomes MD Work Phone: [facility] [place] Start: 03-05-2023 Patient encounter status Tj Gomes MD Work Phone: [facility] [place] Start: 03-03-2023 End: 03-04-2023 ambulatory Gayla KAT Facility: [facility] Start: 03-03-2023 End: 03-03-2023 Patient encounter procedure Gayla KAT General Surgery [facility] [place] Start: 02-25-2023 End: 02-26-2023 ambulatory CLIFF GOMES Facility:[facility] Start: 02-25-2023 End: 02-25-2023 Patient encounter procedure Cliff Gomes MD Work Phone: [facility] [place] Comment on above: Lumbar radiculopathy (Primary Dx) Start: 02-18-2023 End: 02-19-[address] GAYLA KAT . Facility: Start: 01-28-2023 Telephone encounter Nichole grey APRN.CRIMINAL INVESTIGATOR Work Phone: [facility] [place] Comment on above: Follow Up Start: 01-27-2023 End: 01-28-2023 ambulatory Gayla KAT Facility: [facility] Start: 01-27-2023 End: 01-27-2023 Patient encounter procedure Gayla KAT General Surgery [facility] [place] Start: 01-23-2023 End: 01-24-2023 ambulatory NICHOLE GRANADO Facility:[facility] Start: 01-23-2023 End: 01-23-2023 Patient encounter procedure Nichole Granado TWILL CUTTER.CRIMINAL INVESTIGATOR Work Phone: [facility] [place] Comment on above: Lumbar radiculopathy (Primary Dx); [...] abnormal findings DR WENDY DANIEL . [facility] Start: 07-14-2022 End: 07-15-[address] WENDY [...] Type: SWAB OF INTERNAL NOSE Ordering Facility: [facility] Address: [address] [place] [address] Performed By: #### S APCR #### [facility] CLIA [id number] [address] [place] [address] [place] Start: 02-18-2023 Colonoscopy Gayla LOVE Start: 01-23-2023 Radex spine lumbosac ral minimum 4 views Nichole Granado TWILL CUTTER.CRIMINAL INVESTIGATOR Work Phone: Start: 06-20-[address] ERICA DANIEL . Comment on above: Performed By: #### P SASC #### [facility] [address] [place] [address] Dr. Osei Argueta Start: 07-26-2015 excision of subcutan eous nodule left anterior thigh - local Gayla KAT Appendectomy Gayla KAT Repair of left ingui nal hernia Gayla KAT Repair of right ingu inal hernia Gayla KAT Plan of Treatment Date Care Activity Detail Author Start: 06-20-2027 PROSTATE CANCER SCREENING DISCUSSION PROSTATE CANCER SCREENING DISCUSSION [facility] Start: 03-10-2026 DIABETES SCREEN DIABETES SCREEN [facility] Start: 07-24-2023 Influenza vaccination [facility] Start: 07-22-2023 [facility] Start: 03-27-2023 End: 09-01-2023 [facility] PCR [facility] Lab Routine Lumbar radiculopathy Pre-op testing Expected: 03/27/2023, Expires: 09/01/2023 [facility] Work Phone: Comment on above: Expected: 03/27/2023 , Expires: 09/01/2023 Start: 11-23-2022 DEPRESSION ASSESSMENT DEPRESSION ASS ESSMENT [facility] Start: 07-24-2022 Influenza vaccination INFLUENZA (#1) [facility] Start: 2015 SHINGRIX VACCINE (1 of 2) SHINGRIX VACCINE (1 of 2) [facility] Start: 2010 COLOGUARD (FIT-DNA) COLOGUARD (FIT-D NA) [facility] Start: 2010 Colonoscopy COLONOSCOPY [facility] Start: 2010 COLORECTAL CANCER SCREENING COLORECTAL CANCER SCREENING [facility] Start: [address] COLONOGRAPHY [facility] Start: 2010 DIABETES SCREEN DIABETES SCREEN [facility] Start: 2010 FECAL OCCULT BLOOD FECAL OCCULT BLOO D [facility] Start: 2010 SIGMOIDOSCOPY SIGMOIDOSCOPY [facility] Start: 2000 LIPID SCREEN LIPID SCREEN [facility] Start: 1984 Urine microalbumin profile DTAP,TDAP,TD (1 - Tdap) [facility] Start: 1983 HEPATITIS C SCREENING HEPATITIS C SC REENING [facility] Start: 1983 HIV SCREENING HIV SCREENING [facility] Start: 1971 PNEUMOCOCCAL (1 - PCV) PNEUMOCOCCAL (1 - PCV) [facility] Start: 1965 COVID-19 VACCINE (#1) COVID-19 VACCI NE (#1) [facility] Start: 1965 HEPATITIS B (1 of 3 - 3-dose series) HEPATITIS B (1 of 3 - 3-dose series) [facility] Patient Education Colon Polypectomy (DC) [facility] Work Phone: [facility] Immunizations Immunization Date Immunization Notes Care Provider Fa jaye NEGATED: Highlighted row has not occurred!01-27-2023 influenza virus vaccine, unspecified formulation Gayla KAT [facility] [place] NEGATED: Highlighted row has not occurred!01-27-2023 SARS-CoV-2 mRNA (tozinameran 5y-11y) vaccine Gayla KAT [facility] [place] Payers Date Payer Category Payer Self-pay 2021 Unknown [employer] PPO OOS [id number] 2021-Present [phone] [address] [place] [address] PPO [id number] 2013 Medicaid MEDICAID [facility] MEDICAID [id number] 2013-Present [phone] [address] [place] [address] Medicaid [id number] 1965 Unknown [id number] 1965 Unknown [id number] [id number] 1965 Unknown [id number] [id number] 1965 Unknown [id number] [id number] 1965 Unknown [id number] [id number] 1965 Unknown [id number] [id number] 1965 Unknown [id number] [id number] 1965 Unknown [id number] [id number] 1965 Unknown [id number] [id number] 1965 Unknown [id number] [id number] 1965 Unknown [id number] [id number] 1959 Unknown [id number] Unknown O [id number] Unknown [id number] Social History Date Type Detail Facility Start: 11-23-2007 End: 03-10-2023 Tobacco smoking status NHIS Smokes tobacco daily [facility] Work Phone: Start: 11-23-2007 History of tobacco use Cigarette Smo ker [facility] Work Phone: Start: 01-23-2023 End: 03-10-2023 Tobacco use and exposure Smokeless tobacco non-user [facility] Work Phone: Start: 01-23-2023 End: 03-10-2023 Alcohol intake Current drinker of alcohol (finding) [facility] Start: 01-23-2023 Alcohol Comment social [facility] Start: 1965 Sex Assigned At Not on file [facility] Start: 01-13-2023 End: 01-23-2023 Exposure to SARS-CoV-2 (event) Not sure [facility] Start: 01-27-2023 Tobacco smoking status Heavy t obacco smoker (finding) [facility] Tobacco smoking status Never [facility] [place] Start: 03-10-2023 End: 04-10-2023 Sex Assigned At Male Reji Holloway [facility] Start: 03-10-2023 End: 04-10-2023 Cigarettes smoked current (pack per day) - Reported 0.8 [facility] Start: 03-10-2023 Alcohol Comment 4x per week 6-10 bee rs [facility] Start: 01-20-2023 Gender identity Identifies as male gender (finding) [facility] Start: 07-22-2023 Tobacco smoking stat us NHIS Smoker (finding) [facility] Start: 1965 Sex Assigned At Male F [facility] Goals Date Patient Goal Desired Activity /State Functional Status Date Assessment Result Facility 01-27-2023 Functional Status N/A [facility] 01-16-2023 to 07-22-2023 Note Date & Type Note Facility 07-22-2023 History and physical note Note Date/Time July 22, 2023 12:09pm [facility] [address] [place] [address] Gastroenterology H&P Signed Patient: Mimi Villasenor MR#: [id number] : 1965 Acct:[id number] Age/Sex: 58 / M Adm Date: 3 Loc: Room: Type: [facility] Attending Dr: Essie Toscano MD Copies to: [...] Essie Toscano MD> 07/22/23 1208 [facility] Work Phone: 1(339) 591-884608-30-2023 [facility] Miscellaneous Notes* Telephone Encounter - Brittany Apple - 06/26/2023 3:52 PM EDT Return to work letter faxed to: [employer]il [employer] And to: Attn: Tierra Confirmation received for both. documented in this encounterGood Samaritan Hospital08-04-2023 NoteHNO ID: [id number] Author: Keon Todd PA-C Service: ? Author Type: Physician Embossing Toolsetter Type: Progress Notes Filed: 06/26/2023 12:11 PM Note Text: SPINE SURGERY FOLLOW UP This is a virtual visit using [employer] video visit. It required patient-provider interaction for the medical decision making as documented below. I have communicated my name and active licensure. The patient's identity and physical location were verified at the time of this visit. Either the patient or their legal truck sales representative has been informed of the risks [...] DATE: June 26, 2023 TIME: 11:58 AM PAGER:[facility]08-04-2023 History of Present illness Narrative* Keon Todd PA-C - 06/26/2023 11:58 AM EDT SPINE SURGERY FOLLOW UP This is a virtual visit using [employer] video visit. It required patient-provider interaction for themedical decision making as documented below. I have communicated my name and active licensure. The patient's identity and physical location wereverified at the time of this visit. Either the patient or their legal truck sales representative has been informed of the risks [...] TIME: 11:58 AM PAGER: documented in this encounterGood Samaritan Hospital07-19-2023 Miscellaneous Notes* Telephone Encounter - Brittany Apple - 06/10/2023 1:16 PM EDT Restrictions form completed, signed and faxed to: [employer] [facility] Confirmation received, copy scanned to chart. * Telephone Encounter - Peace Toney LPN - 06/01/2023 4:03 PM EDT Received, Reviewed [facility] forms and need signed by Dr. Gomes Placed on Brittany's inbasket, to get signed and fax/scan to patient chart Leave dates: 03/27/23-TBD Per Keon Todd note 05/28/23: He has a physical job. We discussed plan of starting PT and in 4 weeks we will evaluate for RTW. Follow up scheduled for 06/26/23. Peace Guzman LPN * Telephone Encounter - Claudia Hung - 06/01/2023 3:06 PM EDT received Restrictions form- given to VLAD team to process. documented in this encounterGood Samaritan Hospital07-06-2023 NoteHNO ID: [id number] Author: Keon Todd PA-C Service: ? Author Type: Physician Embossing Toolsetter Type: Progress Notes Filed: 05/28/2023 8:49 AM Note Text: SPINE SURGERY FOLLOW UP This is a virtual visit using [employer] video visit. It required patient-provider interaction for the medical decision making as documented below. I have communicated my name and active licensure. The patient's identity and physical location were verified at the time of this visit. Either the patient or their legal truck sales representative has been informed of the risks [...] DATE: May 28, 2023 TIME: 8:33 AM PAGER:[facility]07-06-2023 History of Present illness Narrative* Keon Todd PA-C - 05/28/2023 8:33 AM EDT SPINE SURGERY FOLLOW UP This is a virtual visit using [employer] video visit. It required patient-provider interaction for themedical decision making as documented below. I have communicated my name and active licensure. The patient's identity and physical location wereverified at the time of this visit. 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 All post op restrictions have been reviewed at length * Telephone Encounter - Jessy Livingston Asst - 05/07/2023 12:22 PM EDT Patient is calling to know if he can start doing some yard work like riding his horse buyer anythinglight he can do around the home call back [phone] documented in this encounterGood Samaritan Hospital06-05-2023 Miscellaneous Notes* Telephone Encounter - Peace [...] pages for patient Short Term Disability from [employer] requesting more information (medical) gave to INSPECTOR BOILER[employer] Zuleima/Dia for review documented in this encounterGood Samaritan Hospital06-02-2023 Miscellaneous Notes* Telephone Encounter - Brittany [place] [facility] - 04/24/2023 2:53 PM EDT Revised forms faxed to: [employer] [facility] Confirmation received. * Telephone Encounter - Peace Toney LPN [...] scheduled his colonoscopy Pt is requesting updated [employer] financial forms to confirm his work date. His HR is stating that his RTW is today No RTW date has been decided Next follow up on 05-28-23 Form updated with VLAD- this will be refaxed. Yaya Coronel RN * Telephone Encounter - Claudia Clemente Cpht - 04/24/2023 10:26 AM EDT pt had surgery on 03/27. Pt scheduled for colonoscopy scheduled, pt would like to discuss with RN if its okay to have colonoscopy post -op. Call back: [phone] documented in this encounterGood Samaritan Hospital05-19-2023 NoteHNO ID: [id number] Author: Keon Todd PA-C Service: ? Author Type: Physician Embossing Toolsetter Type: Progress Notes Filed: 04/10/2023 7:51 AM Note Text: SPINE SURGERY FOLLOW UP This is a virtual visit using [employer] video visit. It required patient-provider interaction for the medical decision making as documented below. I have communicated my name and active licensure. The patient's identity and physical location were verified at the time of this visit. Either the patient or their legal truck sales representative has been informed of the risks [...] DATE: April 10, 2023 TIME: 7:32 AM PAGER:[facility]05-05-2023 NoteHNO ID: [id number] Author: Lindsey Nair MD Service: ? Author [...] March 27, 2023 TIME: 8:07 AM CSN: [id number] Community Hospital04-26-2023 NoteHNO ID: [id number] Author: Dia Covarrubias LPN Service: ? Author Type: LICENSED NURSE Type: Progress Notes Filed: 03/18/2023 9:50 AM Note Text: Neuro SPINE CARE COORDINATION PRE-OP VISIT Spoke with patient for pre op education. Given both written and verbal instructions re : Skin prep, wound care, pain management and post op restrictions. Provided to patient: [facility] Surgery Guide, skin prep supplies, Spine Surgery Pre/post op education packet. Yes Reviewed with patient to report to desk J19 for surgery ? Yes. Reviewed with the patient to call [phone] the day before to get surgery report [...] -op Support All questions answered . [facility] History of Present illness Narrative* Dia Covarrubias LPN - 03/18/2023 9:35 AM EDT Neuro SPINE CARE COORDINATION PRE-OP VISIT Spoke with patient for pre op education. Given both written and verbal instructions re : Skin prep,wound care, pain management and post op restrictions. Provided to patient: [facility] Surgery Guide, skin prep supplies, Spine Surgery Pre/post op education packet. Yes Reviewed with patient to report to desk J19 for surgery ? Yes. Reviewed with the patient to call [phone] the day before to get surgery report [...] . Dia Covarrubias LPN documented in this encounterGood Samaritan Hospital04-05-2023 NoteHNO ID: [id number] Author: Cliff Gomes MD Service: ? Author [...] is reasonable to proceed with: 3.4 lami RBMANUELAO reviewed in comprehensive detail, all questions were [...] record or letter via [place] mail. NATE Amorkins is a 57 year old male presenting [...] Health Scale 01/20/2023 Physica (more content not included)...[facility]04-05-2023 History of Present illness Narrative* Cliff Gomes [...] TIME: 9:26 AM PAGER: documented in this encounterGood Samaritan Hospital03-29-2023 NoteOP Note OPERATION DATE: 02/18/2023 PREOPERATIVE [...] in good condition. CC: Wendy Daniel M.D.[facility] [id number] NoteChief Complaint consultation for positive occult stool [...] (tozinameran 5y-11y) vac - Not Given Patient RefusesToledo HospitalComment on above:Result Comment: Electronically Signed By: SHEY ORR, Gayla Li\Date and Time Signed: 01/28/23 16:46 [id number] Miscellaneous Notes* Telephone Encounter - Nichole Granado [...] call and all questions answered. Nichole Granado APRN.CNP documented in this encounterGood Samaritan Hospital03-03-2023 NoteHNO ID: [id number] Author: Nichole Granado APRN.CNP Service: ? Author [...] No PROMIS Score Percentiles (more content not included)...[facility]03-03-2023 NoteHNO ID: [id number] Author: Kae Rodriguez RT(R) Service: Radiology Author [...] BY: RT Birdie(R) January 23, 2023 11:46 [facility]03-03-2023 History of Present illness Narrative* Nichole Granado APRN.CRIMINAL INVESTIGATOR - 01/23/2023 1:00 PM EST Images from [...] which included preparing to see the patient, [id number] patient care, completing clinical documentation, obtaining and/or reviewing separately obtained history, performing a medically appropriate examination, counseling and educating the pat ient/family/caregiver, independently interpreting results (not separately reported), and communicating results to the patient/family/caregiver. SIGNATURE: Nichole Granado APRN.CNP PATIENT NAME: Mimi Villasenor DATE: January 22, 2023 TIME: 3:48 PM PAGER: documented in this encounterGood Samaritan Hospital03-03-2023 History of Present illness Narrative* RT Birdie(R) - 01/23/2023 12:30 PM EST Radiology Service [...] 23, 2023 11:46 AM documented in this encounterGood Samaritan Hospital02-24-2023 NoteHNO ID: [id number] Author: Nichole Granado APRN.JOSUE Service: ? Author [...] complete prior to appointment can be same day.[facility]02-24-2023 NoteHNO ID: [id number] Author: Brianda Garcia Service: ? Author Type: ? Type: Progress Notes Filed: 01/16/2023 4:25 PM Note Text: Patient name: Mimi Villasenor Are you being referred by a [facility] Spine Health Provider or Pain Management Provider at [facility]? No If answer is YES please schedule [...] facility where the MRI/CT/myelogram was completed: [place] [address] MRI/CT/myelogram viewable in Epic: No If not, please provide [phone] to fax in imaging reports for review. Also, please inform patient to hand carry imaging disc to appointment. XR (spine) within 12 months: Yes If YES,? please ask for the name/address of the facility where the XR was completed: [facility] [address] [place] [address] Dr. Pedraza's patients: Have you had previous [...] where the surgery was completed: Additional Comments [phone] No data available for this section General Surgery [place] Evaluation + Plan noteGeneral Surgery [place] Evyalation note* Diagnosis Lumbar radiculopathy- Primary Thoracic or lumbosacral neuritis or radiculitis, unspecified Chronic left-sided low back pain with left-sided sciatica Spinal stenosis, lumbar region, without neurogenic claudication Spondylolisthesis of lumbar region Acquired spondylolisthesis documented in this encounter [facility] note* Diagnosis Lumbar spondylosis Lumbosacral spondylosis without myelopathy documented in this encounter [facility] note* Diagnosis Lumbar radiculopathy- Primary Thoracic or lumbosacral neuritis or radiculitis, unspecified documented in this encounter [facility] note* Diagnosis Lumbar radiculopathy- Primary Thoracic or lumbosacral neuritis or radiculitis, unspecified Pre-op testing Preoperative examination, unspecified Lumbar radiculopathy Thoracic or lumbosacral neuritis or radiculitis, unspecified Pre-op testing Preoperative examination, unspecified documented in this encounter [facility] note* Diagnosis Educational circumstance- Primary Lumbar radiculopathy Thoracic or lumbosacral neuritis or radiculitis, unspecified Pre-op testing Preoperative examination, unspecified documented in this encounter [facility] note* Diagnosis S/P lumbar laminectomy- Primary Other postprocedural status documented in this encounter [facility] note* Diagnosis History of lumbar laminectomy- Primary documented in this encounter [facility] noteNo assessment information availableUniversity Hospitals [facility] Work Phone: Hospital Discharge instructions No data available for this section General Surgery [place] Hospital Discharge instructions Additional Instructions DISCHARGE INSTRUCTIONS [...] years. -Follow up with PCP. -Office number [phone]. [facility] Work Phone: Progress note No data available for this section General Surgery [place] Reason for referral (narrative)* Diagnostic Procedure Only (Routine) - Closed Specialty Diagnoses / Procedures Referred By Melonie t Referred To Contact XR IMAGING Diagnoses Lumbar spondylosis Procedures XR LUMBAR MOTION 4V AP/LAT/ FLEX/EXT RADEX SPINE LUMBOSACRAL MINIMUM 4 VIEWS Nichole Granado APRN.CRIMINAL INVESTIGATOR [address] [place] [address] Xr Imaging Referral ID Status Reason Start Date Expiration Date V isits Requested Visits Authorized [id number] Closed Auto-Generate d Referral 01/16/2023 02/15/2024 1 1 [facility] for referral (narrative) Referred by: SHEY ORR, Gayla [facility] Surgery [employer] Summary Purpose Family History No Family History [...] HIGH COMPLEX 45 MINS Keon Todd PA-C [address] [place] [address] [facility] [place] [address] [place] [address] Referral ID Status Reason Start Date Expiration Date Visits Requested Visits Authorized [id number] Pending Review Auto-Generat ed Referral 05/28/2023 05/27/2024 1 1 Specialty Diagnoses / Procedures Referred By Contac t Referred To Contact Diagnoses S/P lumbar laminectomy Procedures PROVIDER ORDERED FOLLOW UP OFFICE/OUTPATIENT [facility] MDM 60-74 MINUTES Keon Todd PA-C [address] [place] [address] Referral ID Status Reason Start Date Expiration Date Visits Requested Visits Authorized [id number] Authorized PCP Requested Referral 06/26/2023 05/27/2024 1 1 Specialty Diagnoses / Procedures Referred By Contac t Referred To Contact Diagnoses Lumbar radiculopathy Pre-op testing Procedures REFER TO PACC - PRE ANESTHESIA CONSULTATION CLINIC OFFICE/OUTPATIENT [facility] MDM 60-74 MINUTES Keon Todd PA-C [address] [place] [address] Referral ID Status Reason Start Date Expiration Date Visits Requested Visits Authorized [id number] Authorized PCP Requested Referral 03/06/2023 03/04/2024 1 [...] or prosecute any alcohol or drug abuse patient.[facility]itan HospitalIn the event this information is protected by the Federal Confidentiality of Alcohol and Drug Abuse Patient Records regulations: The Federal rules restrict any use of the information to criminally investigate or prosecute any alcohol or drug abuse patient.[facility] HospitalIn the event this information is protected by the Federal Confidentiality of Alcohol and Drug Abuse Patient Records regulations: The Federal rules restrict any use of the information to criminally investigate or prosecute any alcohol or drug abuse patient.[facility] HospitalIn the event this information is protected by the Federal Confidentiality of Alcohol and Drug Abuse Patient Records regulations: The Federal rules restrict any use of the information to criminally investigate or prosecute any alcohol or drug abuse patient.[facility] HospitalIn the event this information is protected by the Federal Confidentiality of Alcohol and Drug Abuse Patient Records regulations: The Federal rules restrict any use of the information to criminally investigate or prosecute any alcohol or drug abuse patient.[facility] HospitalIn the event this information is protected by the Federal Confidentiality of Alcohol and Drug Abuse Patient Records regulations: The Federal rules restrict any use of the information to criminally investigate or prosecute any alcohol or drug abuse patient.[facility] HospitalIn the event this information is protected by the Federal Confidentiality of Alcohol and Drug Abuse Patient Records regulations: The Federal rules restrict any use of the information to criminally investigate or prosecute any alcohol or drug abuse patient.[facility] HospitalIn the event this information is protected by the Federal Confidentiality of Alcohol and Drug Abuse Patient Records regulations: The Federal rules restrict any use of the information to criminally investigate or prosecute any alcohol or drug abuse patient.[facility] HospitalIn the event this information is protected by the Federal Confidentiality of Alcohol and Drug Abuse Patient Records regulations: The Federal rules restrict any use of the information to criminally investigate or prosecute any alcohol or drug abuse patient.[facility] HospitalIn the event this information is protected by the Federal Confidentiality of Alcohol and Drug Abuse Patient Records regulations: The Federal rules restrict any use of the information to criminally investigate or prosecute any alcohol or drug abuse patient.[facility] HospitalIn the event this information is protected by the Federal Confidentiality of Alcohol and Drug Abuse Patient Records regulations: The Federal rules restrict any use of the information to criminally investigate or prosecute any alcohol or drug abuse patient.[facility] HospitalIn the event this information is protected by the Federal Confidentiality of Alcohol and Drug Abuse Patient Records regulations: The Federal rules restrict any use of the information to criminally investigate or prosecute any alcohol or drug abuse patient.[facility] HospitalIn the event this information is protected by the Federal Confidentiality of Alcohol and Drug Abuse Patient Records regulations: The Federal rules restrict any use of the information to criminally investigate or prosecute any alcohol or drug abuse patient.[facility] HospitalIn the event this information is protected by the Federal Confidentiality of Alcohol and Drug Abuse Patient Records regulations: The Federal rules restrict any use of the information to criminally investigate or prosecute any alcohol or drug abuse patient.[facility] HospitalIn the event this information is protected by the Federal Confidentiality of Alcohol and Drug Abuse Patient Records regulations: The Federal rules restrict any use of the information to criminally investigate or prosecute any alcohol or drug abuse patient.[facility] Reason for Visit (unrecogniz ed section and content) Reason Comments New Patient Reason Comments [facility] J[facility] Specialty Diagnoses / Procedures Referred By Contac t Referred To Contact XR IMAGING Diagnoses Lumbar spondylosis Procedures XR LUMBAR MOTION 4V AP/LAT/ FLEX/EXT RADEX SPINE LUMBOSACRAL MINIMUM 4 VIEWS Nichole Granado APRN.CRIMINAL INVESTIGATOR [address] [place] [address] Xr Imaging Referral ID Status Reason Start Date Expiration Date V isits Requested Visits Authorized [id number] Closed Auto-Generate d Referral 01/16/2023 02/15/2024 1 1 Reason Comments Follow Up Reason Comments Patient Question Reason Comments Short Term Disability paperwork Reason Comments Established Patient Reason Comments Restriction form Reason Comments Established Patient Specialty Diagnoses / Procedures Referred By Contac t Referred To Contact Diagnoses S/P lumbar laminectomy Procedures PROVIDER ORDERED FOLLOW UP OFFICE/OUTPATIENT [facility] 60-74 MINUTES Keon Todd PA-C [address] [place] [address] Referral ID Status Reason Start Date Expiration Date V isits Requested Visits Authorized [id number] Closed PCP Requested Referral 06/26/2023 05/27/2024 1 1 Reason Comments Return To Work Letter Care Teams (unrecognized sec tion and content) 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 Relationship Specialty Start Date End Date Wendy Daniel MD [address] [place] [address] Referring Family Medicine 01/16/23 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 Relationship Specialty Start Date End Date Wendy Daniel MD [address] [place] [id number] Referring Family Medicine 01/16/23 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 Relationship Specialty Start Date End Date Wendy Daniel MD [address] [place] [place] [id number] Referring Family Medicine 01/16/23 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 Relationship Specialty Start Date End Date Wendy Daniel MD Referring Family Medicine 01/16/23 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 Relationship Specialty Start Date End Date Wendy Daniel MD Referring Family Medicine 01/16/23 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 Relationship Specialty Start Date End Date Wendy Daniel MD [address] [place] [facility] [address] PCP - General Family Medicine 03/09/23 Wendy Daniel MD Referring Family Medicine 01/16/23 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 Relationship Specialty Start Date End Date Wendy Daniel MD [address] [place] [facility] [address] PCP - General Family Medicine 03/09/23 Wendy Daniel MD Referring Family Medicine 01/16/23 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 Relationship Specialty Start Date End Date Wendy Daniel MD [address] [place] [facility] [address] PCP - General Family Medicine 03/09/23 Wendy Daniel MD Referring Family Medicine 01/16/23 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 Relationship Specialty Start Date End Date Wendy Daniel MD [address] [place] [facility] [address] PCP - General Family Medicine 03/09/23 Wendy Daniel MD Referring Family Medicine 01/16/23 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 Relationship Specialty Start Date End Date Wendy Daniel MD [address] [place] [facility] [address] PCP - General Family Medicine 03/09/23 Wendy Daniel MD Referring Family Medicine 01/16/23 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 Relationship Specialty Start Date End Date Wendy Daniel MD [address] [place] [address] PCP - General Family Medicine 03/09/23 Wendy Daniel MD Referring Family Medicine 01/16/23 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 Relationship Specialty Start Date End Date Wendy Daniel MD [address] [place] [address] PCP - General Family Medicine 03/09/23 Wendy Daniel MD Referring Family Medicine 01/16/23 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 Relationship Specialty Start Date End Date Wendy Daniel MD [address] [place] [address] PCP - General Family Medicine 03/09/23 Wendy Daniel MD Referring Family Medicine 01/16/23 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 Relationship Specialty Start Date End Date Wendy Daniel MD [address] [place] [address] PCP - General Family Medicine 03/09/23 Wendy [...] content) DATE CREATED AUTHOR 02/28/2023 [facility] DATE CREATED AUTHOR AUTHOR'S ORGANIZ ATION 05/06/2023 [facility] DATE CREATED AUTHOR AUTHOR'S ORGANIZ ATION 06/30/2023 [facility] DATE CREATED AUTHOR AUTHOR'S ORGANIZ ATION 08/01/2023 [facility] DATE CREATED AUTHOR AUTHOR'S ORGANIZ ATION 08/12/2023 [facility] FOR RECORDS PERTAINING TO PATIENTS WHO [...] BE BASED ON THE PRIMARY CLINICAL RECORDS. [employer] provides no warranty or guarantee of the accuracy or completeness of information in this document.
[2025-03-10 08:49] LABS: Basophils Percent Auto 0.6 % (0.2-2.0); Eosinophils Absolute Auto 0.2 10^3/uL (0.0-0.7); Eosinophils Percent Auto 2.6 % (0.9-7.0); Hematocrit 51.3 % (42.0-54.0); Hemoglobin 17.8 g/dL (14.0-18.0); Immature Granulocytes Abs Auto 0.02 10^3/uL (0.00-0.03); Immature Granulocytes Pct Auto 0.3 % (0.0-0.5); Lymphocytes Absolute Auto 2.7 10^3/uL (1.2-3.8); Lymphocytes Percent Auto 38.8 % (20.5-60.0); Mean Corpuscular HGB Conc 34.7 g/dL (29.9-35.2); Mean Corpuscular Hemoglobin 33.6 pg (25.9-34.0); Mean Platelet Volume 8.8 fL (9.5-13.5); Monocytes Absolute Auto 0.4 10^3/uL (0.3-0.8); Monocytes Percent Auto 5.7 % (1.7-12.0); Neutrophils Absolute Auto 3.7 10^3/uL (1.4-6.5); Platelet Count 286 10^3/uL (150-450); Red Blood Count 5.29 10^6/uL (4.70-6.10); Red Cell Distribution Width 12.8 % (11.0-15.0)
[2025-03-10 09:36] LABS: Estimated Average Glucose 105 mg/dL; Glycohemoglobin A1C 5.3 % (4.5-6.2)
[2025-03-10 10:04] LABS: Alanine Aminotransferase 17 U/L (16-63); Albumin Globulin Ratio 0.9; Albumin Level 3.6 g/dL (3.4-5.0); Alkaline Phosphatase 100 U/L (46-116); Anion Gap 11.1; Aspartate Amino Transferase 18 U/L (15-37); BUN Creatinine Ratio 11.8; Bilirubin Total 0.8 mg/dL (0.2-1.0); Carbon Dioxide 28.2 mmol/L (21.0-32.0); Chloride 106 mmol/L (98-107); Chol HDL Ratio 3.8; Cholesterol 172 mg/dL (<=200); Estimated GFR (African America >60 (>=60 mL/min/1.73m^2); Estimated GFR (Non-African Ame >60 (>=60 mL/min/1.73m^2); Free T3 2.34 pg/mL (2.18-3.98); Globulin 3.8 g/dL; Glucose 92 mg/dL (74-106); HDL Cholesterol 45 mg/dL (40-60); LDL Cholesterol Calculated 108.4 mg/dL; Potassium 4.3 mmol/L (3.5-5.1); Sodium 141 mmol/L (136-145); Thyroid Stimulating Hormone 1.856 uIU/mL (0.358-3.740); Total Protein 7.4 g/dL (6.4-8.2); Triglycerides 93 mg/dL (<=150); VLDL CHOLESTEROL 18.6 mg/dL
[2025-03-10 10:10] LABS: Prostate Specific Antigen Scrn 1.42 ng/mL (<=4.00)
== END 2025-03-10 08:29 | disposition home or self-care (01) ==
LOC: LAB 08:29
PROVIDERS: PCP Family Medicine; Visit Provider Family Medicine
DX: Z00.00 Encounter for general adult medical examination without abnormal findings (principal)
CPT/HCPCS: 36415; 80053; 80061; 83036; 84436; 84443; 84481; 85025; G0103